=== PATIENT | male | born 1955 | race Caucasian/White ===

== ENCOUNTER 2017-04-18 15:49 | Inpatient (IN) ==
[2017-04-18 16:21] LABS: Basophils % 0.2 %; Hematocrit 38.9 % (37.5-50.1); Hemoglobin 13.6 g/dL (12.9-16.9); Lymphocytes # 1.2 K/mcL (0.6-4.6); Lymphocytes % 5.4 %; Mean Corpuscular Hemoglobin 31.7 pg (28.0-33.3); Mean Corpuscular Volume 90.7 fL (83.0-100.0); Mean Platelet Volume 7.8 fL (9.4-12.4); Monocytes # 2.2 K/mcL (0.0-1.3); Monocytes % 9.9 %; Neutrophils # 18.7 K/mcL (1.6-8.9); Platelet Count 451 K/mcL (140-400); Red Blood Count 4.29 M/mcL (4.19-5.50); Red Cell Distribution Width 12.4 % (11.5-14.5); Segmented Neutrophils % 83.5 %
[2017-04-18 16:26] LABS: INR 1.1
[2017-04-18 16:28] LABS: Activated Partial Thrombo Time 27.7 Seconds (26.0-36.0)
[2017-04-18 16:36] LABS: Alanine Aminotransferase 15 Units/L (0-55); Albumin 2.2 g/dL (3.5-5.0); Albumin/Globulin Ratio 0.4 (1.1-2.2); Alkaline Phosphatase 83 Units/L (38-126); Aspartate Amino Transferase 23 Units/L (5-34); BUN/Creatinine Ratio 9 (6-26); Bilirubin,Direct 0.2 mg/dL (0.0-0.5); Bilirubin,Indirect 0.4 mg/dL (0.0-1.2); Bilirubin,Total 0.6 mg/dL (0.2-1.2); Calcium 9.1 mg/dL (8.6-10.8); Carbon Dioxide 25 mEq/L (19-29); Chloride 83 mEq/L (98-109); Globulin 5.2 g/dL (2.4-3.5); Glucose 107 mg/dL (70-99); Osmolality,Calculated 254 (280-300); Potassium 2.8 mEq/L (3.5-4.5); Sodium 123 mEq/L (136-145); Total Protein 7.4 g/dL (6.0-8.3); eGFR For African Americans > 60 (> 60); eGFR For Non-African Americans > 60 (> 60)
[2017-04-18 16:37] LABS: Blood Urea Nitrogen 5 mg/dL (8-26)
[2017-04-18] MEDS ORDERED: Potassium Chloride 40 MEQ, Lidocaine 1% 2 ML in D5% in Water 500 ML IVPB ONE (17:07)
--- NOTE | 2017-04-18 18:43 | Emergency Department Note ---
Disposition Clinical Impression: Mass of right lung Disposition: Still a Patient Condition: Good Referrals: Andre Dodge MD [Primary Care Provider] - Forms: ED Satisfaction Letter SOB HPI - General Chief Complaint: ED Shortness of Breath/Dyspnea Stated Complaint: weakness, sent from Time Seen by Provider: 04/18/17 15:55 Source: patient, family Mode of arrival: ambulatory Limitations: no limitations Nursing Notes Reviewed: Yes Vital Signs Reviewed: Yes - History of Present Illness Patient presents to the ED with the chief complaint of weakness and shortness of breath. Patient has a long-standing history of smoking and hypertension. Reports that over the last several months he has been getting progressively more weak. He is also been getting more short of breath gradually over the last several weeks. In the last several days he has noticed increasing shortness of breath and has felt extremely weak. He is also had a mildly productive cough. Denies any chest discomfort, abdominal pain, vomiting, pain or swelling in his legs. - Related Data Home Medications Medication Instructions Recorded Confirmed Amlodipine Besylate 04/18/17 Dovonex 04/18/17 04/18/17 Halcinonide 04/18/17 Levaquin 04/18/17 Lidex 04/18/17 Nicotine Patch 04/18/17 Toprol Xl 04/18/17 Allergies Allergy/AdvReac Type Severity Reaction Status Date / Time losartan [From Cozaar] Allergy See Verified 04/18/17 13:41 Comments All systems ED: reviewed and negative except as stated. Constitutional: Reports: chills, weakness. Denies: fever Respiratory: Reports: cough, dyspnea, sputum production Gastrointestinal: Denies: vomiting Past Medical History - Past Medical History Attestation: Yes The following information was validated with the patient. Source: patient Medical history: Reports: hypertension - Social History Smoking Status: Current every day smoker Smokeless Tobacco Status: No Alcohol use: Reports: occasionally Drug use: Reports: none Physical Exam - General Limitations: no limitations General appearance: alert, in no apparent distress, cachectic - Head Head exam: atraumatic, normocephalic, normal inspection - ENT ENT exam: normal exam, normal oropharynx, mucous membranes moist - Neck Neck exam: Present: normal inspection, full ROM, trachea midline - Chest Chest inspection: Present: normal inspection, symmetric chest wall rise - Respiratory Respiratory exam: Absent: normal lung sounds bilaterally (Decreased lung sounds bilaterally, rhonchorous right upper lobe) - Cardiovascular Cardiovascular exam: Present: regular rate, normal rhythm, normal heart sounds - Abdominal Exam Abdominal exam: Present: soft, Non-Tender. Absent: tenderness, distention, guarding, rebound, rigidity - Extremities Exam Extremities exam: Present: normal inspection, full ROM. Absent: tenderness, pedal edema - Neurological Exam Neurological exam: Present: alert, oriented X3 - Psychiatric Psychiatric exam: Present: normal affect, normal mood - Skin Skin exam: Present: warm, dry, intact, normal color Course Course Narrative: 62-year-old male sent over for concerning chest x-ray urgent care. Large right upper lobe pneumonia versus malignancy. Smoking history and cachectic appearance, malignancy is suspected. We will check labs and CT his chest. - Reevaluation(s) Reevaluation #1: Patient will be signed out to the nighttime team, Dr. Gaming and Stephanie pending CT chest Vital Signs Temperature 97.6 F 04/18/17 15:50 Pulse Rate 83 04/18/17 15:50 Respiratory Rate 18 04/18/17 15:50 Blood Pressure 115/67 04/18/17 15:50 O2 Sat by Pulse Oximetry 97 04/18/17 15:50 Temperature 97.6 F 04/18/17 15:50 Pulse Rate 81 04/18/17 18:50 Respiratory Rate 18 04/18/17 18:50 Blood Pressure 125/72 04/18/17 18:50 O2 Sat by Pulse Oximetry 95 04/18/17 18:50 Oxygen Delivery Oxygen Delivery Room Air Shortness of Breath/Dyspnea - Lab Data Result diagrams: 04/18/17 16:10 04/18/17 16:10 Lab Results 04/18/17 04/18/17 04/18/17 Range/Units 16:10 16:10 16:10 WBC 22.4 H (4.3-11.1) K/mcL RBC 4.29 (4.19-5.50) M/mcL Hgb 13.6 (12.9-16.9) g/dL Hct 38.9 (37.5-50.1) % MCV 90.7 (83.0-100.0) fL MCH 31.7 (28.0-33.3) pg MCHC 35.0 (31.6-35.5) g/dL RDW 12.4 (11.5-14.5) % Plt Count 451 H (140-400) K/mcL MPV 7.8 L (9.4-12.4) fL Immature Gran % 1.0 (0-4) % Seg Neutrophils % 83.5 % Lymphocytes % 5.4 % Monocytes % 9.9 % Eosinophils % 0.0 % Basophils % 0.2 % Neutrophils # 18.7 H (1.6-8.9) K/mcL Lymphocytes # 1.2 (0.6-4.6) K/mcL Monocytes # 2.2 H (0.0-1.3) K/mcL Eosinophils # 0.0 (0.0-0.6) K/mcL Basophils # 0.0 (0.0-0.2) K/mcL PT (9.4-12.1) Seconds INR APTT (26.0-36.0) Seconds Sodium 123 L (136-145) mEq/L Potassium 2.8 L (3.5-4.5) mEq/L Chloride 83 L (98-109) mEq/L Carbon Dioxide 25 (19-29) mEq/L BUN 5 L (8-26) mg/dL Creatinine 0.55 L (0.72-1.25) mg/dL Est GFR ( Amer) > 60 (> 60) Est GFR (Non-Af Amer) > 60 (> 60) BUN/Creatinine Ratio 9 (6-26) Glucose 107 H (70-99) mg/dL Calculated Osmolality 254 L (280-300) Lactic Acid 1.9 (0.5-2.2) mmol/L Calcium 9.1 (8.6-10.8) mg/dL Total Bilirubin 0.6 (0.2-1.2) mg/dL Direct Bilirubin 0.2 (0.0-0.5) mg/dL Indirect Bilirubin 0.4 (0.0-1.2) mg/dL AST 23 (5-34) Units/L ALT 15 (0-55) Units/L Alkaline Phosphatase 83 (38-126) Units/L Troponin I (0-0.03) ng/mL B-Natriuretic Peptide (0-100) pg/mL Serum Total Protein 7.4 (6.0-8.3) g/dL Albumin 2.2 L (3.5-5.0) g/dL Globulin 5.2 H (2.4-3.5) g/dL Albumin/Globulin Ratio 0.4 L (1.1-2.2) 04/18/17 04/18/17 04/18/17 Range/Units 16:10 16:10 16:10 WBC (4.3-11.1) K/mcL RBC (4.19-5.50) M/mcL Hgb (12.9-16.9) g/dL Hct (37.5-50.1) % MCV (83.0-100.0) fL MCH (28.0-33.3) pg MCHC (31.6-35.5) g/dL RDW (11.5-14.5) % Plt Count (140-400) K/mcL MPV (9.4-12.4) fL Immature Gran % (0-4) % Seg Neutrophils % % Lymphocytes % % Monocytes % % Eosinophils % % Basophils % % Neutrophils # (1.6-8.9) K/mcL Lymphocytes # (0.6-4.6) K/mcL Monocytes # (0.0-1.3) K/mcL Eosinophils # (0.0-0.6) K/mcL Basophils # (0.0-0.2) K/mcL PT 12.0 (9.4-12.1) Seconds INR 1.1 APTT 27.7 (26.0-36.0) Seconds Sodium (136-145) mEq/L Potassium (3.5-4.5) mEq/L Chloride (98-109) mEq/L Carbon Dioxide (19-29) mEq/L BUN (8-26) mg/dL Creatinine (0.72-1.25) mg/dL Est GFR ( Amer) (> 60) Est GFR (Non-Af Amer) (> 60) BUN/Creatinine Ratio (6-26) Glucose (70-99) mg/dL Calculated Osmolality (280-300) Lactic Acid (0.5-2.2) mmol/L Calcium (8.6-10.8) mg/dL Total Bilirubin (0.2-1.2) mg/dL Direct Bilirubin (0.0-0.5) mg/dL Indirect Bilirubin (0.0-1.2) mg/dL AST (5-34) Units/L ALT (0-55) Units/L Alkaline Phosphatase (38-126) Units/L Troponin I 0.00 (0-0.03) ng/mL B-Natriuretic Peptide 119 H (0-100) pg/mL Serum Total Protein (6.0-8.3) g/dL Albumin (3.5-5.0) g/dL Globulin (2.4-3.5) g/dL Albumin/Globulin Ratio (1.1-2.2) Attestation Statement - Attestation Attestation: I, Damion Adams, examined this patient and my medical decision-making was reviewed with the TECHNICAL COORDINATOR/PA/Advanced Practice Nurse/Resident Physician. I agree with the documented findings, disposition and treatment plan as described except to the extent set forth below. His 2-year-old male presents emergency Department with concerns of increasing shortness of breath. Chest x-ray performed at urgent care setting shows large mass in the right upper lobe. No history of cancer in the past. Patient denies fever. He does have a mildly productive cough of white/green sputum. Laboratory evaluation shows significant leukocytosis. Patient is pending CT evaluation of his chest at the end of my shift. He was signed out to the night physician, Dr. Gaming pending imaging, reevaluation and likely admission for further evaluation of likely cancer.
[2017-04-18] MEDS ORDERED: Levofloxacin 750 MG/150 ML 750 MG/150 ML BAG IVPB ONE (20:36)
--- NOTE | 2017-04-18 20:53 | Emergency Department Note ---
Disposition Clinical Impression: Mass of right lung, Hypokalemia, Hyponatremia Community acquired pneumonia Qualifiers: Laterality: right Lung location: unspecified part of lung Qualified Code(s): J18.9 - Pneumonia, unspecified organism Disposition: Admitted As Inpatient Condition: Fair Referrals: Andre Dodge MD [Primary Care Provider] - Forms: ED Satisfaction Letter Time of Disposition: 21:03 SOB HPI - General Chief Complaint: ED Shortness of Breath/Dyspnea Stated Complaint: weakness, sent from Time Seen by Provider: 04/18/17 15:55 Source: patient, family Mode of arrival: ambulatory Limitations: no limitations Nursing Notes Reviewed: Yes Vital Signs Reviewed: Yes - Related Data Home Medications Medication Instructions Recorded Confirmed Amlodipine Besylate 04/18/17 Dovonex 04/18/17 04/18/17 Halcinonide 04/18/17 Levaquin 04/18/17 Lidex 04/18/17 Nicotine Patch 04/18/17 Toprol Xl 04/18/17 Allergies Allergy/AdvReac Type Severity Reaction Status Date / Time losartan [From Cozaar] Allergy See Verified 04/18/17 13:41 Comments Constitutional: Reports: chills, weakness. Denies: fever Respiratory: Reports: cough, dyspnea, sputum production Gastrointestinal: Denies: vomiting Past Medical History - Past Medical History Medical history: Reports: hypertension - Social History Smoking Status: Current every day smoker Smokeless Tobacco Status: No Alcohol use: Reports: occasionally Drug use: Reports: none Physical Exam - General Limitations: no limitations General appearance: alert, in no apparent distress, cachectic Course Course Narrative: This patient was signed out to me at shift change from Dr. Beach and Dr. Adams. Please refer to their notes for complete details of history and physical examination. Patient is a 62-year-old male smoker who presented with a complaint of generalized weakness which started last evening about 7 PM. He fell during the night trying to go to the bathroom. No injury from the fall. Today he has been very weak and unable to get around. He does complain of some mild shortness of breath which is chronic. He admits to a frequent cough which also is chronic but seems to be gradually getting worse. He has not noticed any fever. He was seen at an urgent care and a chest x-ray showed a large right upper lobe dense consolidation. At shift change patient is awaiting a CTA of the lungs. On examination patient is a well-developed thin elderly male in no acute distress. He is alert and oriented 3. There is no cyanosis or diaphoresis. Chest is nontender to palpation. Patient has coarse rhonchi and congestion in the right upper lobe on auscultation. A few scattered wheezes. Heart regular rate and rhythm. Abdomen soft and nontender with normal bowel sounds. - Reevaluation(s) Reevaluation #1: Test results and plan discussed with patient and and they are agreeable to hospital admission. Patient is receiving IV potassium for his hypokalemia. He has already had blood cultures obtained and will be started on Levaquin. I will consult the hospitalist for admission. Time: 20:50 - Consultations Consultation #1: The hospitalist, Dr. Vick, was consulted and accepted admission of the patient. Time: 21:00 Vital Signs Temperature 97.6 F 04/18/17 15:50 Pulse Rate 83 04/18/17 15:50 Respiratory Rate 18 04/18/17 15:50 Blood Pressure 115/67 04/18/17 15:50 O2 Sat by Pulse Oximetry 97 04/18/17 15:50 Temperature 97.6 F 04/18/17 15:50 Pulse Rate 103 04/18/17 20:15 Respiratory Rate 18 04/18/17 18:50 Blood Pressure 122/83 04/18/17 20:15 O2 Sat by Pulse Oximetry 93 04/18/17 20:15 Oxygen Delivery Oxygen Delivery Room Air Shortness of Breath/Dyspnea - Lab Data Result diagrams: 04/18/17 16:10 04/18/17 16:10 Lab Results 04/18/17 04/18/17 04/18/17 Range/Units 16:10 16:10 16:10 WBC 22.4 H (4.3-11.1) K/mcL RBC 4.29 (4.19-5.50) M/mcL Hgb 13.6 (12.9-16.9) g/dL Hct 38.9 (37.5-50.1) % MCV 90.7 (83.0-100.0) fL MCH 31.7 (28.0-33.3) pg MCHC 35.0 (31.6-35.5) g/dL RDW 12.4 (11.5-14.5) % Plt Count 451 H (140-400) K/mcL MPV 7.8 L (9.4-12.4) fL Immature Gran % 1.0 (0-4) % Seg Neutrophils % 83.5 % Lymphocytes % 5.4 % Monocytes % 9.9 % Eosinophils % 0.0 % Basophils % 0.2 % Neutrophils # 18.7 H (1.6-8.9) K/mcL Lymphocytes # 1.2 (0.6-4.6) K/mcL Monocytes # 2.2 H (0.0-1.3) K/mcL Eosinophils # 0.0 (0.0-0.6) K/mcL Basophils # 0.0 (0.0-0.2) K/mcL PT (9.4-12.1) Seconds INR APTT (26.0-36.0) Seconds Sodium 123 L (136-145) mEq/L Potassium 2.8 L (3.5-4.5) mEq/L Chloride 83 L (98-109) mEq/L Carbon Dioxide 25 (19-29) mEq/L BUN 5 L (8-26) mg/dL Creatinine 0.55 L (0.72-1.25) mg/dL Est GFR ( Amer) > 60 (> 60) Est GFR (Non-Af Amer) > 60 (> 60) BUN/Creatinine Ratio 9 (6-26) Glucose 107 H (70-99) mg/dL Calculated Osmolality 254 L (280-300) Lactic Acid 1.9 (0.5-2.2) mmol/L Calcium 9.1 (8.6-10.8) mg/dL Total Bilirubin 0.6 (0.2-1.2) mg/dL Direct Bilirubin 0.2 (0.0-0.5) mg/dL Indirect Bilirubin 0.4 (0.0-1.2) mg/dL AST 23 (5-34) Units/L ALT 15 (0-55) Units/L Alkaline Phosphatase 83 (38-126) Units/L Troponin I (0-0.03) ng/mL B-Natriuretic Peptide (0-100) pg/mL Serum Total Protein 7.4 (6.0-8.3) g/dL Albumin 2.2 L (3.5-5.0) g/dL Globulin 5.2 H (2.4-3.5) g/dL Albumin/Globulin Ratio 0.4 L (1.1-2.2) 04/18/17 04/18/17 04/18/17 Range/Units 16:10 16:10 16:10 WBC (4.3-11.1) K/mcL RBC (4.19-5.50) M/mcL Hgb (12.9-16.9) g/dL Hct (37.5-50.1) % MCV (83.0-100.0) fL MCH (28.0-33.3) pg MCHC (31.6-35.5) g/dL RDW (11.5-14.5) % Plt Count (140-400) K/mcL MPV (9.4-12.4) fL Immature Gran % (0-4) % Seg Neutrophils % % Lymphocytes % % Monocytes % % Eosinophils % % Basophils % % Neutrophils # (1.6-8.9) K/mcL Lymphocytes # (0.6-4.6) K/mcL Monocytes # (0.0-1.3) K/mcL Eosinophils # (0.0-0.6) K/mcL Basophils # (0.0-0.2) K/mcL PT 12.0 (9.4-12.1) Seconds INR 1.1 APTT 27.7 (26.0-36.0) Seconds Sodium (136-145) mEq/L Potassium (3.5-4.5) mEq/L Chloride (98-109) mEq/L Carbon Dioxide (19-29) mEq/L BUN (8-26) mg/dL Creatinine (0.72-1.25) mg/dL Est GFR ( Amer) (> 60) Est GFR (Non-Af Amer) (> 60) BUN/Creatinine Ratio (6-26) Glucose (70-99) mg/dL Calculated Osmolality (280-300) Lactic Acid (0.5-2.2) mmol/L Calcium (8.6-10.8) mg/dL Total Bilirubin (0.2-1.2) mg/dL Direct Bilirubin (0.0-0.5) mg/dL Indirect Bilirubin (0.0-1.2) mg/dL AST (5-34) Units/L ALT (0-55) Units/L Alkaline Phosphatase (38-126) Units/L Troponin I 0.00 (0-0.03) ng/mL B-Natriuretic Peptide 119 H (0-100) pg/mL Serum Total Protein (6.0-8.3) g/dL Albumin (3.5-5.0) g/dL Globulin (2.4-3.5) g/dL Albumin/Globulin Ratio (1.1-2.2)
[2017-04-18] MEDS ORDERED: Ondansetron 4 MG/2 ML VIAL IVP PRN (22:41)
[2017-04-18] MEDS ORDERED: Acetaminophen 325 MG TABLET PO PRN (22:41)
[2017-04-18] MEDS ORDERED: *HR* Morphine 2 MG/ML SYRINGE IVP PRN (22:41)
[2017-04-18] MEDS ORDERED: Naloxone 0.4 MG/ML INJ IVP PRN (22:41)
[2017-04-18] MEDS ORDERED: 0.9 % Sodium Chloride w KCl 20 MEQ/1,000 ML MLS IVC SCH (22:45)
[2017-04-18] MEDS ORDERED: *HR* LORazepam 2 MG/ML VIAL IVP PRN (22:47)
[2017-04-18] MEDS ORDERED: Vancomycin 750 MG in D5% in Water 250 ML IVPB SCH (23:00)
--- NOTE | 2017-04-18 23:02 | Internal Med History&Physical ---
Date of Encounter: 04/18/17 Time of Encounter: 22:00 Assessment and Plan (1) Pneumonia Current visit: Yes Status: Acute 1. Will try to obtain sputum culture and gram stain; blood cultures drawn in ER. 2. Strong suspicion for post-obstructive process and aspiration as well. 3. Will treat with IV Vancomycin, Zosyn, and Flagyl. 4. Oxygen and aerosols as needed for support. Qualifiers: Pneumonia type: due to unspecified organism Laterality: right Lung location: upper lobe of lung Qualified Code(s): J18.1 - Lobar pneumonia, unspecified organism (2) Mass of right lung Current visit: Yes Status: Suspected 1. Suspect lung cancer. 2. Consult Pulmonology; patient will need bronchoscopy or CT guided biopsy. (3) Alcoholism Current visit: Yes Status: Chronic 1. Patient at high risk of withdrawal. 2. Will start CIWA protocol. 3. Will order BEER TID with meals -- one can. 4. MVI, Thiamine, Folate daily in IVF. 5. Monitor closely for withdrawal. (4) Hypokalemia Current visit: Yes Status: Acute 1. Patient received 40 meQ IV in ER. 2. Will recheck around midnight and with AM labs. 3. Monitor closely and treat as needed. (5) Hyponatremia Current visit: Yes Status: Acute 1. Likely due to SIADH from pneumonia and/or lung mass compounded by chronic alcohol abuse. 2. Will gingerly hydrate with IVF as he appears a little dry. 3. Monitor sodium closely. I suspect this is chronic given his history. (6) DVT prophylaxis Current visit: Yes Status: Acute 1. Heparin SQ. Internal Medicine - H&P: HPI Chief complaint: falling; weaknees; cough Admitted From: Emergency Dept Plans for Post Hospital Care: Home History of present illness: Mr. Barfield is a 62 year old male who presents with a history of falling, profound weakness, and inability to stand up since yesterday. He has had significant weakness over the last few weeks, but it truly bothered him yesterday and into today. He also had some productive cough over the last few days with some subjective low-grade fevers. He has had no nausea or vomiting but he has had some loose stool since yesterday. He has had about a 5 pound weight loss over the last few weeks. He first went to urgent care and was referred to the ER after having a chest x-ray confirming right upper lobe pneumonia and possible mass. He had CT scan in the ER which confirmed the same findings, and a mass cannot be ruled out. He was found to be profoundly hypokalemic and hyponatremic as well. He was subsequently admitted to the hospitalist service. I met patient and his in the ER and they confirmed above history. Patient appears cachectic and very weak. He is a heavy drinker of alcohol, drinking a sixpack of beer every day for the last 30+ years. He also is smokes at least a 6 pack of beer per day for the last 40 years. He has gone through alcohol withdrawal in the past, and he and his are both asking me to order him some beer while in the hospital so as to avoid alcohol withdrawal. I discussed with them the finding that he probably has lung cancer complicated by pneumonia. However, the diagnosis is not yet confirmed until he undergoes biopsy, either via bronchoscopy and/or CT-guided IR procedure. They both voiced understanding and agreed to proceed with hospitalization and further diagnostic workup. Past Med Surg Social Fam HX - Past Medical History Attestation: Yes The following information was validated with the patient. Source: patient, old records reviewed, obtained from family Medical history: hypertension, other (alcoholism) Psychiatric history: no psych history - Past Surgical History Surgical History: no surgical history - Social History Smoking Status: Current every day smoker Smokeless Tobacco Status: No Alcohol use: heavy Drug use: none Current living situation: Home, With Family Activity Level: Independent ambulation - Family History Mother Living Status: Still Living Hx Family Respiratory Disorders: Yes Father Living Status: Hx Family Respiratory Disorders: No Hx Family Endocrine Disorder: Yes (diabetes) Internal Medicine - H&P: Meds Amlodipine Besylate 04/18/17 [History] Dovonex 04/18/17 [History] Halcinonide 04/18/17 [History] Levaquin 04/18/17 [History] Lidex 04/18/17 [History] Nicotine Patch 04/18/17 [History] Toprol Xl 04/18/17 [History] 3 Allergy/AdvReac Type Severity Reaction Status Date / Time losartan [From Cozaar] Allergy See Verified 04/18/17 13:41 Comments - Constitutional Constitutional: anorexia, fever(s), weight loss, no chills, no night sweats - EENT Eyes: 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), no blurry vision Ears: no ear pain, no tinnitus Nose, mouth and throat: no sinus pressure, no sore throat - Cardiovascular Cardiovascular ROS IM: dyspnea, dyspnea on exertion, lightheadedness, no chest pain, no syncope - Respiratory Respiratory: cough, dyspnea, dyspnea on exertion, wheezing, chest congestion, excessive phlegm production, no hemoptysis - Gastrointestinal Gastrointestinal: diarrhea, no abdominal pain, no hematemesis, no hematochezia, no melena, no nausea, no vomiting - Genitourinary Genitourinary ROS male: no dysuria, no flank pain, no hematuria - Musculoskeletal Musculoskeletal ROS IM: no arthralgias, no back pain - Integumentary Integumentary IM: no rash, no jaundice - Neurological Neurological ROS: weakness, no focal weakness, no frequent falls, no headache(s) , no vertigo - Psychiatric Psychiatric: no anxiety, no depression - Endocrine Endocrine IM: no cold intolerance, no heat intolerance, no polydipsia, no polyuria - Hematologic/Lymphatic Hematologic/Lymphatic: easy bruising, no lymphadenopathy - Allergic/Immunologic Allergic/Immunologic: wheezing, no GI upset with certain foods - Constitutional Vitals: Temp Pulse Resp BP Pulse Ox 97.6 F 78 20 116/74 91 04/18/17 15:50 04/18/17 21:16 04/18/17 22:15 04/18/17 22:15 04/18/17 21:16 General appearance: Present: cachectic, A&O X 3, underweight, answers questions appropriately - Head Head exam: Present: atraumatic, normal inspection - Expanded Head Exam Head exam expanded: Absent: abrasion, contusion, general tenderness - Eye Eye exam: Absent: scleral icterus Pupils: Present: irregular (right -- blind) - ENT ENT exam: Present: mucous membranes dry, normal exam - Neck Neck exam general surgery: Present: full ROM, supple, trachea midline. Absent: lymphadenopathy, tenderness - Respiratory Respiratory exam: Present: decreased breath sounds (especially in right upper lobe), prolonged expiratory phase, rhonchi, wheezes. Absent: chest wall tenderness, rales, respiratory distress Additional comments: barrel chested - Cardiovascular Cardiovascular exam: Present: RRR, +S1, +S2. Absent: diastolic murmur, JVD, systolic murmur - GI/Abdominal GI/Abdominal exam: Present: normal bowel sounds, soft. Absent: guarding, hepatomegaly, mass, rebound, splenomegaly, tenderness - Extremities Exam Extremities exam: Present: full ROM, warm. Absent: calf tenderness, joint swelling, pedal edema Additional comments: muscle atrophy of all 4 extremities - Back Exam Back exam: Present: normal inspection. Absent: CVA tenderness (L), CVA tenderness (R) - Neurological Exam Neurological exam: Present: alert, CN II-XII intact, oriented X3, no focal deficits Additional comments: generalized weakness but no focal deficits - Psychiatric Psychiatric exam: Present: flat affect - Skin Skin exam: Present: dry, warm. Absent: rash Internal Med - H&P Results - Labs CBC & Chem 7: 04/18/17 16:10 04/18/17 16:10 - EKG Data -: EKG Interpreted by Myself EKG shows normal: sinus rhythm - EKG Data Prior EKG available for review: no EKG comments: 04/18/17 23:10 NSR; no acute changes - Diagnostic Studies Chest x-ray Status: image reviewed by me (RUL infiltrate/mass) CT scan - chest Additional comments: CT report reviewed
[2017-04-18] MEDS: Nicotine 21 MG PATCH.TD24 TD SCH (23:19)
[2017-04-18] MEDS: Beer can PO SCH (23:21)
[2017-04-18] MEDS: Piperacillin/Tazobactam 3.375 GM in D5% in Water (Mini-Bag+) 100 ML IVPB SCH (23:32)
[2017-04-18] MEDS: MetroNIDAZOLE 500 MG/100 ML 500 MG/100 ML BAG IVPB SCH (23:34)
[2017-04-19 00:14] LABS: Basophils % 0.1 %; Hematocrit 32.8 % (37.5-50.1); Lymphocytes # 0.9 K/mcL (0.6-4.6); Lymphocytes % 4.3 %; Mean Corpuscular HGB Conc 35.7 g/dL (31.6-35.5); Mean Corpuscular Hemoglobin 32.9 pg (28.0-33.3); Mean Corpuscular Volume 92.1 fL (83.0-100.0); Mean Platelet Volume 7.8 fL (9.4-12.4); Monocytes # 2.4 K/mcL (0.0-1.3); Monocytes % 11.9 %; Neutrophils # 16.6 K/mcL (1.6-8.9); Platelet Count 393 K/mcL (140-400); Red Blood Count 3.56 M/mcL (4.19-5.50); Red Cell Distribution Width 12.3 % (11.5-14.5); Segmented Neutrophils % 82.7 %
[2017-04-19 00:15] LABS: Hemoglobin 11.7 g/dL (12.9-16.9)
[2017-04-19 00:30] LABS: BUN/Creatinine Ratio 8 (6-26); Calcium 8.4 mg/dL (8.6-10.8); Carbon Dioxide 26 mEq/L (19-29); Chloride 87 mEq/L (98-109); Glucose 102 mg/dL (70-99); Magnesium 1.3 mg/dL (1.6-2.6); Osmolality,Calculated 251 (280-300); Potassium 3.1 mEq/L (3.5-4.5); Sodium 122 mEq/L (136-145); eGFR For African Americans > 60 (> 60); eGFR For Non-African Americans > 60 (> 60)
[2017-04-19 00:32] LABS: Blood Urea Nitrogen 4 mg/dL (8-26)
[2017-04-19] MEDS ORDERED: Vancomycin 1,250 MG in D5% in Water 250 ML IVPB ONE (01:00)
[2017-04-19] MEDS ORDERED: Magnesium Sulfate 2 GM in D5% in Water 100 ML IVPB ONE (01:04)
[2017-04-19] MEDS: *HR* Heparin 5,000 UNIT/ML VIAL SQ SCH ×2 (06:21→18:46)
[2017-04-19 06:57] LABS: BUN/Creatinine Ratio 6 (6-26); Carbon Dioxide 26 mEq/L (19-29); Chloride 89 mEq/L (98-109); Glucose 121 mg/dL (70-99); Potassium 3.3 mEq/L (3.5-4.5); Sodium 123 mEq/L (136-145); eGFR For African Americans > 60 (> 60); eGFR For Non-African Americans > 60 (> 60)
[2017-04-19 06:58] LABS: Alanine Aminotransferase 11 Units/L (0-55); Albumin/Globulin Ratio 0.5 (1.1-2.2); Alkaline Phosphatase 64 Units/L (38-126); Aspartate Amino Transferase 16 Units/L (5-34); Bilirubin,Total 0.5 mg/dL (0.2-1.2); Globulin 3.9 g/dL (2.4-3.5); Magnesium 1.9 mg/dL (1.6-2.6); Osmolality,Calculated 254 (280-300)
[2017-04-19 07:08] LABS: Albumin 1.8 g/dL (3.5-5.0); Blood Urea Nitrogen 3 mg/dL (8-26); Total Protein 5.7 g/dL (6.0-8.3)
[2017-04-19] MEDS ORDERED: *HR* LORazepam 2 MG/ML VIAL IVP PRN ×2 (08:11)
[2017-04-19] MEDS: MetroNIDAZOLE 500 MG/100 ML 500 MG/100 ML BAG IVPB SCH ×2 (08:47→11:10)
[2017-04-19] MEDS: Nicotine 21 MG PATCH.TD24 TD SCH (08:49)
[2017-04-19] MEDS: Folic Acid 1 MG TABLET PO SCH (08:49)
[2017-04-19] MEDS: Thiamine (B-1) 100 MG TABLET PO SCH (09:08)
[2017-04-19] MEDS: Beer can PO SCH (09:10)
[2017-04-19] MEDS: Piperacillin/Tazobactam 3.375 GM in D5% in Water (Mini-Bag+) 100 ML IVPB SCH (09:10)
--- NOTE | 2017-04-19 09:36 | Pulmonology Consult Note ---
Date of Encounter: 04/19/17 Time of Encounter: 09:00 Assessment and Plan (1) Mass of right lung Current Visit: Yes Status: Suspected I have reviewed CT chest and discussed with primary team that I suspect there is a possibility of endobronchial lesion and there is dense area of consolidation which I suspect postobstructive collapse of the lung versus tumor and obviously postobstructive pneumonia is a possibility. Patient has significant history of smoking tobacco and had a suspicion this is malignant in nature. Patient will need to airway inspection and biopsy. I have explained this to the patient and his family in the presence of the nurse and explained all the risks, alternative, benefits of the procedure and he understand and he agreed. Patient will be nothing by mouth post midnight for the procedure tomorrow. (2) Emphysema of lung Current Visit: Yes Status: Chronic Patient has significant emphysema from smoking tobacco and bronchodilators is recommended. This was discussed with primary team. Qualifiers: Emphysema type: centrilobular Qualified Code(s): J43.2 - Centrilobular emphysema (3) Hyponatremia Current Visit: Yes Status: Acute This could be multifactorial and there is significant history of alcohol abuse which could be a reason and also SIADH is a possibility. Checking urine osmolality and sodium sodium will be helpful. Clinically patient is dry and replacement is recommended with normal saline and monitor sodium level if it drops again he might need 3% saline. (4) Alcoholism Current Visit: Yes Status: Chronic (5) Tobacco abuse Current Visit: Yes Status: Chronic Patient was advised to quit smoking (6) Tobacco abuse counseling Current Visit: Yes Status: Acute (7) Pneumonia Current Visit: Yes Status: Acute This could be postobstructive and broad-spectrum antibiotics are reasonable. Recommend to stop Flagyl. Qualifiers: Pneumonia type: due to unspecified organism Laterality: right Lung location: upper lobe of lung Qualified Code(s): J18.1 - Lobar pneumonia, unspecified organism History of Present Illness Consult date: 04/19/17 Requesting physician: Samantha Huffman Reason for consult: abnormal CXR/CT, other (Lung mass) Chief complaint: Cough and generalized weakness History of present illness: This is a very pleasant 62-year-old male with significant history of smoking tobacco more than [id number] and continue to smoke. Patient is hard of hearing and history is taken from family at the bedside and also from the patient. Patient has history of falling and generalized weakness and could not stand up for the last few days. He has been having productive white sputum but denies any hemoptysis or chest pain. He has about 4-5 pounds of weight loss and poor appetite. He denies any nausea or vomiting. He had a chest x-ray which showed right upper lobe pneumonia and CT chest was done with evidence of dense consolidation of the right upper lobe/mass to my reading. He was found also to be hyponatremic and pulmonary consulted for an evaluation. He has significant history of heavy drinking of alcohol about 6 pack of beer every day for more than 30 years. He denies any history of TB in the past and no night sweats and also denies any recent travel or sick contact. According to patient he has never seen a managed care manager and never had pulmonary function test and he has not been using any inhalers. He denies any significant dyspnea. Past Med Surg Social Fam HX - Past Medical History Medical history: hypertension Psychiatric history: no psych history - Past Surgical History Surgical History: no surgical history - Social History Smoking Status: Current every day smoker Packs per day: 1 Smokeless Tobacco Status: No Alcohol use: occasionally Drug use: none - Family History Father Hx Family Cardiac Disorders: Yes Mother Living Status: Still Living Hx Family Respiratory Disorders: Yes Medications and Allergies Amlodipine Besylate 04/18/17 [History] Dovonex 04/18/17 [History] Halcinonide 04/18/17 [History] Levaquin 04/18/17 [History] Lidex 04/18/17 [History] Nicotine Patch 04/18/17 [History] Toprol Xl 04/18/17 [History] 3 Allergy/AdvReac Type Severity Reaction Status Date / Time losartan [From Cozaar] Allergy See Verified 04/18/17 13:41 Comments All Systems: A 10-system review of systems was performed and is negative for pertinent findings except as documented above in the HPI. Physical Examination Vital Signs: Vital Signs, Last 4 Hours Temp Pulse Resp BP Pulse Ox 04/19/17 07:01 97.8 F 72 16 115/61 94 General appearance: no acute distress Eyes: nonicteric ENT: oropharynx dry Mallampati (class): 1 Neck: supple, no lymphadenopathy Effort: normal Inspection: hyperextended Auscultation: left: clear, right: diminished breath sounds (Right upper lobe zone) Percussion: bilateral: not dull Cardiovascular: regular rate and rhythm Gastrointestinal: normoactive bowel sounds, non-distended Extremities: no cyanosis, no edema normal mental status, non-focal exam depressed Results - Laboratory Findings CBC and BMP: 04/19/17 00:04 04/19/17 06:06 PT/INR, D-dimer PT 12.0 Seconds (9.4-12.1) 04/18/17 16:10 Abnormal lab findings: Abnormal lab results WBC 20.1 K/mcL (4.3-11.1) H 04/19/17 00:04 RBC 3.56 M/mcL (4.19-5.50) L 04/19/17 00:04 Hgb 11.7 g/dL (12.9-16.9) L D 04/19/17 00:04 Hct 32.8 % (37.5-50.1) L 04/19/17 00:04 MCHC 35.7 g/dL (31.6-35.5) H 04/19/17 00:04 MPV 7.8 fL (9.4-12.4) L 04/19/17 00:04 Neutrophils # 16.6 K/mcL (1.6-8.9) H 04/19/17 00:04 Monocytes # 2.4 K/mcL (0.0-1.3) H 04/19/17 00:04 Sodium 123 mEq/L (136-145) L 04/19/17 06:06 Potassium 3.3 mEq/L (3.5-4.5) L 04/19/17 06:06 Chloride 89 mEq/L (98-109) L 04/19/17 06:06 BUN 3 mg/dL (8-26) L 04/19/17 06:06 Creatinine 0.53 mg/dL (0.72-1.25) L 04/19/17 06:06 Glucose 121 mg/dL (70-99) H 04/19/17 06:06 Calculated Osmolality 254 (280-300) L 04/19/17 06:06 Calcium 8.0 mg/dL (8.6-10.8) L 04/19/17 06:06 B-Natriuretic Peptide 119 pg/mL (0-100) H 04/18/17 16:10 Serum Total Protein 5.7 g/dL (6.0-8.3) L D 04/19/17 06:06 Albumin 1.8 g/dL (3.5-5.0) L 04/19/17 06:06 Globulin 3.9 g/dL (2.4-3.5) H 04/19/17 06:06 Albumin/Globulin Ratio 0.5 (1.1-2.2) L 04/19/17 06:06 - Diagnostic Findings CT scan - chest: report reviewed, image reviewed - Clinical Findings Intake & Output: Intake & Output 04/18/17 04/19/17 04/19/17 23:59 07:59 15:59 Intake Total 522 / 522 731 / 731 Output Total 0 / 0 525 / 525 Balance 522 / 522 206 / 206 Weight 56.8 kg Consult Discharge Plan - Plan Referrals: Andre Dodge MD [Primary Care Provider] -
[2017-04-19] MEDS ORDERED: Ipratropium/Albuterol Neb 3 ML IH PRN (10:29)
--- NOTE | 2017-04-19 10:33 | Internal Med Progress Note ---
Date of Encounter: 04/19/17 Time of Encounter: 10:32 - Assessment and plan (1) Pneumonia Current Visit: Yes Status: Acute Assessment and plan: will continue IV abx with Vancomycin and Zosyn follow up blood cultures O2 supplementation closely monitor respiratory status Qualifiers: Pneumonia type: due to unspecified organism Laterality: right Lung location: upper lobe of lung Qualified Code(s): J18.1 - Lobar pneumonia, unspecified organism (2) Mass of right lung Current Visit: Yes Status: Suspected Assessment and plan: Pulmonary evaluation appreciated NPO after midnight for bronchoscopy continue IV abx as listed above bronchodilator support (3) Hypokalemia Current Visit: Yes Status: Acute Assessment and plan: K supplemented continue to monitor electrolytes and replace as needed (4) Hyponatremia Current Visit: Yes Status: Chronic Assessment and plan: likely secondary to alcohol abuse and SIADH given lung mass will continue with fluid restriction at this time mental status AAO x 3 therefore will hold off on 3% NS will closely monitor sodium levels q6h, correction goal: 6-8Meq in 24 hours will obtain urine Na and osm. will consider nephrology evaluation if hyponatremia worsens despite fluid restriction Will consider 3% NS if hyponatremia worsens with an acute mental status change (5) Alcoholism Current Visit: Yes Status: Chronic Assessment and plan: closely monitoring for alcohol withdrawal symptoms continue CIWA protocol Ativan prn as per CIWA protocol Thiamine, Folate supplementation (6) DVT prophylaxis Current Visit: Yes Status: Acute Assessment and plan: Heparin SQ (7) Tobacco abuse Current Visit: Yes Status: Chronic Assessment and plan: nicotine supplementation provided (8) Emphysema of lung Current Visit: Yes Status: Chronic Qualifiers: Emphysema type: centrilobular Qualified Code(s): J43.2 - Centrilobular emphysema - Subjective Interval history: Patient seen and examined with family present at bedside. Patient denies any sob at this time. He is noted to have right lung mass for which he will undergo bronchoscopy for diagnostic purposes. - Constitutional Vitals: Temp Pulse Resp BP Pulse Ox 97.8 F 72 16 115/61 94 04/19/17 07:01 04/19/17 07:01 04/19/17 07:01 04/19/17 07:01 04/19/17 07:01 General appearance: Present: cachectic, A&O X 3, no acute distress, underweight , answers questions appropriately - Head Head exam: Present: atraumatic, normocephalic - Eye Eye exam: Present: conjuntiva pink, sclera anicteric - Respiratory Respiratory exam: Absent: accessory muscle use, wheezes (coarse breath sounds diffusely ), tachypnea - Cardiovascular Cardiovascular exam: Present: RRR, +S1, +S2. Absent: diastolic murmur, gallop, rubs, systolic murmur - GI/Abdominal GI/Abdominal exam: Present: normal bowel sounds, soft, no peritoneal signs. Absent: distended, tenderness - Extremities Exam Extremities exam: Present: warm, radial pulses palpable and symmetrical. Absent : calf tenderness, cyanotic, pedal edema - Neurological Exam Neurological exam: Present: alert, oriented X3 Internal Medicine: Result - Labs CBC & Chem 7: 04/19/17 00:04 04/19/17 08:37 Labs: Short CBC 04/19/17 Range/Units 00:04 WBC 20.1 H (4.3-11.1) K/mcL Hgb 11.7 L D (12.9-16.9) g/dL Hct 32.8 L (37.5-50.1) % Plt Count 393 (140-400) K/mcL Neutrophils # 16.6 H (1.6-8.9) K/mcL BMP 04/19/17 04/19/17 04/19/17 00:04 06:06 08:37 Sodium 122 L 123 L 123 L Potassium 3.1 L 3.3 L Chloride 87 L 89 L Carbon Dioxide 26 26 BUN 4 L 3 L Creatinine 0.50 L 0.53 L Glucose 102 H 121 H Calcium 8.4 L 8.0 L Liver Function 04/19/17 Range/Units 06:06 Total Bilirubin 0.5 (0.2-1.2) mg/dL AST 16 (5-34) Units/L ALT 11 (0-55) Units/L Alkaline Phosphatase 64 (38-126) Units/L Albumin 1.8 L (3.5-5.0) g/dL - ABG Interpretation ABG results: PT/INR, D-dimer PT 12.0 Seconds (9.4-12.1) 04/18/17 16:10 Consult Discharge Plan - Plan Referrals: Andre Dodge MD [Primary Care Provider] -
[2017-04-19] MEDS: Piperacillin/Tazobactam 3.375 GM in 0.9 % Sodium Chloride Mini Bag 100 ML IVPB SCH ×2 (11:02→18:45)
[2017-04-19] MEDS: Ipratropium/Albuterol Neb 3 ML IH SCH ×4 (11:11→23:13)
[2017-04-19] MEDS ORDERED: Vancomycin 1,000 MG in D5% in Water 250 ML IVPB SCH (13:00)
[2017-04-19] MEDS: 0.9 % Sodium Chloride 1,000 ML IVC SCH (15:07)
--- NOTE | 2017-04-19 15:39 | Nephrology Consult Note ---
Date of Encounter: 04/19/17 Time of Encounter: 15:37 Assessment and Plan (1) Hyponatremia Current Visit: Yes Status: Chronic Patient with euvolemic or possibly hypovolemic hyponatremia. This could be the result of SIADH if the lung mass is lung cancer. There is a possibility of volume depletion also being the culprit for the patient's hyponatremia. I agree with a trial of normal saline. Watch his sodium carefully as he did not want to correct any faster than 8 mEq per liter of sodium daily. For this patient he would not want his sodium level to rise above 130 until this time tomorrow. We will request records from his primary care provider. (2) Community acquired pneumonia Current Visit: Yes Status: Acute Continue antibiotics. Possibly postobstructive pneumonia. Pulmonary is following. Qualifiers: Laterality: right Lung location: unspecified part of lung Qualified Code( s): J18.9 - Pneumonia, unspecified organism (3) Hypokalemia Current Visit: Yes Status: Acute Replace and follow. Magnesium is low. We will replace magnesium. (4) Alcoholism Current Visit: Yes Status: Chronic CIWA protocol (5) Mass of right lung Current Visit: Yes Status: Suspected Pulmonary following. Anticipate biopsy. History of Present Illness - Reason for Consult Consult date: 04/19/17 hyponatremia - Chief Complaint Hyponatremia - History of Present Illness Mr. Barfield is a [age] year old man with a history of alcohol abuse who presents with weakness and a cough and was found to have a lung mass and pneumonia. He receives his primary care from Dr. Andre Dodge in [place], [place]. History is obtained from talking with the primary care team, speaking with the patient, speaking with the patient's family and review of the medical records. The patient has not been feeling well for several weeks with progressive weakness along with the development of a cough. His symptoms progressed to needing to come to the hospital for evaluation. He received a CT scan of his chest which revealed a infiltrate and a lung mass. Patient has a history of poor consumption and consumes at least a sixpack of beer daily and has done so for several years. He has experience alcohol withdrawal in the past. He denies a history of hyponatremia or other electrolyte imbalance. His reports that he has had diarrhea for several days prior to admission. He denies nausea or vomiting. Past Med Surg Social Fam HX - Past Medical History Medical history: hypertension Psychiatric history: no psych history - Past Surgical History Surgical History: no surgical history - Social History Smoking Status: Current every day smoker Packs per day: 1 Smokeless Tobacco Status: No Alcohol use: occasionally Drug use: none - Family History Father Hx Family Cardiac Disorders: Yes Mother Living Status: Still Living Hx Family Respiratory Disorders: Yes Medications and Allergies Amlodipine Besylate [Amlodipine Besylate] 10 mg PO DAILY 04/19/17 [History] Metoprolol Succinate 100 mg PO DAILY 04/19/17 [History] 3 Allergy/AdvReac Type Severity Reaction Status Date / Time losartan [From Cozaar] Allergy See Verified 04/19/17 13:17 Comments Review of Systems All Systems: reviewed and no additional remarkable complaints except as stated ( As documented in the history of present illness.) Exam - Vital Signs Vital signs: Initial Vital Signs Temp Pulse Resp BP Pulse Ox 97.6 F 83 18 115/67 97 04/18/17 15:50 04/18/17 15:50 04/18/17 15:50 04/18/17 15:50 04/18/17 15:50 Vital Signs - Last 8 Hours Temp Pulse Resp BP Pulse Ox 04/19/17 15:32 98.9 F 107 18 155/83 94 04/19/17 11:11 16 96 04/19/17 10:29 98.2 F 70 18 121/61 95 04/19/17 08:45 21 Intake and Output 04/18/17 04/19/17 04/19/17 23:59 07:59 15:59 Intake Total 522 / 522 731 / 731 700 / 700 Output Total 0 / 0 525 / 525 650 / 650 Balance 522 / 522 206 / 206 50 / 50 Intake: IV Fluids 522 / 522 731 / 731 100 / 100 KCl 20 mEq in 0.9% Sodium 531 / 531 Chloride 20 meq In 1,000 ml @ 75 mls/hr IVC . [id number] [facility] Rx#: [id number] Flagyl Premix 500 MG/100 100 / 100 ML 500 mg In 100 ml @ 100 mls/hr IVPB Q8HR [facility] Rx# :[id number] Zosyn 3.375 GM In 0.9 % 100 / 100 Sodium Chloride (Mini-Bag +) 100 ML @ 25 mls/hr IVPB Q8HR [facility] Rx#: [id number] Zosyn 3.375 GM In 100 / 100 Dextrose 5% (Minibag+) 100 ML 100 ML @ 25 mls/hr IVPB Q8HR [facility] Rx#: [id number] KCl 40 MEQ Xylocaine 2 ML 522 / 522 In Dextrose 5% 500 ML @ 130.5 mls/hr IVPB ONCE ONE Rx#:[id number] Oral 0 / 0 0 / 0 600 / 600 Output: Urine 0 / 0 525 / 525 650 / 650 Other: Meal Lunch Percent of Meal Consumed 50% # Bowel Movements 0 0 Weight 56.8 kg Patient Weight 04/19/17 23:59 Weight 56.8 kg - General Appearance General appearance: well-developed, well-nourished EENT: ATNC Neck: supple Respiratory: course breath sounds, rhonchi Cardiology: no edema, regular rate, regular rhythm Gastrointestinal: no tenderness Integumentary: warm and dry Neurologic: alert and oriented x3 Musculoskeletal: no cyanosis Psychiatric: mood/affect appropriate Results - Lab Results 04/19/17 00:04 04/19/17 13:55 Most recent lab results Calcium 8.0 mg/dL (8.6-10.8) L 04/19/17 06:06 Magnesium 1.9 mg/dL (1.6-2.6) 04/19/17 06:06 Urine Sodium 31.0 mEq/L 04/19/17 13:20 Consult Discharge Plan - Plan Referrals: Andre Dodge MD [Primary Care Provider] -
[2017-04-19] MEDS ORDERED: Thiamine (B-1) 100 MG, Folic Acid 1 MG, MVI, adult with vitamin K 10 ML in 0.9 % Sodi... IVPB SCH (18:00)
[2017-04-19] MEDS ORDERED: Beer can PO ONE (20:23)
[2017-04-20 01:10] LABS: Basophils % 0.2 %; Eosinophils # 0.1 K/mcL (0.0-0.6); Eosinophils % 0.2 %; Hematocrit 32.3 % (37.5-50.1); Hemoglobin 11.2 g/dL (12.9-16.9); Lymphocytes # 1.8 K/mcL (0.6-4.6); Lymphocytes % 8.9 %; Mean Corpuscular HGB Conc 34.7 g/dL (31.6-35.5); Mean Corpuscular Volume 92.3 fL (83.0-100.0); Mean Platelet Volume 7.9 fL (9.4-12.4); Monocytes # 2.4 K/mcL (0.0-1.3); Monocytes % 11.8 %; Platelet Count 398 K/mcL (140-400); Red Cell Distribution Width 12.7 % (11.5-14.5); Segmented Neutrophils % 77.9 %
[2017-04-20 01:22] LABS: BUN/Creatinine Ratio 6 (6-26); Carbon Dioxide 23 mEq/L (19-29); Chloride 92 mEq/L (98-109); Glucose 118 mg/dL (70-99); Magnesium 1.2 mg/dL (1.6-2.6); Osmolality,Calculated 254 (280-300); Phosphorous 2.6 mg/dL (2.3-4.7); Sodium 123 mEq/L (136-145); eGFR For African Americans > 60 (> 60); eGFR For Non-African Americans > 60 (> 60)
[2017-04-20 01:23] LABS: Blood Urea Nitrogen 3 mg/dL (8-26)
[2017-04-20 01:42] LABS: Thyroid Stimulating Hormone 2.626 mcIU/mL (0.350-4.840)
[2017-04-20] MEDS: Piperacillin/Tazobactam 3.375 GM in 0.9 % Sodium Chloride Mini Bag 100 ML IVPB SCH ×4 (01:54→17:50)
[2017-04-20] MEDS: Ipratropium/Albuterol Neb 3 ML IH SCH ×6 (04:15→23:48)
[2017-04-20] MEDS: *HR* Heparin 5,000 UNIT/ML VIAL SQ SCH ×2 (05:15→17:46)
[2017-04-20] MEDS: 0.9 % Sodium Chloride 1,000 ML IVC SCH ×3 (06:33→13:30)
[2017-04-20] MEDS ORDERED: Potassium Chloride 40 MEQ, Lidocaine 1% 2 ML in D5% in Water 500 ML IVPB ONE (07:40)
[2017-04-20 08:14] LABS: Basophils % 0.1 %; Hematocrit 33.1 % (37.5-50.1); Hemoglobin 11.4 g/dL (12.9-16.9); Lymphocytes # 1.5 K/mcL (0.6-4.6); Lymphocytes % 8.3 %; Mean Corpuscular HGB Conc 34.4 g/dL (31.6-35.5); Mean Corpuscular Hemoglobin 31.8 pg (28.0-33.3); Mean Corpuscular Volume 92.2 fL (83.0-100.0); Monocytes # 2.2 K/mcL (0.0-1.3); Monocytes % 12.4 %; Neutrophils # 13.9 K/mcL (1.6-8.9); Platelet Count 433 K/mcL (140-400); Red Blood Count 3.59 M/mcL (4.19-5.50); Red Cell Distribution Width 12.6 % (11.5-14.5); Segmented Neutrophils % 78.2 %
[2017-04-20 08:22] LABS: BUN/Creatinine Ratio 6 (6-26); Calcium 7.9 mg/dL (8.6-10.8); Carbon Dioxide 23 mEq/L (19-29); Chloride 93 mEq/L (98-109); Glucose 114 mg/dL (70-99); Magnesium 1.4 mg/dL (1.6-2.6); Osmolality,Calculated 257 (280-300); Phosphorous 2.7 mg/dL (2.3-4.7); Potassium 3.1 mEq/L (3.5-4.5); Sodium 125 mEq/L (136-145); eGFR For African Americans > 60 (> 60); eGFR For Non-African Americans > 60 (> 60)
[2017-04-20 08:23] LABS: Blood Urea Nitrogen 3 mg/dL (8-26)
[2017-04-20] MEDS: Magnesium Sulfate 2 GM in D5% in Water 100 ML IVPB SCH ×2 (08:39→09:54)
[2017-04-20] MEDS: Folic Acid 1 MG TABLET PO SCH (08:40)
[2017-04-20] MEDS: Thiamine (B-1) 100 MG TABLET PO SCH (08:40)
[2017-04-20] MEDS: Nicotine 21 MG PATCH.TD24 TD SCH (08:41)
--- NOTE | 2017-04-20 09:36 | Event Note ---
Date of Encounter: 04/20/17 Time of Encounter: 09:35 I met with the patient and his at bedside. Introduce myself and explained that a bronchoscopy is recommended. The procedure , risks, benefits, complications, and expected outcomes have been reviewed. Benefits of diagnosis, as well as risks to include bleeding, infection, pneumothorax which may require surgical intervention, and in a small population. The patient is aware that sometimes test is nondiagnostic. Discussed with patient and agrees to proceed. Patient has been nothing by mouth since midnight
[2017-04-20] MEDS ORDERED: Tetracaine/Benzocaine/Butamben 200MG/SPRAY (100SPY/BOT) MM ONE ×2 (09:37→12:09)
[2017-04-20] MEDS ORDERED: *HR* EPINEPHrine 1 MG/10 ML SYRINGE INTRATRACH PRN (09:37)
--- NOTE | 2017-04-20 09:37 | Pre-Sedation Evaluation ---
Pre-sedation evaluation - Pre-sedation checklist Date of procedure: 04/20/17 Procedure: Bronchoscopy Recent Vitals: Last Vital Signs Temp 99.3 F 04/20/17 07:20 Pulse 97 04/20/17 07:20 Resp 19 04/20/17 07:20 BP 139/70 04/20/17 07:20 Pulse Ox 95 04/20/17 07:20 H&P (including ROS) documented in medical record: Yes Previous reaction to sedatives/anesthetics: No Dietary Status: NPO after Midnight Airway Assessment: Patient can open mouth completely, TMJ function normal Dentition: poor dentition Possible difficult airway: No ASA Classification *see protocol: CLASS III-Severe systemic disease Plan of Care: Pt appropriate candidate for procedure/moderate/conscious sedation , Risks/benefits of procedure/sedation discussed w/ patient/family
[2017-04-20] MEDS: Albuterol 2.5 MG/3 ML NEBULIZER IH ONE ×2 (10:20→12:07)
[2017-04-20] MEDS ORDERED: *HR* FentaNYL (PF) 100 MCG/2 ML VIAL ONE (11:24)
[2017-04-20] MEDS ORDERED: *HR* Midazolam HCl 5 MG/5 ML VIAL IVP ONE (11:24)
[2017-04-20] MEDS: *HR* Midazolam HCl 5 MG/5 ML VIAL IVP PRN ×2 (11:53→11:56)
[2017-04-20] MEDS: *HR* FentaNYL (PF) 100 MCG/2 ML VIAL IVP PRN ×2 (11:53→11:56)
[2017-04-20] MEDS ORDERED: Albuterol 2.5 MG/3 ML NEBULIZER IH ONE (12:06)
[2017-04-20] MEDS ORDERED: Albuterol 2.5 MG/3 ML NEBULIZER IH PRN (12:26)
--- NOTE | 2017-04-20 14:29 | Internal Med Progress Note ---
Date of Encounter: 04/20/17 Time of Encounter: 14:28 - Assessment and plan (1) Pneumonia Current Visit: Yes Status: Acute Assessment and plan: will continue IV abx with Vancomycin and Zosyn follow up blood cultures O2 supplementation closely monitor respiratory status Qualifiers: Pneumonia type: due to unspecified organism Laterality: right Lung location: upper lobe of lung Qualified Code(s): J18.1 - Lobar pneumonia, unspecified organism (2) Mass of right lung Current Visit: Yes Status: Suspected Assessment and plan: Pulmonary evaluation appreciated s/p bronchoscopy which noted an exophytic and fungating mass in the right upper lobe likely malignant Will follow up pathology report will consult oncology given high clinical suspicion of malignancy continue IV abx as listed above bronchodilator support (3) Hypokalemia Current Visit: Yes Status: Acute Assessment and plan: K supplemented continue to monitor electrolytes and replace as needed (4) Hyponatremia Current Visit: Yes Status: Chronic Assessment and plan: likely secondary to alcohol abuse and SIADH given lung mass, and volume depletion Pt responding well to fluid challenge will continue to closely monitor Na levels nephrology on board and consultation appreciated do no correct Na more than 6-8Meq in 24 hours. (5) Alcoholism Current Visit: Yes Status: Chronic Assessment and plan: closely monitoring for alcohol withdrawal symptoms continue CIWA protocol Ativan prn as per CIWA protocol Thiamine, Folate supplementation Despite patient's CIWA scoring, patient is refusing ativan and wanting only beer. Patient and his family are very adamant about continuing with Beer while he is hospitalized patient adamantly refusing help and states he is going to continue to drink after being discharged so he does not want to go through detox while he is hospitalized. (6) DVT prophylaxis Current Visit: Yes Status: Acute Assessment and plan: Heparin SQ (7) Tobacco abuse Current Visit: Yes Status: Chronic Assessment and plan: nicotine supplementation provided (8) Emphysema of lung Current Visit: Yes Status: Chronic Qualifiers: Emphysema type: centrilobular Qualified Code(s): J43.2 - Centrilobular emphysema (9) Hypomagnesemia Current Visit: Yes Status: Acute Assessment and plan: Mg supplemented continue to monitor electrolytes and replace as needed. - Subjective Interval history: Patient seen and examined with family present at bedside. Patient denies any sob at this time. Patient is s/p bronchoscopy for lung mass today. Tolerated procedure well and denies any discomfort at this time. - Constitutional Vitals: Temp Pulse Resp BP Pulse Ox 99.3 F 82 18 113/60 98 04/20/17 07:20 04/20/17 12:10 04/20/17 12:10 04/20/17 12:10 04/20/17 12:10 General appearance: Present: cachectic, A&O X 3, no acute distress, underweight , answers questions appropriately - Head Head exam: Present: atraumatic, normocephalic - Eye Eye exam: Present: conjuntiva pink, sclera anicteric - Respiratory Respiratory exam: Present: decreased breath sounds. Absent: respiratory distress, wheezes - Cardiovascular Cardiovascular exam: Present: RRR, +S1, +S2. Absent: diastolic murmur, gallop, rubs, systolic murmur - GI/Abdominal GI/Abdominal exam: Present: normal bowel sounds, soft, no peritoneal signs. Absent: distended, tenderness - Extremities Exam Extremities exam: Present: warm, radial pulses palpable and symmetrical. Absent : calf tenderness - Neurological Exam Neurological exam: Present: alert, oriented X3 - Psychiatric Psychiatric exam: Present: normal affect, normal mood Internal Medicine: Result - Labs CBC & Chem 7: 04/20/17 07:04 04/20/17 12:55 Labs: Short CBC 04/20/17 04/20/17 Range/Units 00:49 07:04 WBC 20.5 H 17.8 H (4.3-11.1) K/mcL Hgb 11.2 L 11.4 L (12.9-16.9) g/dL Hct 32.3 L 33.1 L (37.5-50.1) % Plt Count 398 433 H (140-400) K/mcL Neutrophils # 16.0 H 13.9 H (1.6-8.9) K/mcL BMP 04/19/17 04/19/17 04/19/17 13:55 16:16 20:06 Sodium 122 L 123 L 121 L Potassium Chloride Carbon Dioxide BUN Creatinine Glucose Calcium 04/20/17 04/20/17 04/20/17 00:49 00:49 00:49 Sodium 126 L 123 L 125 L Potassium 3.0 L 3.1 L Chloride 92 L 93 L Carbon Dioxide 23 23 BUN 3 L 3 L Creatinine 0.53 L 0.52 L Glucose 118 H 114 H Calcium 8.0 L 7.9 L 04/20/17 04/20/17 07:04 12:55 Sodium 127 L 128 L Potassium Chloride Carbon Dioxide BUN Creatinine Glucose Calcium - ABG Interpretation ABG results: PT/INR, D-dimer PT 12.0 Seconds (9.4-12.1) 04/18/17 16:10 Consult Discharge Plan - Plan Referrals: Andre Dodge MD [Primary Care Provider] -
[2017-04-20] MEDS ORDERED: Beer can PO PRN (14:36)
[2017-04-20] MEDS: Vancomycin 1,500 MG in D5% in Water 250 ML IVPB SCH (15:24)
--- NOTE | 2017-04-20 17:10 | Oncology Inp Consult Note ---
Date of Encounter: 04/20/17 Time of Encounter: 17:00 Assessment and Plan (1) Mass of right lung Status: Suspected Assessment and plan: Mr. Barfield is a chronically ill but pleasant 62-year-old gentleman with fine medical problems 1. 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 Biopsy and pathology are currently pending. My personal review of his imaging, I do not see any evidence of distant metastatic disease. 2. Severe emphysema with blebs on CT imaging 3. History of alcoholism Plan: I met with Mr. Barfield, his son and his were in his room today. I reviewed his imaging the bronchoscopy report. I agree, this is a malignant process. We discussed the need for staging studies. I will go ahead and proceed with MRI with and without IV contrast given his dizziness. We will plan for outpatient PET CT imaging. If he has been found to have localized disease, we will give credence to surgical as opposed to definitive concurrent chemoradiotherapy. Surprisingly, he has lack of pulmonary symptoms at baseline but his CT shows severe emphysema. I do not know if he will be a surgical candidate,and pulmonary function testing will have to be obtained once we optimize his pulmonary status. Please proceed with interventional bronchoscopy tomorrow in an attempt to open this right upper lobe. If EBUS and staging can be performed at the same time, it would be welcome as well. We will do to follow along. Please do not hesitate to call the concerns or questions. [phone] - Data of Consult Requesting Physician: Samantha Huffman MD Primary Care Provider: Andre Dodge MD - Consult Narrative Reason for consult: New lung cancer History of present illness: Mr. Barfield is a 62 year old male who has been his normal state of health up until about 1-2 weeks ago. He started to get dizzy having issues with balance and in general became more weak. His states these had some diarrhea that she initially contributed to the symptoms. Surprisingly, the states easily lost 5 pounds in weight over the past 3 months or so. The patient states he is not more short when the weight in the past. He does cough but not much more than what he has no past. Sputum is productive of white sputum. No purulence or hemoptysis. He has been placed on empiric Zosyn and vancomycin. Secondary to the symptoms, he presented emergency department where a CT scan of chest revealed extensive consolidation of the right upper lobe of the lung. Bronchoscopy today revealed a nearly obstructing fungating mass in the right upper lobe bronchus. Biopsy was obtained and concerning for malignancy. Pathology is currently pending. Per the family, bronchoscopy with potential intervention to open this airway is planned for tomorrow. Currently, the patient is chilling in the bed. He denies any pain currently. He denies any fever currently. He is very fatigued and tired. Most of the history is provided by his . Past Med Surg Social Fam HX - Past Medical History Medical history: hypertension Psychiatric history: no psych history - Past Surgical History Surgical History: no surgical history - Social History Smoking Status: Current every day smoker Packs per day: 1 Smokeless Tobacco Status: No Alcohol use: occasionally Drug use: none - Family History Father Hx Family Cardiac Disorders: Yes Mother Living Status: Still Living Hx Family Respiratory Disorders: Yes Medications and Allergies Amlodipine Besylate [Amlodipine Besylate] 10 mg PO DAILY 04/19/17 [History] Metoprolol Succinate 100 mg PO DAILY 04/19/17 [History] 3 Allergy/AdvReac Type Severity Reaction Status Date / Time losartan [From Cozaar] Allergy See Verified 04/19/17 13:17 Comments All systems: reviewed and no additional remarkable complaints except as stated Constitutional: Present: fatigue, weakness, weight loss Eyes: Present: as per HPI Cardiovascular: Present: as per HPI Respiratory: Present: dyspnea on exertion Gastrointestinal: Present: as per HPI Genitourinary: as per HPI Musculoskeletal: Present: as per HPI Neurological: Present: dizziness Oncology - Exam - Constitutional Vitals: Temp Pulse Resp BP Pulse Ox 99.3 F 82 18 113/60 98 04/20/17 07:20 04/20/17 12:10 04/20/17 12:10 04/20/17 12:10 04/20/17 12:10 - Head Head exam: Present: atraumatic, normal inspection, normocephalic - Eye Eye exam: Present: normal appearance, conjuntiva pink, sclera anicteric - ENT ENT exam: Present: mucous membranes dry, normal exam, normal external ear exam, normal oropharynx - Neck Neck exam: Present: full ROM, normal inspection - Respiratory Respiratory exam: Present: decreased breath sounds - Cardiovascular Cardiovascular exam: Present: tachycardia - GI/Abdominal GI/Abdominal exam: Present: normal bowel sounds, soft - Extremities Exam Extremities exam: Present: normal inspection - Neurological Exam Neurological exam: Present: alert, CN II-XII intact, oriented X3 Oncology - Results Labs: Short CBC 04/20/17 04/20/17 Range/Units 00:49 07:04 WBC 20.5 H 17.8 H (4.3-11.1) K/mcL Hgb 11.2 L 11.4 L (12.9-16.9) g/dL Hct 32.3 L 33.1 L (37.5-50.1) % Plt Count 398 433 H (140-400) K/mcL Neutrophils # 16.0 H 13.9 H (1.6-8.9) K/mcL BMP 04/19/17 04/19/17 04/20/17 16:16 20:06 00:49 Sodium 123 L 121 L 126 L Potassium Chloride Carbon Dioxide BUN Creatinine Glucose Calcium 04/20/17 04/20/17 04/20/17 00:49 00:49 07:04 Sodium 123 L 125 L 127 L Potassium 3.0 L 3.1 L Chloride 92 L 93 L Carbon Dioxide 23 23 BUN 3 L 3 L Creatinine 0.53 L 0.52 L Glucose 118 H 114 H Calcium 8.0 L 7.9 L 04/20/17 12:55 Sodium 128 L Potassium Chloride Carbon Dioxide BUN Creatinine Glucose Calcium CTA OF THE CHEST 04/18/2017 4:14 pm FINDINGS: Pulmonary Arteries: Pulmonary arteries are adequately opacified for evaluation. No evidence of intraluminal filling defect to suggest pulmonary embolism. Main pulmonary artery is normal in caliber. Mediastinum: No evidence of mediastinal lymphadenopathy. The heart and pericardium demonstrate no acute abnormality. There is no acute abnormality of the thoracic aorta. Lungs/pleura: There is masslike consolidation seen within the right upper lobe, with areas of bronchiectasis and/or necrosis. Mild patchy consolidation is noted within the right lower lobe and to a lesser extent within the right middle lobe. Focal nodular consolidation within the left lobe is also seen on image number 28. The airways in the right upper lobe are obliterated. The bronchus intermedius, right middle lobe, right lower lobe airways are patent. There is a background of severe emphysema. Upper Abdomen: There is adreniform enlargement of both adrenal glands, although focal adrenal lesions are not detected. Small amount of the ascites is noted within the upper abdomen. Soft Tissues/Bones: No osteolytic or osteoblastic bone lesions are identified. All CT/CT angio chest IMPRESSION: 1. Extremely dense consolidation within the right upper lobe, with obliteration of the airways. Although pneumonia with necrosis is considered, this is concerning for a central mass with postobstructive consolidation in the remainder of the right upper lung. At this point, it is not possible to differentiate necrotic lung parenchyma from a mass. 2. There is no evidence of pulmonary embolism. 3. There is patchy consolidation noted within the remaining lung. 4. Severe emphysema. Consult Discharge Plan - Plan Referrals: Andre Dodge MD [Primary Care Provider] -
--- NOTE | 2017-04-20 21:48 | Electrocardiograph Report ---
[address] [address] Test Date: 2017-04-18 Pat Name: Abelardo Barfield Department: 105 Room: 3A33 Gender: M Data Capture Clerk: GRETCHEN : 1955 Requested By: [place] Order Number: [id number] Reading MD: Florian Junior MD Measurements Intervals [place] Rate: 77 P: 74 [place]: 188 QRS: 54 QRSD: 90 T: 66 QT: 406 QTc: 438 Interpretive Statements SINUS RHYTHM Electronically Signed On 04-20-2017 21:46:12 EDT by Florian Junior MD
[2017-04-20] MEDS: Aspirin 325 MG TABLET PO SCH (23:03)
--- NOTE | 2017-04-20 23:08 | Event Note ---
Date of Encounter: 04/20/17 Time of Encounter: 22:40 Called by RN regarding MRI of the brain. Patient has been admitted for pneumonia and mass of the right lung. Patient has undergone bronchoscopy and a endobronchial biopsy was performed. Oncology has evaluated the patient. MRI of the brain was ordered for dizziness and lightheadedness. Symptoms seem to have started about 1-2 weeks ago. 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 Predominantly the right cerebellar hemisphere is affected. Right and left occipital and left optic radiation also affected. No mass effect and no hemorrhage. Aspirin 325 mg and Lipitor given stat. On examination patient is awake and alert. Not in any distress. He is able to verbalize well and follows verbal commands well. On neurological exam patient does not have any focal neurological deficits. Cranial nerves are intact. He has normal strength in all 4 extremities. 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 No pronator drift. No other acute signs or symptoms at this time. I discussed with Dr. Andres, neurology. He is advised to continue Aspirin and statin. Also advised to get a CTA of head and neck and monitor for atrial fibrillation or other arrhythmias. Since patient is asymptomatic at present and his symptoms of dizziness started about 1 week ago, he likely has a subacute infarct. Continue cardiac telemetry, monitor closely.
[2017-04-21 02:18] LABS: Basophils # 0.1 K/mcL (0.0-0.2); Basophils % 0.3 %; Eosinophils % 0.3 %; Hematocrit 36.5 % (37.5-50.1); Hemoglobin 12.6 g/dL (12.9-16.9); Immature Granulocytes % 0.9 % (0-4); Lymphocytes # 1.8 K/mcL (0.6-4.6); Lymphocytes % 11.4 %; Mean Corpuscular HGB Conc 34.5 g/dL (31.6-35.5); Mean Corpuscular Hemoglobin 31.9 pg (28.0-33.3); Mean Corpuscular Volume 92.4 fL (83.0-100.0); Mean Platelet Volume 8.1 fL (9.4-12.4); Monocytes % 12.6 %; Neutrophils # 11.7 K/mcL (1.6-8.9); Platelet Count 451 K/mcL (140-400); Red Blood Count 3.95 M/mcL (4.19-5.50); Red Cell Distribution Width 12.6 % (11.5-14.5); Segmented Neutrophils % 74.5 %
[2017-04-21 02:33] LABS: BUN/Creatinine Ratio 5 (6-26); Calcium 8.4 mg/dL (8.6-10.8); Carbon Dioxide 28 mEq/L (19-29); Chloride 93 mEq/L (98-109); Glucose 91 mg/dL (70-99); Magnesium 1.7 mg/dL (1.6-2.6); Osmolality,Calculated 264 (280-300); Phosphorous 3.3 mg/dL (2.3-4.7); Potassium 3.2 mEq/L (3.5-4.5); Sodium 129 mEq/L (136-145); eGFR For African Americans > 60 (> 60); eGFR For Non-African Americans > 60 (> 60)
[2017-04-21 02:34] LABS: Blood Urea Nitrogen 3 mg/dL (8-26)
[2017-04-21] MEDS: Vancomycin 1,500 MG in D5% in Water 250 ML IVPB SCH ×2 (02:36→15:29)
[2017-04-21] MEDS: Piperacillin/Tazobactam 3.375 GM in 0.9 % Sodium Chloride Mini Bag 100 ML IVPB SCH ×2 (02:37→11:21)
[2017-04-21] MEDS: Ipratropium/Albuterol Neb 3 ML IH SCH ×4 (03:27→16:20)
[2017-04-21] MEDS: *HR* Heparin 5,000 UNIT/ML VIAL SQ SCH ×2 (05:47→18:15)
[2017-04-21] MEDS: 0.9 % Sodium Chloride 1,000 ML IVC SCH (07:54)
--- NOTE | 2017-04-21 09:05 | Pulmonology Progress Note ---
Date of Encounter: 04/21/17 Time of Encounter: 09:05 Assessment and Plan (1) Mass of right lung Current Visit: Yes Status: Suspected This was bronchoscopy with endobronchial biopsies of an obstructing lesion in the right upper lobe concerning for primary lung carcinoma. Final path results pending. 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 I was very candid with them and I said that if he continues to consume alcohol is unwilling to stop the treatment options ECG surgery or chemotherapy would be limited with his poor overall health nutrition status along with chronic hyponatremia. As such I recommend further addressing this issue before additional interventional pulmonary procedures are planned. I will follow up on the final pathology from the endobronchial biopsies until that time would defer continued management to the primary medicine service who live updated (Dr Bridges) (5) DVT prophylaxis Current Visit: Yes Status: Acute (6) Tobacco abuse counseling Current Visit: Yes Status: Acute I counseled the patient to remain tobacco free nicotine replacement as needed Subjective Principal diagnosis: Pneumonia Interval history: Status post bronchoscopy without any untoward effects. [place] like he was having I will call withdrawal yesterday and was prescribed ethanol in form of can of beer in the room related that time he told the nursing staff that he was unwilling to stop drinking and so it was determined that this course of action was to provide him with alcohol while inpatient. Objective PUL Vital signs: Last Vital Signs Temp 98.3 F 04/21/17 07:09 Pulse 85 04/21/17 07:09 Resp 17 04/21/17 07:09 BP 138/64 04/21/17 07:09 Pulse Ox 95 04/21/17 07:09 General appearance: no acute distress, other (Frail appearing) ENT: oropharynx dry Auscultation: right: diminished breath sounds Cardiovascular: regular rate and rhythm Gastrointestinal: normoactive bowel sounds non-focal exam other (Generally flat affect) Results - Laboratory Findings CBC and BMP: 04/21/17 01:17 04/21/17 06:58 PT/INR, D-dimer PT 12.0 Seconds (9.4-12.1) 04/18/17 16:10 Abnormal lab findings: Abnormal lab results WBC 15.7 K/mcL (4.3-11.1) H 04/21/17 01:17 RBC 3.95 M/mcL (4.19-5.50) L 04/21/17 01:17 Hgb 12.6 g/dL (12.9-16.9) L 04/21/17 01:17 Hct 36.5 % (37.5-50.1) L 04/21/17 01:17 Plt Count 451 K/mcL (140-400) H 04/21/17 01:17 MPV 8.1 fL (9.4-12.4) L 04/21/17 01:17 Neutrophils # 11.7 K/mcL (1.6-8.9) H 04/21/17 01:17 Monocytes # 2.0 K/mcL (0.0-1.3) H 04/21/17 01:17 Sodium 131 mEq/L (136-145) L 04/21/17 06:58 Potassium 3.2 mEq/L (3.5-4.5) L 04/21/17 01:17 Chloride 93 mEq/L (98-109) L 04/21/17 01:17 BUN 3 mg/dL (8-26) L 04/21/17 01:17 Creatinine 0.64 mg/dL (0.72-1.25) L 04/21/17 01:17 BUN/Creatinine Ratio 5 (6-26) L 04/21/17 01:17 POC Glucose 120 (58-89) H 04/21/17 05:40 Serum Osmolality 254 mOsm/kg (280-300) L 04/20/17 00:49 Calculated Osmolality 264 (280-300) L 04/21/17 01:17 Calcium 8.4 mg/dL (8.6-10.8) L 04/21/17 01:17 B-Natriuretic Peptide 119 pg/mL (0-100) H 04/18/17 16:10 Serum Total Protein 5.7 g/dL (6.0-8.3) L D 04/19/17 06:06 Albumin 1.8 g/dL (3.5-5.0) L 04/19/17 06:06 Globulin 3.9 g/dL (2.4-3.5) H 04/19/17 06:06 Albumin/Globulin Ratio 0.5 (1.1-2.2) L 04/19/17 06:06 Urine Osmolality 231 mOsm/kg (300-1090) L 04/20/17 Unknown Vancomycin Trough 9.5 mcg/mL (10-20) L 04/20/17 12:55 - Microbiology Findings Microbiology Findings: Microbiology, Last 48 Hours 04/19/17 07:25 Sputum Culture - Final Sputum - Clinical Findings Intake & Output: Intake & Output 04/20/17 04/21/17 04/21/17 23:59 07:59 15:59 Intake Total 590 / 590 350 / 350 Output Total 0 / 0 1225 / 1225 Balance 590 / 590 -875 / -875 Weight 55.8 kg Consult Discharge Plan - Plan Referrals: Andre Dodge MD [Primary Care Provider] -
[2017-04-21] MEDS: Thiamine (B-1) 100 MG TABLET PO SCH (09:28)
[2017-04-21] MEDS: Nicotine 21 MG PATCH.TD24 TD SCH (09:28)
[2017-04-21] MEDS: Aspirin 325 MG TABLET PO SCH (09:28)
[2017-04-21] MEDS: Folic Acid 1 MG TABLET PO SCH (09:28)
--- NOTE | 2017-04-21 13:36 | Neurology - Consult Note ---
Date of Encounter: 04/21/17 Time of Encounter: 08:30 Assessment and Plan (1) Posterior circulation stroke Current Visit: Yes Status: Acute This patient who is having some dizziness lightheadedness and generalized weakness at the same time recent diagnosis of anemia and possibility of lung cancer as well as a history of tobacco and alcohol use, noted to have a posterior circulation stroke on his MRI scan. CT angiogram of the neck did not show any critical stenosis in any of the vasculature of the brain and neck. Other possibility if could be of embolic source from the heart for that reason he will need an echocardiogram. At the same kind is a possibility that it could be due to increased thrombotic tendency from underlying cancer. Also need to monitor him for any atrial fibrillation or arrhythmias at could be the source for his stroke. At this time suggest that we should keep him on an antiplatelet therapy continue to monitor his blood pressure blood sugar as well as for any arrhythmias. Oncology service has already seen the patient perhaps may need to do thrombotic tendency profile as well. As he did not have any significant neurological deficit on examination do not think that he would require any physical therapy at this time though for his dizziness and difficulty with a gait and balance and generalized weakness he may need some short-term rehabilitation (2) Alcoholism Current Visit: Yes Status: Chronic (3) Mass of right lung Current Visit: Yes Status: Suspected History of Present Illness HPI: Mr. Barfield is a 62 year old male who has been admitted a few days ago because of dizziness difficulties of balance and weakness and during the workup he was found to have a consolidation of the right upper lobe of the lung with the consent of primary lung cancer , his workup is in progress as he was also complaining of some dizziness and difficulty with the gait and balance MRI of the brain was ordered which revealed posterior circulation infarct. Besides the dizziness and lightheadedness patient denies any focal motor weakness denies any headaches denies any other sensory symptoms. He has been started on aspirin and statin and remained stable . as per history he was in his normal state of health up until about 1-2 weeks ago. He started to get dizzy having issues with balance and in general became more weak. His states these had some diarrhea that she initially contributed to the symptoms. Surprisingly, the states easily lost 5 pounds in weight over the past 3 months or so. because of these symptoms, he presented emergency department where a CT scan of chest revealed extensive consolidation of the right upper lobe of the lung. Bronchoscopy revealed a nearly obstructing fungating mass in the right upper lobe bronchus. Currently, the patient denies any headaches or focal weakness, He is very fatigued and tired. Mri of Brain last night showed multiple infarcts in cerebellum and post occipital area. he also had STAT CTA of neck that didt show any focal stenosis thought its a limited study Past Med Surg Social Fam HX - Past Medical History Medical history: hypertension Psychiatric history: no psych history - Past Surgical History Surgical History: no surgical history - Social History Smoking Status: Current every day smoker Packs per day: 1 Smokeless Tobacco Status: No Alcohol use: occasionally Drug use: none - Family History Father Hx Family Cardiac Disorders: Yes Mother Living Status: Still Living Hx Family Respiratory Disorders: Yes Medications and Allergies Amlodipine Besylate [Amlodipine Besylate] 10 mg PO DAILY 04/19/17 [History] Metoprolol Succinate 100 mg PO DAILY 04/19/17 [History] 3 Allergy/AdvReac Type Severity Reaction Status Date / Time losartan [From Cozaar] Allergy See Verified 04/19/17 13:17 Comments All Systems: A 10-system review of systems was performed and is negative for pertinent findings except as documented above in the HPI. Physical Examination - Vital Signs Vital Signs: Initial Vital Signs Temp Pulse Resp BP Pulse Ox 97.6 F 83 18 115/67 97 04/18/17 15:50 04/18/17 15:50 04/18/17 15:50 04/18/17 15:50 04/18/17 15:50 - Constitutional General appearance: comfortable - Neurologic Sensorimotor examination: intact Detailed motor examination: grossly full strength in all extremities Detailed sensory examination: intact Reflexes: Biceps: 1+, Triceps: 1+, Brachioradialis: 1+, Patella: 1+, Achilles: 1 + Mental Status Examination: awake, alert, oriented to person, oriented to place, oriented to time, follows commands appropriately, answers questions appropriately, no agnosia, no aphasia, no aproxia Cranial nerve examination: PERRL, EOMI, visual padgett intact, corneal reflexes brisk symmetrically, sensory to face intact, mastication intact, no facial asymmetry is present, no dysarthria, hearing is intact symmetrically, soft palate elevates bilaterally upon phonation, gag reflex intact, flexes SCM and trapezius muscles symmetrically with full power, tongue protrudes midline Cerebellar examination: no dysmetria Results - Laboratory Findings CBC and BMP: 04/21/17 01:17 04/21/17 06:58 Abnormal lab findings: Abnormal lab results WBC 15.7 K/mcL (4.3-11.1) H 04/21/17 01:17 RBC 3.95 M/mcL (4.19-5.50) L 04/21/17 01:17 Hgb 12.6 g/dL (12.9-16.9) L 04/21/17 01:17 Hct 36.5 % (37.5-50.1) L 04/21/17 01:17 Plt Count 451 K/mcL (140-400) H 04/21/17 01:17 MPV 8.1 fL (9.4-12.4) L 04/21/17 01:17 Neutrophils # 11.7 K/mcL (1.6-8.9) H 04/21/17 01:17 Monocytes # 2.0 K/mcL (0.0-1.3) H 04/21/17 01:17 Sodium 131 mEq/L (136-145) L 04/21/17 06:58 Potassium 3.2 mEq/L (3.5-4.5) L 04/21/17 01:17 Chloride 93 mEq/L (98-109) L 04/21/17 01:17 BUN 3 mg/dL (8-26) L 04/21/17 01:17 Creatinine 0.64 mg/dL (0.72-1.25) L 04/21/17 01:17 BUN/Creatinine Ratio 5 (6-26) L 04/21/17 01:17 POC Glucose 120 (58-89) H 04/21/17 05:40 Serum Osmolality 254 mOsm/kg (280-300) L 04/20/17 00:49 Calculated Osmolality 264 (280-300) L 04/21/17 01:17 Calcium 8.4 mg/dL (8.6-10.8) L 04/21/17 01:17 B-Natriuretic Peptide 119 pg/mL (0-100) H 04/18/17 16:10 Serum Total Protein 5.7 g/dL (6.0-8.3) L D 04/19/17 06:06 Albumin 1.8 g/dL (3.5-5.0) L 04/19/17 06:06 Globulin 3.9 g/dL (2.4-3.5) H 04/19/17 06:06 Albumin/Globulin Ratio 0.5 (1.1-2.2) L 04/19/17 06:06 Urine Osmolality 231 mOsm/kg (300-1090) L 04/20/17 Unknown Vancomycin Trough 9.5 mcg/mL (10-20) L 04/20/17 12:55 Consult Discharge Plan - Plan Referrals: Andre Dodge MD [Primary Care Provider] -
--- NOTE | 2017-04-21 16:06 | Internal Med Progress Note ---
Date of Encounter: 04/21/17 Time of Encounter: 11:50 - Assessment and plan (1) Pneumonia Current Visit: Yes Status: Acute Assessment and plan: Postobstructive pneumonia. Improving leukocytosis. Will transition to oral antibiotics. Monitor vital signs. High risk for complications. Qualifiers: Pneumonia type: due to unspecified organism Laterality: right Lung location: upper lobe of lung Qualified Code(s): J18.1 - Lobar pneumonia, unspecified organism (2) Mass of right lung Current Visit: Yes Status: Suspected Assessment and plan: Status post bronchoscopy and biopsy. Awaiting pathology results. Oncology consult appreciated. MRI of the head did not show any metastatic lesions. (3) Posterior circulation stroke Current Visit: Yes Status: Acute Assessment and plan: Acute/subacute stroke. Patient reported an episode of dizziness and fall on Thursday. most likely had stroke at that time. Neurology consult appreciated. Continue aspirin and statin. Physical therapy consultation. On telemetry. No abnormal rhythms identified. CT angiogram shows no significant stenotic lesions. 2-D echocardiogram ordered and pending. (4) Alcoholism Current Visit: Yes Status: Chronic Assessment and plan: Patient wishes to quit drinking alcohol. At high risk for alcohol withdrawal. Continue monitoring per [place] protocol. We will stop beer. (5) Emphysema of lung Current Visit: Yes Status: Chronic Assessment and plan: Chronic. Bronchodilators as needed Qualifiers: Emphysema type: centrilobular Qualified Code(s): J43.2 - Centrilobular emphysema (6) Hypokalemia Current Visit: Yes Status: Acute Assessment and plan: Potassium level is 3.2. We will continue oral replacement therapy. (7) Hypomagnesemia Current Visit: Yes Status: Acute Assessment and plan: Improved. (8) Hyponatremia Current Visit: Yes Status: Chronic Assessment and plan: Improved. Sodium 132 today. (9) Tobacco abuse Current Visit: Yes Status: Chronic - Subjective Interval history: Patient is awake and alert. No complaints at this time. Not having any anxiety or tremors at this time. Wishes to quit drinking alcohol. Was scheduled to undergo bronchoscopy again today but procedure has been postponed for now. No shortness of breath. No fever reported overnight. - Constitutional Vitals: Temp Pulse Resp BP Pulse Ox 97.4 F L 86 16 146/73 96 04/21/17 15:41 04/21/17 15:41 04/21/17 15:41 04/21/17 15:41 04/21/17 15:41 General appearance: Present: cachectic, A&O X 3, no acute distress, underweight , answers questions appropriately - Neck Neck exam general surgery: Present: supple, trachea midline. Absent: lymphadenopathy - Respiratory Respiratory exam: Present: decreased breath sounds (Right lung). Absent: accessory muscle use, rales, rhonchi, wheezes - Cardiovascular Cardiovascular exam: Present: RRR, +S1, +S2. Absent: diastolic murmur, gallop, rubs, systolic murmur - GI/Abdominal GI/Abdominal exam: Present: normal bowel sounds, soft, no peritoneal signs. Absent: distended, tenderness - Extremities Exam Extremities exam: Present: warm, radial pulses palpable and symmetrical. Absent : calf tenderness, cyanotic, pedal edema - Neurological Exam Neurological exam: Present: alert, oriented X3, no focal deficits. Absent: facial droop, speech deficit - Skin Skin exam: Present: dry, intact Internal Medicine: Result - Labs CBC & Chem 7: 04/21/17 01:17 04/21/17 13:12 Labs: Short CBC 04/21/17 Range/Units 01:17 WBC 15.7 H (4.3-11.1) K/mcL Hgb 12.6 L (12.9-16.9) g/dL Hct 36.5 L (37.5-50.1) % Plt Count 451 H (140-400) K/mcL Neutrophils # 11.7 H (1.6-8.9) K/mcL BMP 04/20/17 04/21/17 04/21/17 18:44 01:17 01:17 Sodium 124 L 129 L 128 L Potassium 3.2 L Chloride 93 L Carbon Dioxide 28 BUN 3 L Creatinine 0.64 L Glucose 91 Calcium 8.4 L 04/21/17 04/21/17 06:58 13:12 Sodium 131 L 132 L Potassium Chloride Carbon Dioxide BUN Creatinine Glucose Calcium - ABG Interpretation ABG results: PT/INR, D-dimer PT 12.0 Seconds (9.4-12.1) 04/18/17 16:10 - Impressions Impressions Foreign Body Localization X-Ray 04/20/17 00:00 IMPRESSION: No evidence of metallic foreign body within the orbits. Rounded calcification in the region of the right orbit which may represent calcification of the lens. D/ / Alexandra Ojeda MD / Alexandra Ojeda MD Interpreting Provider: Alexandra Ojeda MD Head MRI 04/20/17 17:17 IMPRESSION: Posterior circulation acute infarct, multifocal. No hemorrhage. Findings were discussed with MANA Pichardo on 04/20/2017 at 10:11 pm who agreed to notify the attending physician immediately. . D/ / Fabricio Jamison MD / Fabricio Jamison MD Interpreting Provider: Fabricio Jamison MD Head CTA 04/21/17 23:03 IMPRESSION: Mildly limited by motion artifact, otherwise unremarkable CTA of the head and neck. D/ / Fabricio Jamison MD / Fabricio Jamison MD Interpreting Provider: Fabricio Jamison MD Neck CTA 04/21/17 23:03 IMPRESSION: Mildly limited by motion artifact, otherwise unremarkable CTA of the head and neck. D/ / Fabricio Jamison MD / Fabricio Jamison MD Interpreting Provider: Fabricio Jamison MD Consult Discharge Plan - Plan Referrals: Andre Dodge MD [Primary Care Provider] -
[2017-04-21] MEDS ORDERED: Ipratropium/Albuterol Neb 3 ML IH PRN (16:09)
[2017-04-21] MEDS ORDERED: Aminoglycoside Consult 1 EACH MC ONE (17:31)
[2017-04-21] MEDS: metroNIDAZOLE 500 MG TABLET PO SCH (20:42)
[2017-04-22] MEDS: *HR* Heparin 5,000 UNIT/ML VIAL SQ SCH ×2 (06:14→18:02)
[2017-04-22 06:43] LABS: Basophils # 0.1 K/mcL (0.0-0.2); Basophils % 0.5 %; Eosinophils # 0.1 K/mcL (0.0-0.6); Eosinophils % 0.9 %; Hematocrit 36.8 % (37.5-50.1); Hemoglobin 12.6 g/dL (12.9-16.9); Lymphocytes # 1.9 K/mcL (0.6-4.6); Lymphocytes % 12.5 %; Mean Corpuscular HGB Conc 34.2 g/dL (31.6-35.5); Mean Corpuscular Hemoglobin 32.4 pg (28.0-33.3); Mean Corpuscular Volume 94.6 fL (83.0-100.0); Mean Platelet Volume 8.3 fL (9.4-12.4); Monocytes # 1.8 K/mcL (0.0-1.3); Monocytes % 11.6 %; Neutrophils # 11.3 K/mcL (1.6-8.9); Platelet Count 446 K/mcL (140-400); Red Blood Count 3.89 M/mcL (4.19-5.50); Segmented Neutrophils % 73.5 %
[2017-04-22 06:50] LABS: BUN/Creatinine Ratio 7 (6-26); Blood Urea Nitrogen 5 mg/dL (8-26); Calcium 8.6 mg/dL (8.6-10.8); Carbon Dioxide 25 mEq/L (19-29); Chloride 93 mEq/L (98-109); Glucose 114 mg/dL (70-99); Osmolality,Calculated 266 (280-300); Potassium 3.2 mEq/L (3.5-4.5); Sodium 129 mEq/L (136-145); eGFR For African Americans > 60 (> 60); eGFR For Non-African Americans > 60 (> 60)
--- NOTE | 2017-04-22 08:03 | Oncology Inp Progress Note ---
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 Pathology are currently pending. My personal review of his imaging, I do not see any evidence of distant metastatic disease. MRI imaging negative for metastasis as well. There is no acute plan for debulking. Continue treating for CAP. Further treatment pending PET/CT and outpatient follow-up. Alcoholism may prove to be problematic with regard to treatment. We will do to follow along. Please do not hesitate to call the concerns or questions. [phone] (2) Alcoholism Current Visit: Yes Status: Chronic Assessment and plan: Per primary team. This is discussion about detox/cessation. (3) Posterior circulation stroke Current Visit: Yes Status: Acute Assessment and plan: Appreciate neurology recommendations. Thrombophilia w/u not indicated as it will not impact treatment recommendations. Continue antiplatelet therapy. Oncology: Subj Interval history: He is feeling well today. No fever chills or symptoms of infection. He is breathing comfortably. Neurology did evaluate the patient. Did inquire about thrombophilia testing given his recent CVA. I reviewed his case with pulmonary. They are not inclined to pursue endobronchial intervention given his alcoholism and overall clinical state. In addition, he is not recent hematocrit from this obstruction. They like to reevaluate him at a later date. - Constitutional Vitals: Vital Signs Temp Pulse Resp BP Pulse Ox 04/22/17 07:51 98.8 F 94 16 136/79 97 04/21/17 23:36 97.9 F 87 16 155/83 97 04/21/17 20:32 97.4 F L 93 16 141/83 94 04/21/17 15:41 97.4 F L 86 16 146/73 96 04/21/17 10:34 98.4 F 81 18 132/71 97 Intake and Output 04/21/17 04/22/17 04/22/17 16:59 00:59 08:59 Intake Total 560 / 560 0 / 0 Output Total 280 / 280 625 / 625 Balance 280 / 280 0 / 0 -625 / -625 Intake: IV Fluids 200 / 200 Zosyn 3.375 GM In 0.9 % Sodium 200 / 200 Chloride (Mini-Bag +) 100 ML @ 25 mls/hr IVPB Q8H FARNAZ Rx#: [id number] Oral 360 / 360 0 / 0 Output: Urine 280 / 280 625 / 625 Other: Meal Lunch Dinner Percent of Meal Consumed 75% 90% # Voids 1 - Head Head exam: Present: atraumatic, normal inspection, normocephalic - Eye Eye exam: Present: normal appearance, conjuntiva pink, sclera anicteric - ENT ENT exam: Present: mucous membranes moist, normal exam - Neck Neck exam: Present: full ROM, normal inspection - Respiratory Respiratory exam: Present: decreased breath sounds Additional comments: Left upper chest - Cardiovascular Cardiovascular exam: Present: RRR - GI/Abdominal GI/Abdominal exam: Present: normal bowel sounds, soft - Extremities Exam Extremities exam: Present: normal inspection - Neurological Exam Neurological exam: Present: alert, CN II-XII intact, oriented X3 Oncology: Obj Data - Labs CBC & Chem 7: 04/22/17 03:38 04/22/17 03:38 Labs: Laboratory Results - last 24 hr 04/21/17 04/22/17 04/22/17 13:12 03:38 03:38 WBC 15.4 H RBC 3.89 L Hgb 12.6 L Hct 36.8 L MCV 94.6 MCH 32.4 MCHC 34.2 RDW 13.0 Plt Count 446 H MPV 8.3 L Immature Gran % 1.0 Seg Neutrophils % 73.5 Lymphocytes % 12.5 Monocytes % 11.6 Eosinophils % 0.9 Basophils % 0.5 Neutrophils # 11.3 H Lymphocytes # 1.9 Monocytes # 1.8 H Eosinophils # 0.1 Basophils # 0.1 Sodium 132 L 129 L Potassium 3.2 L Chloride 93 L Carbon Dioxide 25 BUN 5 L Creatinine 0.73 Est GFR ( Amer) > 60 Est GFR (Non-Af Amer) > 60 BUN/Creatinine Ratio 7 Glucose 114 H Calculated Osmolality 266 L Calcium 8.6 - ABG Interpretation ABG results: PT/INR, D-dimer PT 12.0 Seconds (9.4-12.1) 04/18/17 16:10 Consult Discharge Plan - Plan Referrals: Andre Dodge MD [Primary Care Provider] -
[2017-04-22] MEDS: Folic Acid 1 MG TABLET PO SCH (09:40)
[2017-04-22] MEDS: Nicotine 21 MG PATCH.TD24 TD SCH (09:40)
[2017-04-22] MEDS: metroNIDAZOLE 500 MG TABLET PO SCH ×3 (09:40→21:37)
[2017-04-22] MEDS: Aspirin 325 MG TABLET PO SCH (09:40)
[2017-04-22] MEDS: Thiamine (B-1) 100 MG TABLET PO SCH (09:40)
[2017-04-22] MEDS: levoFLOXacin 750 MG TABLET PO SCH (09:40)
--- NOTE | 2017-04-22 12:35 | Neurology Progress Note ---
Date of Encounter: 04/22/17 Time of Encounter: 07:35 Assessment and Plan (1) Posterior circulation stroke Current Visit: Yes Status: Acute Clinically patient remained stable he did not have any significant focal neurological deficit his dizziness could be related from this posterior distribution stroke CT angiogram of the neck is negative considering his other medical conditions particularly with this concern of lung cancer I would suggest that we should keep him on antiplatelet therapy with aspirin and statin. He may benefit from some short-term rehabilitation (2) PFO (patent foramen ovale) Current Visit: Yes Status: Acute PFO could be and risk factor for stroke as far as treatment concern it remained controversial, usually antiplatelet therapy is recommended along with a statin but if the previous PFO is large enough in that case may benefit from surgical closure At this point he has been getting workup for his lung cancer I think we can continue him on antiplatelet therapy with a statin and later on he could be followed up by cardiology and further workup and treatment options for this PFO as it could be discussed as out patient. when he is clinically more stable (3) Alcoholism Current Visit: Yes Status: Chronic (4) Mass of right lung Current Visit: Yes Status: Suspected Subjective Principal diagnosis: Pneumonia Interval history: Patient denies any other new symptoms denies any focal motor weakness some mild dizziness is still present but no double vision no other new symptoms overall he remains stable. Echocardiogram has been negative for any acute embolic infarct but did shows an evidence of a PFO CT angiogram of the neck is negative for any critical stenosis Objective - Constitutional Vitals: Temp Pulse Resp BP Pulse Ox 98.8 F 94 16 136/79 97 04/22/17 07:51 04/22/17 07:51 04/22/17 07:51 04/22/17 07:51 04/22/17 07:51 - Neurological Exam Sensorimotor examination: Present: intact Motor Examination: Present: grossly full strength in all extremities Sensation intact: Present: intact Mental Status Examination: Present: awake, alert, oriented to person, oriented to place, oriented to time, follows commands appropriately, answers questions appropriately, no agnosia, no aphasia, no aproxia Cranial nerve examination: Present: PERRL, EOMI, visual padgett intact, corneal reflexes brisk symmetrically, sensory to face intact, mastication intact, no facial asymmetry is present, no dysarthria, hearing is intact symmetrically, soft palate elevates bilaterally upon phonation, gag reflex intact, flexes SCM and trapezius muscles symmetrically with full power, tongue protrudes midline Cerebellar examination: Present: no dysmetria Results - Laboratory Findings CBC and BMP: 04/22/17 03:38 04/22/17 03:38 Abnormal lab findings: Abnormal lab results WBC 15.4 K/mcL (4.3-11.1) H 04/22/17 03:38 RBC 3.89 M/mcL (4.19-5.50) L 04/22/17 03:38 Hgb 12.6 g/dL (12.9-16.9) L 04/22/17 03:38 Hct 36.8 % (37.5-50.1) L 04/22/17 03:38 Plt Count 446 K/mcL (140-400) H 04/22/17 03:38 MPV 8.3 fL (9.4-12.4) L 04/22/17 03:38 Neutrophils # 11.3 K/mcL (1.6-8.9) H 04/22/17 03:38 Monocytes # 1.8 K/mcL (0.0-1.3) H 04/22/17 03:38 Sodium 129 mEq/L (136-145) L 04/22/17 03:38 Potassium 3.2 mEq/L (3.5-4.5) L 04/22/17 03:38 Chloride 93 mEq/L (98-109) L 04/22/17 03:38 BUN 5 mg/dL (8-26) L 04/22/17 03:38 Glucose 114 mg/dL (70-99) H 04/22/17 03:38 POC Glucose 120 (58-89) H 04/21/17 05:40 Serum Osmolality 254 mOsm/kg (280-300) L 04/20/17 00:49 Calculated Osmolality 266 (280-300) L 04/22/17 03:38 B-Natriuretic Peptide 119 pg/mL (0-100) H 04/18/17 16:10 Serum Total Protein 5.7 g/dL (6.0-8.3) L D 04/19/17 06:06 Albumin 1.8 g/dL (3.5-5.0) L 04/19/17 06:06 Globulin 3.9 g/dL (2.4-3.5) H 04/19/17 06:06 Albumin/Globulin Ratio 0.5 (1.1-2.2) L 04/19/17 06:06 Urine Osmolality 231 mOsm/kg (300-1090) L 04/20/17 Unknown Vancomycin Trough 9.5 mcg/mL (10-20) L 04/20/17 12:55 Consult Discharge Plan - Plan Referrals: Andre Dodge MD [Primary Care Provider] -
--- NOTE | 2017-04-22 15:58 | Internal Med Progress Note ---
Date of Encounter: 04/22/17 Time of Encounter: 10:15 - Assessment and plan (1) Pneumonia Current Visit: Yes Status: Acute Assessment and plan: Postobstructive pneumonia. Blood cultures and sputum cultures have been negative. Continue levofloxacin. Will complete 14 day treatment course. Qualifiers: Pneumonia type: due to unspecified organism Laterality: right Lung location: upper lobe of lung Qualified Code(s): J18.1 - Lobar pneumonia, unspecified organism (2) Mass of right lung Current Visit: Yes Status: Suspected Assessment and plan: Awaiting pathology results. Oncology following patient. MRI of the brain did not show any metastatic lesions. Oncology recommended bronchoscopy debulking of endobronchial lesion. However at this time pulmonology recommends waiting given patient's comorbidities and history of alcohol abuse with risk of alcohol withdrawal. (3) Posterior circulation stroke Current Visit: Yes Status: Acute Assessment and plan: Continue aspirin and statin. 2-D echocardiogram showed a patent foraminal ovale. Neurology recommends continuing aspirin and statin for now and follow up as outpatient with cardiology for further recommendations (4) Alcoholism Current Visit: Yes Status: Chronic Assessment and plan: Remains at risk for alcohol withdrawal. So far has not had significant withdrawal symptoms. We will continue to monitor per [facility] protocol (5) Emphysema of lung Current Visit: Yes Status: Chronic Assessment and plan: Continue bronchodilators as needed Qualifiers: Emphysema type: centrilobular Qualified Code(s): J43.2 - Centrilobular emphysema (6) Hypokalemia Current Visit: Yes Status: Acute Assessment and plan: Stable. Continue replacement orally (7) Hypomagnesemia Current Visit: Yes Status: Resolved (8) Hyponatremia Current Visit: Yes Status: Chronic Assessment and plan: Chronic. Could be related to chronic alcoholism/lung mass. On fluid restriction. (9) Tobacco abuse Current Visit: Yes Status: Chronic Assessment and plan: Nicotine patch - Subjective Interval history: Patient is asleep but easily awakes. Answers questions appropriately. Denies any pain at this time. No shortness of breath. No tremors. No anxiety. No palpitations. - Constitutional Vitals: Temp Pulse Resp BP Pulse Ox 97.4 F L 87 14 99/52 96 04/22/17 11:00 04/22/17 11:00 04/22/17 11:00 04/22/17 11:00 04/22/17 11:00 General appearance: Present: cachectic, A&O X 3, no acute distress, underweight , answers questions appropriately - Neck Neck exam general surgery: Present: supple, trachea midline. Absent: lymphadenopathy - Respiratory Respiratory exam: Present: decreased breath sounds (Over right lung). Absent: accessory muscle use, rales, rhonchi, wheezes - Cardiovascular Cardiovascular exam: Present: RRR, +S1, +S2. Absent: diastolic murmur, gallop, rubs, systolic murmur - GI/Abdominal GI/Abdominal exam: Present: normal bowel sounds, soft, no peritoneal signs. Absent: distended, tenderness - Extremities Exam Extremities exam: Present: warm, radial pulses palpable and symmetrical. Absent : calf tenderness, cyanotic, pedal edema - Neurological Exam Neurological exam: Present: oriented X3, no focal deficits, strengths equal and symetr throughout. Absent: facial droop, speech deficit Internal Medicine: Result - Labs CBC & Chem 7: 04/22/17 03:38 04/22/17 03:38 Labs: Short CBC 04/22/17 Range/Units 03:38 WBC 15.4 H (4.3-11.1) K/mcL Hgb 12.6 L (12.9-16.9) g/dL Hct 36.8 L (37.5-50.1) % Plt Count 446 H (140-400) K/mcL Neutrophils # 11.3 H (1.6-8.9) K/mcL BMP 04/22/17 03:38 Sodium 129 L Potassium 3.2 L Chloride 93 L Carbon Dioxide 25 BUN 5 L Creatinine 0.73 Glucose 114 H Calcium 8.6 - ABG Interpretation ABG results: PT/INR, D-dimer PT 12.0 Seconds (9.4-12.1) 04/18/17 16:10 - Impressions Impressions Echocardiogram 04/21/17 13:42 Impressions: LVEF 50-55%. Normal LV chamber size, wall thickness and function. Mild left ventricular diastolic dysfunction. Normal right ventricular structure and function. Unable to estimate RVSP due to lack of TR jet. No significant valvular dysfunction. Evidence of a PFO with right to left shunt after administration of agitated saline. Left Ventricular Wall Motion: Rest Echo Findings All wall segments showed normal motion. Findings: Study Quality * Technically adequate exam. ECG Findings * Normal sinus rhythm. Left Ventricle * LVEF 50-55%. * Normal LV chamber size, wall thickness and function. * Mild left ventricular diastolic dysfunction. Right Ventricle * Normal right ventricular structure and function. Left Atrium * Normal left atrial size. Right Atrium * Normal right atrial size. Aortic Valve * Aortic valve not well visualized. * No aortic stenosis. * No aortic regurgitation. Mitral Valve * Normal mitral valve structure and function. * No mitral stenosis. * No mitral regurgitation. Tricuspid Valve * Normal tricuspid valve structure and function. * No tricuspid regurgitation. * Unable to estimate RVSP due to lack of TR jet. Pulmonic Valve * Normal pulmonic valve structure and function. * No pulmonic regurgitation. Aorta * Normally sized aortic root. Pericardium * The pericardium appears normal. IVC * Normal IVC dimensions and inspiratory collapse. Pulmonary Artery * Normal visualized portions of the main pulmonary artery. Interatrial Septum * Evidence of a PFO with right to left shunt after administration of agitated saline. Consult Discharge Plan - Plan Referrals: Andre Dodge MD [Primary Care Provider] -
[2017-04-23 05:30] LABS: Basophils # 0.1 K/mcL (0.0-0.2); Basophils % 0.5 %; Eosinophils # 0.2 K/mcL (0.0-0.6); Eosinophils % 1.3 %; Hematocrit 35.7 % (37.5-50.1); Hemoglobin 12.4 g/dL (12.9-16.9); Lymphocytes # 1.6 K/mcL (0.6-4.6); Lymphocytes % 9.6 %; Mean Corpuscular HGB Conc 34.7 g/dL (31.6-35.5); Mean Corpuscular Hemoglobin 32.3 pg (28.0-33.3); Mean Platelet Volume 8.2 fL (9.4-12.4); Monocytes # 2.2 K/mcL (0.0-1.3); Monocytes % 13.3 %; Platelet Count 464 K/mcL (140-400); Red Blood Count 3.84 M/mcL (4.19-5.50); Red Cell Distribution Width 12.8 % (11.5-14.5); Segmented Neutrophils % 74.3 %
[2017-04-23 05:44] LABS: BUN/Creatinine Ratio 9 (6-26); Blood Urea Nitrogen 7 mg/dL (8-26); Calcium 8.9 mg/dL (8.6-10.8); Carbon Dioxide 23 mEq/L (19-29); Chloride 94 mEq/L (98-109); Glucose 93 mg/dL (70-99); Osmolality,Calculated 266 (280-300); Sodium 129 mEq/L (136-145); eGFR For African Americans > 60 (> 60); eGFR For Non-African Americans > 60 (> 60)
[2017-04-23] MEDS: *HR* Heparin 5,000 UNIT/ML VIAL SQ SCH (06:16)
[2017-04-23] MEDS: levoFLOXacin 750 MG TABLET PO SCH (08:38)
[2017-04-23] MEDS: Folic Acid 1 MG TABLET PO SCH (08:38)
[2017-04-23] MEDS: metroNIDAZOLE 500 MG TABLET PO SCH ×2 (08:38→15:10)
[2017-04-23] MEDS: Thiamine (B-1) 100 MG TABLET PO SCH (08:38)
[2017-04-23] MEDS: Aspirin 325 MG TABLET PO SCH (08:39)
[2017-04-23] MEDS: Nicotine 21 MG PATCH.TD24 TD SCH (08:39)
[2017-04-23] MEDS ORDERED: Lactobacillus 1 EACH CAP.SPRINK PO SCH (11:00)
--- NOTE | 2017-04-23 11:07 | Nephrology Progress Note ---
Date of Encounter: 04/23/17 Time of Encounter: 10:58 - Assessment and Plan (1) Hyponatremia Current Visit: Yes Status: Chronic Patient with appropriate correction of his sodium level to 131. He has drifted down to 129 and seems to be stable and asymptomatic. Chronicity of his hyponatremia is unknown, but with his chronic alcohol use it has likely been present for a while. His urine osmolality is lower than his serum osmolality suggesting that he was having at least some aquaresis. Will repeat urine and serum osmolality in am if the patient is still here. was asking about discharge. From a renal standpoint his hyponatremia seems stable and asymptomatic such that is should be able to be safely managed on an outpatient basis. I recommend a fluid restriction of 1.5 to 2L/daily and monitoring his sodium weekly x 2 weeks. He can follow-up with [facility] in 4-6 weeks with BMP, urine and serum osmolality 1-2 weeks prior to the clinic visit. (2) Community acquired pneumonia Current Visit: Yes Status: Acute Per primary team. Qualifiers: Laterality: right Lung location: unspecified part of lung Qualified Code( s): J18.9 - Pneumonia, unspecified organism (3) Hypokalemia Current Visit: Yes Status: Acute Replaced. (4) Alcoholism Current Visit: Yes Status: Chronic Per primary team. (5) Mass of right lung Current Visit: Yes Status: Suspected Per oncology. Patient with non small cell lung cancer with no obvious metastasis. Subjective Principal diagnosis: Pneumonia Interval history: Patient seen and evaluated. No new complaint. He denies nausea or vomiting. He thinks his appetite is improving. Objective - Vital Signs Vital signs: Vital Signs Temp Pulse Resp BP Pulse Ox 04/23/17 07:21 98.2 F 96 15 133/74 95 04/23/17 03:59 98.6 F 87 15 142/72 97 04/23/17 00:23 98.7 F 87 16 149/74 96 04/22/17 20:22 98.5 F 90 16 152/75 96 04/22/17 11:00 97.4 F L 87 14 99/52 96 Intake and Output 04/22/17 04/23/17 04/23/17 23:59 07:59 15:59 Intake Total 120 / 120 200 / 200 360 / 360 Output Total 1775 / 1775 0 / 0 Balance 120 / 120 -1575 / -1575 360 / 360 Intake: Oral 120 / 120 200 / 200 360 / 360 Output: Urine 1775 / 1775 0 / 0 Other: Meal Dinner Breakfast Percent of Meal Consumed 50% 80% # Bowel Movements 0 0 Weight 55 kg Patient Weight 04/23/17 23:59 Weight 55 kg - General Appearance General appearance: Present: well-developed, chronically ill, frail EENT: Present: ATNC Neck: Present: supple Respiratory: Present: clear Cardiology: Present: no edema, regular rate Integumentary: Present: warm and dry Musculoskeletal: Present: no cyanosis Psychiatric: Present: mood/affect appropriate - Lab 04/23/17 04:02 04/23/17 04:02 Most recent lab results Calcium 8.9 mg/dL (8.6-10.8) 04/23/17 04:02 Phosphorus 3.3 mg/dL (2.3-4.7) 04/21/17 01:17 Magnesium 1.7 mg/dL (1.6-2.6) 04/21/17 01:17 Urine Sodium 31.0 mEq/L 04/19/17 13:20 Consult Discharge Plan - Plan Referrals: Andre Dodge MD [Primary Care Provider] -
--- NOTE | 2017-04-23 11:46 | Event Note ---
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 possibly limited involvement to the right upper lung although PET scan will need to be obtained as an outpatient with oncology with close oncology follow-up Cj west spoke directly with the patient and his in the room and also spoke with her daughter Maribell who is a nurse here and updated them on our plan from pulmonary standpoint no plan for interventional pulmonary procedure present for some the reasons outlined in previous note in addition to the diagnosis of stroke which would also put him increased risk for further neurological complications at least in the acute period given that this procedure would have to be done under general anesthesia. So from from our standpoint patient can be discharged when medically appropriate to follow-up with medical oncology for PET scan and further staging and they can consult pulmonary on an outpatient basis if deemed necessary for staging and or debulking procedure down the line. Pulmonary will officially sign off thank you for allowing us to participate in the care of this patient please do not hesitate to call us with any questions
[2017-04-23 14:41] VITALS: BP 148/83
--- NOTE | 2017-04-23 16:00 | Discharge Summary ---
Date of Encounter: 04/23/17 Time of Encounter: 15:55 - Discharge Diagnosis (1) Pneumonia Priority: Primary Status: Acute Qualifiers: Pneumonia type: due to unspecified organism Laterality: right Lung location: upper lobe of lung Qualified Code(s): J18.1 - Lobar pneumonia, unspecified organism (2) Squamous cell carcinoma of right lung Priority: Secondary Status: Acute (3) Mass of right lung Priority: Secondary Status: Suspected (4) Posterior circulation stroke Priority: Secondary Status: Acute (5) Alcoholism Priority: Secondary Status: Chronic (6) Emphysema of lung Priority: Secondary Status: Chronic Qualifiers: Emphysema type: centrilobular Qualified Code(s): J43.2 - Centrilobular emphysema (7) Hypokalemia Priority: Secondary Status: Acute (8) Hypomagnesemia Priority: Secondary Status: Resolved (9) Hyponatremia Priority: Secondary Status: Chronic (10) Tobacco abuse Priority: Secondary Status: Chronic - Discharge Medications Prescriptions: Aspirin Enteric Coated [Aspirin EC] 81 mg PO DAILY #30 tablet. Folic Acid 1 mg PO DAILY #30 tablet Lactobacillus [Culturelle] 1 each PO BID #30 cap.sprink levoFLOXacin [Levaquin] 750 mg PO DAILY #10 tablet metroNIDAZOLE [Flagyl] 500 mg PO TID #30 tablet Potassium Chloride [Klor-Con 10] 10 meq PO DAILY #30 tablet.er Simvastatin [Zocor] 40 mg PO HS #30 tablet Thiamine (B-1) [Vitamin B-1] 100 mg PO DAILY #30 tablet Home Medications: Amlodipine Besylate 10 mg PO DAILY 04/19/17 [History] Metoprolol Succinate 100 mg PO DAILY 04/19/17 [History] Aspirin Enteric Coated [Aspirin EC] 81 mg PO DAILY #30 tablet. 04/23/17 [Rx] Folic Acid 1 mg PO DAILY #30 tablet 04/23/17 [Rx] Lactobacillus [Culturelle] 1 each PO BID #30 cap.sprink 04/23/17 [Rx] Potassium Chloride [Klor-Con 10] 10 meq PO DAILY #30 tablet.er 04/23/17 [Rx] Simvastatin [Zocor] 40 mg PO HS #30 tablet 04/23/17 [Rx] Thiamine (B-1) [Vitamin B-1] 100 mg PO DAILY #30 tablet 04/23/17 [Rx] levoFLOXacin [Levaquin] 750 mg PO DAILY #10 tablet 04/23/17 [Rx] metroNIDAZOLE [Flagyl] 500 mg PO TID #30 tablet 04/23/17 [Rx] Lisinopril [Zestril] 10 mg PO DAILY 04/25/17 [History] Loratadine [Allergy Relief] 10 mg PO DAILY 04/25/17 [History] Allergies/Adverse Reactions: 3 Allergy/AdvReac Type Severity Reaction Status Date / Time losartan [From Cozaar] Allergy See Verified 04/19/17 13:17 Comments Procedures/tests Complete & Pending: Procedures Performed prior 72 hours Category Date Time Status CT angio head [CT] Routine Cat Scan 04/21/17 23:[address] angio neck [CT] Routine Cat Scan 04/21/17 23:03 Completed MR head wo/w con [MR] Stat MRI 04/20/17 17:17 Completed EV echo with saline Routine Y 04/21/17 13:42 Completed Date of admission: 04/18/17 22:41 Primary care physician: Andre Dodge MD Consults: 04/19/17 08:11 Consult to Shampooer [CONS] Routine Reason for SW Consult: alcohol abuse 04/19/17 08:16 Consult to Pulmonology [CONS] Routine Consulting Provider: [facility] Reason for Consult: lung ca Call Completed: Yes 04/19/17 15:02 Consult to Nephrology [CONS] Stat Consulting Provider: [facility]UD[facility]/YAMILETH Reason for Consult: Hyponatremia Call Completed: Yes 04/20/17 14:34 Consult to Oncology [CONS] Routine Consulting Provider: [facility] Reason for Consult: suspicious for lung cancer Call Completed: Yes 04/20/17 22:25 Consult to Occupational Therapy [CONS] Routine Comment: Evaluate, develop and implement POC Reason for Consult: Acute CVA Consult to Physical Therapy [CONS] Routine Comment: Evaluate, develop and implement POC Reason for Consult: Acute CVA 04/20/17 22:32 Consult to Neurology [CONS] Routine Consulting Provider: [facility] Reason for Consult: acute CVA Call Completed: No Discharging clinician: Mike Bridges Anticipated date of discharge: 04/23/17 - Patient Status Disposition: Home, Self-Care Condition: Good Functional capacity at discharge: independent ambulation Overall status at discharge: patient is progressing back to baseline - Discharge Instructions Instructions: Pneumonia (DC) Follow Up With: Choco Smith MD [Partnered Physician] - (4-6 weeks WEB REQUEST - OFFICE WILL CALL WITH APPOINTMENT TIME) Bg Perales MD [Partnered Physician] - (As early as possible WEB REQUEST - OFFICE WILL CALL WITH APPOINTMENT TIME ) Ozzy Andres MD [Partnered Physician] - (2-3 weeks for acute post circulation stroke WEB REQUEST - OFFICE WILL CALL WITH APPOINTMENT TIME) Andre Dodge MD [Primary Care Provider] - (in 1 week) - Diet and Activity Activity: resume usual activities as tolerated Diet: low fat, low cholesterol, other (Fluid restriction to 1.5-2 L daily) Hospital course: Mr. Barfield is a 62 year old male patient with history of hypertension, chronic cigarette smoker, and chronic alcohol use was admitted to the hospital for pneumonia involving his right lung. Chest CT scan done here initially in the ER also showed a mass in the right lung to be endobronchial with post obstructive pneumonia. Patient also had multiple electrolyte abnormalities including hypokalemia and hyponatremia. Pulmonology was consulted and they proceeded with bronchoscopy and biopsy of the patient's mass. Nephrology was also consulted to help manage patient's hyponatremia. Oncology was consulted for their recommendations on the patient' s lung mass. Initially patient did not wish to stop drinking alcohol but after discussion with the screw machine set up operator tool and mainly made aware that chemotherapy may not be offered in case of continued alcohol use, he wished to quit drinking. Initially he did develop symptoms of alcohol withdrawal which was managed with beer as he did not wish to quit drinking. However since then his symptoms improved and he has not developed any further withdrawal symptoms. During workup, an MRI of the brain was done to look for any metastatic lesions. While this did not show any metastatic lesions, he did find an acute posterior circulation stroke. The patient is on further investigation, the patient reported that he had an episode of sudden fall without any focal deficit 2 days prior to presentation. Neurology was consulted and patient was placed on aspirin and statin per the recommendations. He was evaluated by physical therapy and recommended outpatient therapy. Oncology recommended that patient undergo bronchoscopic debulking of the tumor lesion. Pulmonology evaluated the patient and will follow up with him as outpatient to further evaluate for this. At this time, patient is stable for discharge home and will follow up with oncology and pulmonology as outpatient. His sodium levels have improved since admission and are stable. He was placed on free water restriction and can follow up with nephrology as outpatient. He will complete antibiotic course for postobstructive pneumonia. He has been on room air here and he is not requiring O2 supplementation. - Time Spent with Patient Total time spent providing and/or coordinating discharge services: Greater than 30 minutes (50 min) - Constitutional Vitals: Temp Pulse Resp BP Pulse Ox 98.0 F 82 16 148/83 97 04/23/17 14:36 04/23/17 14:36 04/23/17 14:36 04/23/17 14:36 04/23/17 14:36 General appearance: Present: cachectic, A&O X 3, no acute distress, underweight , answers questions appropriately - Neck Neck exam general surgery: Present: supple, trachea midline. Absent: lymphadenopathy - Respiratory Respiratory exam: Present: decreased breath sounds (right base). Absent: accessory muscle use, rales, rhonchi, wheezes - GI/Abdominal GI/Abdominal exam: Present: normal bowel sounds, soft, no peritoneal signs. Absent: distended, tenderness - Extremities Exam Extremities exam: Present: warm, radial pulses palpable and symmetrical. Absent : calf tenderness, cyanotic, pedal edema - Neurological Exam Neurological exam: Present: alert, CN II-XII intact, oriented X3, no focal deficits. Absent: facial droop, speech deficit - Skin Skin exam: Present: dry, intact
--- NOTE | 2017-04-23 18:04 | Oncology Inp Progress Note ---
Date of Encounter: 04/23/17 Time of Encounter: 13:00 (1) Squamous cell carcinoma of right lung Status: Acute Assessment and plan: Bronchoscopy showed exophytic fungating mass right upper lobe. Pathology confirmed squamous cell carcinoma Cannot showed atelectasis of right upper lobe related to postobstructive pneumonia We will make appointment with Dr. avendaño as an outpatient. We will schedule PET scan. Depending on the staging may consider surgery versus concurrent chemoradiation. Also pulmonary function testing as an outpatient if necessary. I gave printed copies of the CAT scan and pathology report and discussed the findings with the patient Oncology: Subj Interval history: Hard of hearing. Mild deconditioning and shortness of breath - Constitutional Vitals: Vital Signs Temp Pulse Resp BP Pulse Ox 04/23/17 14:36 98.0 F 82 16 148/83 97 04/23/17 12:21 97.3 F L 79 18 131/75 96 04/23/17 07:21 98.2 F 96 15 133/74 95 04/23/17 03:59 98.6 F 87 15 142/72 97 04/23/17 00:23 98.7 F 87 16 149/74 96 04/22/17 20:22 98.5 F 90 16 152/75 96 Intake and Output 04/23/17 04/23/17 04/23/17 07:59 15:59 23:59 Intake Total 200 / 200 840 / 840 Output Total 1775 / 1775 0 / 0 Balance -1575 / -1575 840 / 840 Intake: Oral 200 / 200 840 / 840 Output: Urine 1775 / 1775 0 / 0 Other: Meal Lunch Percent of Meal Consumed 100% # Bowel Movements 0 0 Weight 55 kg Patient Weight 04/23/17 23:59 Weight 55 kg Exam: GENERAL: Alert and oriented, deconditioned, hard of hearing Mental Status: Affect appropriate for circumstances HEENT: Sclerae anicteric. No mucositis or thrush. No other oral or pharyngeal lesions or erythema. Skin: No rashes or petechiae. No evidence of skin malignancy Lymph nodes: No cervical, supraclavicular, axillary, or inguinal adenopathy. Lungs: Mild wheezing bilateral Cardiovascular: Regular rate and rhythm. No skipped beats Abdomen: Soft, nontender; no organomegaly or masses palpable. Extremities: No edema. No calf swelling or tenderness. No joint deformity. Neurologic: Alert, cranial nerves II-XII intact; normal gait; no focal weakness or sensory abnormalities Oncology: Obj Data - Labs CBC & Chem 7: 04/23/17 04:02 04/23/17 04:02 Labs: Laboratory Results - last 24 hr 04/23/17 04/23/17 04:02 04:02 WBC 16.2 H RBC 3.84 L Hgb 12.4 L Hct 35.7 L MCV 93.0 MCH 32.3 MCHC 34.7 RDW 12.8 Plt Count 464 H MPV 8.2 L Immature Gran % 1.0 Seg Neutrophils % 74.3 Lymphocytes % 9.6 Monocytes % 13.3 Eosinophils % 1.3 Basophils % 0.5 Neutrophils # 12.0 H Lymphocytes # 1.6 Monocytes # 2.2 H Eosinophils # 0.2 Basophils # 0.1 Sodium 129 L Potassium 4.0 Chloride 94 L Carbon Dioxide 23 BUN 7 L Creatinine 0.81 Est GFR ( Amer) > 60 Est GFR (Non-Af Amer) > 60 BUN/Creatinine Ratio 9 Glucose 93 Calculated Osmolality 266 L Calcium 8.9 - ABG Interpretation ABG results: PT/INR, D-dimer PT 12.0 Seconds (9.4-12.1) 04/18/17 16:10 Consult Discharge Plan - Plan Instructions: Pneumonia (DC) Referrals: Choco Smith MD [Partnered Physician] - (4-6 weeks WEB REQUEST - OFFICE WILL CALL WITH APPOINTMENT TIME) Bg Perales MD [Partnered Physician] - (As early as possible WEB REQUEST - OFFICE WILL CALL WITH APPOINTMENT TIME ) Ozzy Andres MD [Partnered Physician] - (2-3 weeks for acute post circulation stroke WEB REQUEST - OFFICE WILL CALL WITH APPOINTMENT TIME) Andre Dodge MD [Primary Care Provider] - (in 1 week) Prescriptions: Aspirin Enteric Coated [Aspirin EC] 81 mg PO DAILY #30 tablet. Folic Acid 1 mg PO DAILY #30 tablet Lactobacillus [Culturelle] 1 each PO BID #30 cap.sprink levoFLOXacin [Levaquin] 750 mg PO DAILY #10 tablet metroNIDAZOLE [Flagyl] 500 mg PO TID #30 tablet Potassium Chloride [Klor-Con 10] 10 meq PO DAILY #30 tablet.er Simvastatin [Zocor] 40 mg PO HS #30 tablet Thiamine (B-1) [Vitamin B-1] 100 mg PO DAILY #30 tablet
== END 2017-04-23 17:32 | disposition home or self-care (01) | DRG 166 ==
LOC: 3ANU 15:49 → EMEROO 15:49 → 3ANU 22:15 → SUATTDRO 22:41
PROVIDERS: ADMIT Internal Medicine; ATTEND Internal Medicine
PROC: ENDOLBX (2017-04-20 15:30)

== ENCOUNTER 2017-06-05 10:02 | Inpatient (IN) ==
--- NOTE | 2017-06-05 10:24 | Emergency Department Note ---
Disposition Clinical Impression: Hyponatremia Lung cancer Qualifiers: Laterality: unspecified laterality Lung location: unspecified part of lung Qualified Code(s): C34.90 - Malignant neoplasm of unspecified part of unspecified bronchus or lung Anemia Qualifiers: Anemia type: unspecified type Qualified Code(s): D64.9 - Anemia, unspecified Disposition: Admitted As Inpatient Condition: Fair Instructions: Dehydration (ED), Anemia (ED) Reasons to Return/Additional Instructions: Return if you change your mind about admission. Follow-up with the [facility]. Referrals: Andre Dodge MD [Primary Care Provider] - Forms: ED Satisfaction Letter Time of Disposition: 12:07 Weakness HPI - General Chief complaint: ED Weakness Stated complaint: Weakness/Abnormal labs Time Seen by Provider: 06/05/17 10:17 Source: patient, family Limitations: no limitations Nursing Notes Reviewed: Yes Vital Signs Reviewed: Yes - History of Present Illness HPI Narrative: 62-year-old gentleman with a history of non-small cell carcinoma of the lung who received his first chemotherapy about 3 weeks ago and is in the process of getting set up for radiation therapy who was seen at [facility] and had labs done and was found to have a low sodium. Family doesn't know what the level was as they were not told but patient is here for evaluation of generalized weakness. Pt Subjective Complaint: generalized weakness/fatigue Onset (ago): day(s) Duration: constant Location: generalized Pain Scale: 0 Improves with: none Worsens with: none Context: recent illness (Non-small cell carcinoma of the lung) - Related Data Home Medications Medication Instructions Recorded Confirmed Amlodipine Besylate 10 mg PO DAILY 04/19/17 04/25/17 Metoprolol Succinate 100 mg PO DAILY 04/19/17 04/25/17 Lisinopril [Zestril] 10 mg PO DAILY 04/25/17 04/25/17 Loratadine [Allergy Relief] 10 mg PO DAILY 04/25/17 04/25/17 Previous Rx's Medication Instructions Recorded Aspirin Enteric Coated [Aspirin EC] 81 mg PO DAILY #30 tablet. 04/23/17 Folic Acid 1 mg PO DAILY #30 tablet 04/23/17 Lactobacillus [Culturelle] 1 each PO BID #30 cap.sprink 04/23/17 Potassium Chloride [Klor-Con 10] 10 meq PO DAILY #30 tablet.er 04/23/17 Simvastatin [Zocor] 40 mg PO HS #30 tablet 04/23/17 Thiamine (B-1) [Vitamin B-1] 100 mg PO DAILY #30 tablet 04/23/17 levoFLOXacin [Levaquin] 750 mg PO DAILY #10 tablet 04/23/17 metroNIDAZOLE [Flagyl] 500 mg PO TID #30 tablet 04/23/17 Nicotine Patch [Nicoderm] 21 mg TD DAILY #14 patch.[id number] 04/27/17 Allergies Allergy/AdvReac Type Severity Reaction Status Date / Time losartan [From Cozaar] Allergy See Verified 04/19/17 13:17 Comments All systems ED: reviewed and negative except as stated. Constitutional: Denies: fever, chills, weakness, weight change Eyes: Denies: eye pain, eye discharge, vision change ENT ED: Denies: ear pain, throat pain, dental pain, hearing loss, epistaxis, congestion, dysphagia Cardiovascular: Denies: chest pain, palpitations, dyspnea on exertion, edema, syncope Respiratory: Denies: cough, dyspnea, wheezes, hemoptysis, stridor Gastrointestinal: Denies: abdominal pain, nausea, vomiting, diarrhea, constipation, hematemesis, melena, hematochezia Genitourinary: Denies: urgency, dysuria, frequency, hematuria Musculoskeletal: Denies: back pain, neck pain, arthralgia, myalgia Integumentary: Denies: rash, abrasion, lesions Neurological: Reports: weakness (Generalized). Denies: headache, numbness, paresthesias, confusion, abnormal gait, vertigo Psychiatric: Denies: anxiety, depression, suicidal thoughts, homicidal thoughts , auditory hallucinations, visual hallucinations Endocrine: Denies: fatigue Hematological/Lymphatic: Denies: easy bleeding, easy bruising Allergic/Immunologic: Denies: facial swelling, urticaria Past Medical History - Past Medical History Medical history: Reports: cancer, COPD, hypertension Surgical history: Reports: no surgical history Psychiatric history: Reports: no psych history - Social History Smoking Status: Former smoker Smokeless Tobacco Status: No Alcohol use: Reports: none Drug use: Reports: none Physical Exam - General Limitations: no limitations General appearance: alert - Head Head exam: atraumatic, normocephalic, normal inspection - Eye Eye exam: Present: normal appearance, PERRL, EOMI - ENT ENT exam: normal exam, normal oropharynx, mucous membranes moist - Neck Neck exam: Present: normal inspection, full ROM, trachea midline - Chest Chest inspection: Present: normal inspection, symmetric chest wall rise - Respiratory Respiratory exam: Present: normal lung sounds bilaterally - Cardiovascular Cardiovascular exam: Present: regular rate, normal rhythm, normal heart sounds - Abdominal Exam Abdominal exam: Present: soft, Non-Tender. Absent: tenderness, distention, guarding, rebound, rigidity - Extremities Exam Extremities exam: Present: normal inspection, full ROM. Absent: tenderness, pedal edema - Expanded Lower Extremity Exam Neurovascular/Tendon exam: Absent: motor deficit, sensory deficit, tendon deficit Gait: observed and normal - Back Exam Back exam: Present: normal inspection, full ROM. Absent: tenderness - Neurological Exam Neurological exam: Present: alert, oriented X3 - Psychiatric Psychiatric exam: Present: normal affect, normal mood - Skin Skin exam: Present: warm, dry, intact, normal color Course - Reevaluation(s) Reevaluation #1: 62-year-old with a sodium of 124. I did review his previous sodiums and he is always in the mid 120s. I did give him some IV 0.9 and discussed admission with him and he declines admission he says he wants to go home. His is here and is in agreement. Time: 14:04 Reevaluation #2: He initially wanted to [place] [facility] with low sodium 124. We gave him some normal saline and repeated his lab work and his hemoglobin actually down to 7.5 his potassium is 2.7 we gave him an oral replacement. This point time is that he is weak to go ahead and admit him. Time: 16:55 - Consultations Consultation #1: Discussed with , normal saline. Time: 12:06 Consultation #2: Discussed with Dr. Jai mark. Time: 17:42 Vital Signs Temperature 97.9 F 06/05/17 10:04 Pulse Rate 106 06/05/17 10:04 Respiratory Rate 20 06/05/17 10:04 Blood Pressure 102/65 06/05/17 10:04 O2 Sat by Pulse Oximetry 99 06/05/17 10:04 Temperature 97.9 F 06/05/17 10:04 Pulse Rate 97 06/05/17 16:54 Respiratory Rate 20 06/05/17 16:54 Blood Pressure 124/66 06/05/17 16:54 O2 Sat by Pulse Oximetry 97 06/05/17 16:54 Oxygen Delivery Oxygen Delivery Room Air Weakness - Lab Data Lab results reviewed: Yes I reviewed the patient's lab results. Result diagrams: 06/05/17 15:59 06/05/17 15:59 Lab Results 06/05/17 06/05/17 06/05/17 Range/Units 10:25 10:25 10:25 WBC 12.3 H (4.3-11.1) K/mcL RBC 2.84 L (4.19-5.50) M/mcL Hgb 8.9 L (12.9-16.9) g/dL Hct 25.5 L (37.5-50.1) % MCV 89.8 (83.0-100.0) fL MCH 31.3 (28.0-33.3) pg MCHC 34.9 (31.6-35.5) g/dL RDW 13.2 (11.5-14.5) % Plt Count 425 H (140-400) K/mcL MPV 7.7 L (9.4-12.4) fL Immature Gran % (0-4) % Seg Neutrophils % 70.0 % Lymphocytes % 16.0 % Monocytes % 14.0 % Eosinophils % % Basophils % % Neutrophils # 8.6 (1.6-8.9) K/mcL Lymphocytes # 2.0 (0.6-4.6) K/mcL Monocytes # 1.7 H (0.0-1.3) K/mcL Eosinophils # (0.0-0.6) K/mcL Basophils # (0.0-0.2) K/mcL Platelet Estimate Slight increase H (Normal) Clumped Platelets Few A (Not Present) Hypochromasia Present A (Not Present) Sodium 124 L (136-145) mEq/L Potassium 3.2 L (3.5-4.5) mEq/L Chloride 87 L (98-109) mEq/L Carbon Dioxide 27 (19-29) mEq/L BUN 6 L (8-26) mg/dL Creatinine 0.67 L (0.72-1.25) mg/dL Est GFR ( Amer) > 60 (> 60) Est GFR (Non-Af Amer) > 60 (> 60) BUN/Creatinine Ratio 9 (6-26) Glucose 157 H (70-99) mg/dL Calculated Osmolality 259 L (280-300) Lactic Acid 2.1 (0.5-2.2) mmol/L Calcium 8.3 L (8.6-10.8) mg/dL Total Bilirubin 0.2 (0.2-1.2) mg/dL AST 14 (5-34) Units/L ALT 13 (0-55) Units/L Alkaline Phosphatase 71 (38-126) Units/L Troponin I (0-0.03) ng/mL Serum Total Protein 6.1 (6.0-8.3) g/dL Albumin 2.0 L (3.5-5.0) g/dL Globulin 4.1 H (2.4-3.5) g/dL Albumin/Globulin Ratio 0.5 L (1.1-2.2) Urine Color (Yellow) Urine Clarity (Clear) Urine pH (5.0-8.0) pH Units Ur Specific Thornton (1.010-1.025) Urine Protein (Neg-Trace) mg/dL Urine Glucose (UA) (Normal) mg/dL Urine Ketones (Negative) mg/dL Urine Blood (Negative) Urine Nitrite (Negative) Urine Bilirubin (Negative) Urine Urobilinogen (Normal) mg/dL Ur Leukocyte Esterase (Negative) Ur Culture Indicated? (NO) 06/05/17 06/05/17 06/05/17 Range/Units 10:25 11:35 15:59 WBC 10.3 (4.3-11.1) K/mcL RBC 2.47 L (4.19-5.50) M/mcL Hgb 7.5 L (12.9-16.9) g/dL Hct 22.2 L (37.5-50.1) % MCV 89.9 (83.0-100.0) fL MCH 30.4 (28.0-33.3) pg MCHC 33.8 (31.6-35.5) g/dL RDW 13.2 (11.5-14.5) % Plt Count 362 (140-400) K/mcL MPV 7.8 L (9.4-12.4) fL Immature Gran % 1.0 (0-4) % Seg Neutrophils % 59.5 % Lymphocytes % 16.8 % Monocytes % 21.7 % Eosinophils % 0.7 % Basophils % 0.3 % Neutrophils # 6.1 (1.6-8.9) K/mcL Lymphocytes # 1.7 (0.6-4.6) K/mcL Monocytes # 2.2 H (0.0-1.3) K/mcL Eosinophils # 0.1 (0.0-0.6) K/mcL Basophils # 0.0 (0.0-0.2) K/mcL Platelet Estimate Normal (Normal) Clumped Platelets (Not Present) Hypochromasia (Not Present) Sodium (136-145) mEq/L Potassium (3.5-4.5) mEq/L Chloride (98-109) mEq/L Carbon Dioxide (19-29) mEq/L BUN (8-26) mg/dL Creatinine (0.72-1.25) mg/dL Est GFR ( Amer) (> 60) Est GFR (Non-Af Amer) (> 60) BUN/Creatinine Ratio (6-26) Glucose (70-99) mg/dL Calculated Osmolality (280-300) Lactic Acid (0.5-2.2) mmol/L Calcium (8.6-10.8) mg/dL Total Bilirubin (0.2-1.2) mg/dL AST (5-34) Units/L ALT (0-55) Units/L Alkaline Phosphatase (38-126) Units/L Troponin I 0.00 (0-0.03) ng/mL Serum Total Protein (6.0-8.3) g/dL Albumin (3.5-5.0) g/dL Globulin (2.4-3.5) g/dL Albumin/Globulin Ratio (1.1-2.2) Urine Color Yellow (Yellow) Urine Clarity Clear (Clear) Urine pH 7.5 (5.0-8.0) pH Units Ur Specific Thornton 1.007 L (1.010-1.025) Urine Protein Negative (Neg-Trace) mg/dL Urine Glucose (UA) Normal (Normal) mg/dL Urine Ketones Negative (Negative) mg/dL Urine Blood Negative (Negative) Urine Nitrite Negative (Negative) Urine Bilirubin Negative (Negative) Urine Urobilinogen Normal (Normal) mg/dL Ur Leukocyte Esterase Negative (Negative) Ur Culture Indicated? NO (NO) 11/03/17 Range/Units 15:59 WBC (4.3-11.1) K/mcL RBC (4.19-5.50) M/mcL Hgb (12.9-16.9) g/dL Hct (37.5-50.1) % MCV (83.0-100.0) fL MCH (28.0-33.3) pg MCHC (31.6-35.5) g/dL RDW (11.5-14.5) % Plt Count (140-400) K/mcL MPV (9.4-12.4) fL Immature Gran % (0-4) % Seg Neutrophils % % Lymphocytes % % Monocytes % % Eosinophils % % Basophils % % Neutrophils # (1.6-8.9) K/mcL Lymphocytes # (0.6-4.6) K/mcL Monocytes # (0.0-1.3) K/mcL Eosinophils # (0.0-0.6) K/mcL Basophils # (0.0-0.2) K/mcL Platelet Estimate (Normal) Clumped Platelets (Not Present) Hypochromasia (Not Present) Sodium 125 L (136-145) mEq/L Potassium 2.7 L (3.5-4.5) mEq/L Chloride 91 L (98-109) mEq/L Carbon Dioxide 24 (19-29) mEq/L BUN 7 L (8-26) mg/dL Creatinine 0.61 L (0.72-1.25) mg/dL Est GFR ( Amer) > 60 (> 60) Est GFR (Non-Af Amer) > 60 (> 60) BUN/Creatinine Ratio 11 (6-26) Glucose 153 H (70-99) mg/dL Calculated Osmolality 261 L (280-300) Lactic Acid (0.5-2.2) mmol/L Calcium 7.6 L (8.6-10.8) mg/dL Total Bilirubin (0.2-1.2) mg/dL AST (5-34) Units/L ALT (0-55) Units/L Alkaline Phosphatase (38-126) Units/L Troponin I (0-0.03) ng/mL Serum Total Protein (6.0-8.3) g/dL Albumin (3.5-5.0) g/dL Globulin (2.4-3.5) g/dL Albumin/Globulin Ratio (1.1-2.2) Urine Color (Yellow) Urine Clarity (Clear) Urine pH (5.0-8.0) pH Units Ur Specific Thornton (1.010-1.025) Urine Protein (Neg-Trace) mg/dL Urine Glucose (UA) (Normal) mg/dL Urine Ketones (Negative) mg/dL Urine Blood (Negative) Urine Nitrite (Negative) Urine Bilirubin (Negative) Urine Urobilinogen (Normal) mg/dL Ur Leukocyte Esterase (Negative) Ur Culture Indicated? (NO) - EKG Data EKG attestation: Yes I reviewed and interpreted this EKG. EKG shows normal: sinus rhythm Rate: normal Rhythm: NSR Interpretation: no acute changes
[2017-06-05 10:39] LABS: Hematocrit 25.5 % (37.5-50.1); Hemoglobin 8.9 g/dL (12.9-16.9); Mean Corpuscular HGB Conc 34.9 g/dL (31.6-35.5); Mean Corpuscular Hemoglobin 31.3 pg (28.0-33.3); Mean Corpuscular Volume 89.8 fL (83.0-100.0); Mean Platelet Volume 7.7 fL (9.4-12.4); Platelet Count 425 K/mcL (140-400); Red Blood Count 2.84 M/mcL (4.19-5.50); Red Cell Distribution Width 13.2 % (11.5-14.5)
[2017-06-05 10:52] LABS: Alanine Aminotransferase 13 Units/L (0-55); Albumin/Globulin Ratio 0.5 (1.1-2.2); Alkaline Phosphatase 71 Units/L (38-126); Aspartate Amino Transferase 14 Units/L (5-34); BUN/Creatinine Ratio 9 (6-26); Bilirubin,Total 0.2 mg/dL (0.2-1.2); Blood Urea Nitrogen 6 mg/dL (8-26); Calcium 8.3 mg/dL (8.6-10.8); Carbon Dioxide 27 mEq/L (19-29); Chloride 87 mEq/L (98-109); Globulin 4.1 g/dL (2.4-3.5); Glucose 157 mg/dL (70-99); Osmolality,Calculated 259 (280-300); Potassium 3.2 mEq/L (3.5-4.5); Sodium 124 mEq/L (136-145); Total Protein 6.1 g/dL (6.0-8.3); eGFR For African Americans > 60 (> 60); eGFR For Non-African Americans > 60 (> 60)
[2017-06-05 11:10] LABS: Monocytes # 1.7 K/mcL (0.0-1.3); Neutrophils # 8.6 K/mcL (1.6-8.9); Platelet Clumps Few (Not Present)
[2017-06-05 11:14] LABS: Hypochromasia Present (Not Present)
[2017-06-05 11:48] LABS: Bilirubin,Urine Negative (Negative); Blood,Urine Negative (Negative); Clarity,Urine Clear (Clear); Color,Urine Yellow (Yellow); Glucose,Urine (UA) Normal (Normal); Ketones,Urine Negative (Negative); Leukocyte Esterase,Urine Negative (Negative); Nitrite,Urine Negative (Negative); PH,Urine 7.5 pH Units (5.0-8.0); Protein,Urine Negative (Neg-Trace); Specific Gravity,Urine 1.007 (1.010-1.025); Urobilinogen,Urine Normal (Normal)
[2017-06-05] MEDS ORDERED: Aminoglycoside Consult 1 EACH MC ONE (12:44)
[2017-06-05] MEDS: 0.9 % Sodium Chloride 1,000 ML IVC SCH (12:50)
[2017-06-05 16:33] LABS: Basophils % 0.3 %; Eosinophils # 0.1 K/mcL (0.0-0.6); Eosinophils % 0.7 %; Hematocrit 22.2 % (37.5-50.1); Lymphocytes # 1.7 K/mcL (0.6-4.6); Lymphocytes % 16.8 %; Mean Corpuscular HGB Conc 33.8 g/dL (31.6-35.5); Mean Corpuscular Hemoglobin 30.4 pg (28.0-33.3); Mean Corpuscular Volume 89.9 fL (83.0-100.0); Mean Platelet Volume 7.8 fL (9.4-12.4); Monocytes # 2.2 K/mcL (0.0-1.3); Monocytes % 21.7 %; Neutrophils # 6.1 K/mcL (1.6-8.9); Platelet Count 362 K/mcL (140-400); Red Blood Count 2.47 M/mcL (4.19-5.50); Red Cell Distribution Width 13.2 % (11.5-14.5); Segmented Neutrophils % 59.5 %
[2017-06-05 16:46] LABS: BUN/Creatinine Ratio 11 (6-26); Blood Urea Nitrogen 7 mg/dL (8-26); Calcium 7.6 mg/dL (8.6-10.8); Carbon Dioxide 24 mEq/L (19-29); Chloride 91 mEq/L (98-109); Glucose 153 mg/dL (70-99); Osmolality,Calculated 261 (280-300); Potassium 2.7 mEq/L (3.5-4.5); Sodium 125 mEq/L (136-145); eGFR For African Americans > 60 (> 60); eGFR For Non-African Americans > 60 (> 60)
[2017-06-05 16:47] LABS: Hemoglobin 7.5 g/dL (12.9-16.9)
[2017-06-05 16:52] LABS: Platelet Estimate Normal (Normal)
--- NOTE | 2017-06-05 17:37 | Electrocardiograph Report ---
[place] [facility] Test Date: 2017-06-05 Pat Name: Abelardo Barfield Department: 102 Room: Gender: M Seamer Panty Hose: : 1955 Requested By: Erwin Mora Order Number: [id number] Reading MD: Dimas Marquez MD Measurements Intervals [place] Rate: 89 P: 69 LA: 144 QRS: 59 QRSD: 86 T: 72 QT: 348 QTc: 394 Interpretive Statements SINUS RHYTHM wnl Electronically Signed On 06-05-2017 17:36:04 EDT by Dimas Marquez MD
[2017-06-05] MEDS ORDERED: Ondansetron 4 MG/2 ML VIAL IVP PRN (19:59)
[2017-06-05] MEDS ORDERED: Acetaminophen 325 MG TABLET PO PRN (19:59)
[2017-06-05] MEDS ORDERED: *HR* HYDROcodone/Acet 5/325 mg TABLET PO PRN (19:59)
[2017-06-05] MEDS ORDERED: Naloxone 0.4 MG/ML INJ IVP PRN (19:59)
[2017-06-05] MEDS ORDERED: Cyanocobalamin (B-12) 1,000 MCG/ML VIAL IM ONE (20:06)
[2017-06-05] MEDS ORDERED: Benzonatate 100 MG CAPSULE PO PRN (20:16)
--- NOTE | 2017-06-05 20:28 | Internal Med History&Physical ---
<Gaurav Llamas - Last Filed: 06/05/17 21:43> Date of Encounter: 06/05/17 Time of Encounter: 19:30 Assessment and Plan (1) Sepsis Current visit: Yes Status: Acute Pt. presents with original WBC of 12.3, HR of 101 bpm, and RR of 24 on admission. Pt. reports generalized weakness but denies recent illness or hospitalization. Initial U/A not indicative for culture. Blood cultures x2 ordered. Initial lactic acid 2.1. Will repeat. IV 0.9 NS started in ED and continued @ 75 mL/HR. IVPB vancomycin with pharmacy dosing and Zosyn 3.375 gm Q8 ordered for infection coverage. Supplemental O2 with titration and SPO2 monitoring. Continuous cardiac telemetry. Pt. to be monitored closely for signs of increasing infection, cardiac, and/or respiratory distress. Patient is at high risk for further morbidity and infection based on current sx, current suspected GI bleed and need for blood transfusions, dx of lung cancer, hx of chemotherapy, and risk factors including previous tobacco abuse. Inpatient. Qualifiers: Sepsis type: sepsis due to unspecified organism Qualified Code(s): A41.9 - Sepsis, unspecified organism (2) Anemia Current visit: Yes Status: Acute Acute anemia with dropping Hgb and Hct today. Hgb in 12's in April. Hgb 8.9 and Hct 25.5 at 10:30 today, followed by Hgb of 7.5 and Hct of 22.2 at 16:00 today. Iron panel and B12 ordered in a.m. labs. B12 IM 1,000 mcg once. Will continue patient's PO B supplements. Fecal hemoccult. H/H Q6HR. Protonix drip. Type and screen ordered and will administer 2 units PRBCs. Continuous cardiac telemetry. GI consult ordered and discussed w/Dr. Stewart. Qualifiers: Anemia type: unspecified type Qualified Code(s): D64.9 - Anemia, unspecified (3) Electrolyte imbalance Current visit: Yes Status: Acute Acute electrolyte imbalance on admission w/ sodium of 125, potassium of 2.7, chloride of 91, and calcium of 7.6. ED administered 0.9 NS @ 75 mL/HR for sodium /chloride. Potassium 40 mEq PO in ED to be followed by 40 mEq PO x2. Calcium carbonate 1,000 mg PO TID. Monitor f/u labs and adjust electrolyte therapy as necessary. Continuous cardiac telemetry. (4) Hyperglycemia Current visit: Yes Status: Acute Acute hyperglycemia with BG of 157. Pt. denies hx of diabetes. BG checks Q6HR. Will consider adding low-dose correction insulin sliding scale w/hypoglycemic protocol if pt. continues to be hyperglycemic. A1c in a.m. labs. (5) Non-small cell carcinoma of right lung Current visit: Yes Status: Chronic Pt. reports dx of non-small cell carcinoma of the right lung in April 2017. States he started chemotherapy three weeks ago at [facility] and is d/t begin radiation therapy soon. Pt. denies receiving tx or being followed by oncology at [place]. F/U w/oncology at [facility]. (6) COPD (chronic obstructive pulmonary disease) Current visit: Yes Status: Chronic Hx of chronic COPD. Stable. Pt. denies SOB but reports cough d/t previous tobacco abuse. Supplemental O2 w/titration and SpO2 monitoring. DuoNebs Q6 scheduled. Tessalon 100 mg TID for cough. Qualifiers: COPD type: emphysema Emphysema type: panlobular Qualified Code(s): J43.1 - Panlobular emphysema (7) DVT prophylaxis Current visit: Yes Status: Acute Bilateral SCDs on LEs for DVT prophylaxis. Pharmacologic DVT prophylaxis indicated due to patient's report of melanotic stool 2 days ago and dropping Hgb and Hct. Internal Medicine - H&P: HPI Chief complaint: Generalized weakness Admitted From: Emergency Dept Plans for Post Hospital Care: Home History of present illness: Mr. Barfield is a 62 year old male with medical hx of non-small cell carcinoma of the right lung, COPD, and HTN presents from the ED with chief complaint of generalized weakness and fatigue for the past two days. Pt. states that he was dx w/lung cancer April 18 and that he started chemotherapy three weeks ago and is d/t begin radiation at [facility]. Pt. reports he smoked 1.5 PPD up until when he was diagnosed and quit. Pt. also reports black stools 2 days ago but no bright blood. He states he is chronically anemic. Patient reports weakness and cough but denies recent illness, nausea, vomiting, fever, chills, abdominal pain, chest pain, palpitations, changes in vision, headache, dizziness, lightheadedness, shortness of breath, diarrhea, constipation, urinary problems, numbness, tingling, pre-syncope, or syncope. Past Med Surg Social Fam HX - Past Medical History Source: patient, old records reviewed Medical history: cancer (Non-small cell carcinoma of the right lung), COPD, hypertension Psychiatric history: no psych history - Past Surgical History Surgical History: no surgical history - Social History Smoking Status: Former smoker Packs per day: 1.5 PPD - Reports quitting 04/18/17 Smokeless Tobacco Status: No Alcohol use: none Drug use: none Current living situation: Home Activity Level: Independent ambulation Recent Out of Country Travel Within the Last 8 Weeks: No Exposure or Possible Exposure to Illness During Travel: No - Family History Father Race: Family Member Ethnicity: Non- Living Status: Age at : 91 Cause of : Old age Hx Family Endocrine Disorder: Yes (DM) Mother Race: Family Member Ethnicity: Non- Living Status: Still Living Hx Family Endocrine Disorder: Yes (DM) Brother Race: Family Member Ethnicity: Non- Living Status: Still Living Hx Family Cardiac Disorders: Yes (HTN) Sister Race: Family Member Ethnicity: Non- Living Status: Still Living Hx Family Endocrine Disorder: Yes (DM) Internal Medicine - H&P: Meds Amlodipine Besylate 10 mg PO DAILY 04/19/17 [History] Metoprolol Succinate 100 mg PO DAILY 04/19/17 [History] Aspirin Enteric Coated [Aspirin EC] 81 mg PO DAILY #30 tablet.dr 04/23/17 [Rx] Folic Acid 1 mg PO DAILY #30 tablet 04/23/17 [Rx] Potassium Chloride [Klor-Con 10] 10 meq PO DAILY #30 tablet.er 04/23/17 [Rx] Simvastatin [Zocor] 40 mg PO HS #30 tablet 04/23/17 [Rx] Thiamine (B-1) [Vitamin B-1] 100 mg PO DAILY #30 tablet 04/23/17 [Rx] Lisinopril [Zestril] 10 mg PO DAILY 04/25/17 [History] Loratadine [Allergy Relief] 10 mg PO DAILY 04/25/17 [History] Nicotine Patch [Nicoderm] 21 mg TD DAILY #14 patch.td24 04/27/17 [Rx] 3 Allergy/AdvReac Type Severity Reaction Status Date / Time losartan [From Cozaar] Allergy See Verified 04/19/17 13:17 Comments All Systems PM: A 10-system review of systems was performed and is negative for pertinent findings except as documented above in the HPI. - Constitutional Constitutional: as per HPI, weakness, no chills, no fever(s), no night sweats - EENT Eyes: no change in vision, no discharge, no pain, no photophobia Ears: no ear discharge, no ear pain, no tinnitus Nose, mouth and throat: no dysphagia, no nasal discharge, no neck pain, no sore throat - Breasts Breasts: as per HPI - Cardiovascular Cardiovascular ROS IM: no chest pain, no diaphoresis, no dyspnea, no lightheadedness, no palpitations, no syncope - Respiratory Respiratory: as per HPI, cough - Gastrointestinal Gastrointestinal: as per HPI, melena, no abdominal pain, no diarrhea, no hematemesis, no hematochezia, no nausea, no vomiting - Genitourinary Genitourinary ROS male: as per HPI - Musculoskeletal Musculoskeletal ROS IM: no numbness, no tingling - Integumentary Integumentary IM: no rash, no unusual bruising - Neurological Neurological ROS: no confusion, no convulsions, no focal weakness, no numbness, no tingling, no tremor(s) - Psychiatric Psychiatric: as per HPI - Endocrine Endocrine IM: as per HPI - Hematologic/Lymphatic Hematologic/Lymphatic: no easy bruising - Allergic/Immunologic Allergic/Immunologic: as per HPI - Constitutional Vitals: Temp Pulse Resp BP Pulse Ox 99.8 F H 101 16 104/57 97 06/05/17 19:03 06/05/17 19:03 06/05/17 19:03 06/05/17 19:03 06/05/17 19:03 General appearance: Present: cooperative, A&O X 3, pleasant, no acute distress, underweight, answers questions appropriately - Head Head exam: Present: atraumatic, normal inspection, normocephalic - Eye Eye exam: Present: PERRL, conjuntiva pink, sclera anicteric Pupils: Present: PERRL - ENT ENT exam: Present: normal exam - Neck Neck exam general surgery: Present: normal inspection, supple, trachea midline. Absent: lymphadenopathy - Respiratory Respiratory exam: Present: decreased breath sounds. Absent: accessory muscle use, rales, rhonchi, wheezes - Cardiovascular Cardiovascular exam: Present: RRR, +S1, +S2. Absent: diastolic murmur, gallop, rubs, systolic murmur - GI/Abdominal GI/Abdominal exam: Present: normal bowel sounds, soft, no peritoneal signs. Absent: distended, tenderness - Rectal Rectal exam: Present: deferred - Additional comments: exam deferred. - Extremities Exam Extremities exam: Present: warm, radial pulses palpable and symmetrical. Absent : calf tenderness, cyanotic, pedal edema - Back Exam Back exam: Present: normal inspection - Neurological Exam Neurological exam: Present: CN II-XII intact, oriented X3, no focal deficits. Absent: pronater drift, facial droop, speech deficit - Psychiatric Psychiatric exam: Present: normal affect, normal mood - Skin Skin exam: Present: dry, intact Internal Med - H&P Results - Labs CBC & Chem 7: 06/05/17 15:59 06/05/17 15:59 - EKG Data EKG shows normal: sinus rhythm Rate: normal - EKG Data Prior EKG available for review: no EKG comments: 06/05/17 20:42 EKG dated 06/05/17 shows sinus rhythm and normal ECG. - Diagnostic Studies Chest x-ray Additional comments: Impressions Chest X-Ray 06/05/17 10:18 IMPRESSION: 1. No acute cardiopulmonary disease. 2. Right upper lobe opacification and volume loss, consistent with postobstructive atelectasis/consolidation secondary to known masses within the right lung. D/ / Tony Davis MD / Tony Davis MD Interpreting Provider: Tony Davis MD CT scan - head Additional comments: Impressions Head CT 06/05/17 10:19 IMPRESSION: 1. No acute intracranial abnormality. 2. Remote right frontal lobe infarct. 3. Bilateral maxillary sinusitis. D/ / Tony Davis MD / Tony Davis MD Interpreting Provider: Tony Davis MD <Casey eHrman - Last Filed: 06/06/17 00:04> Date of Encounter: 06/05/17 Time of Encounter: 22:35 - Constitutional Vitals: Temp Pulse Resp BP Pulse Ox 99.4 F 102 20 107/51 93 06/05/17 23:34 06/05/17 23:34 06/05/17 23:34 06/05/17 23:34 06/05/17 23:34 General appearance: Present: cachectic, cooperative, A&O X 3, pleasant, no acute distress - Head Head exam: Present: atraumatic - Eye Eye exam: Present: EOMI, PERRL. Absent: scleral icterus - Neck Neck exam general surgery: Present: supple - Respiratory Respiratory exam: Present: decreased breath sounds, prolonged expiratory phase. Absent: rales, rhonchi, wheezes - Cardiovascular Cardiovascular exam: Present: RRR, +S1, +S2 - GI/Abdominal GI/Abdominal exam: Present: normal bowel sounds, soft. Absent: hepatomegaly, mass, splenomegaly, tenderness - Extremities Exam Extremities exam: Present: full ROM, warm. Absent: calf tenderness, joint swelling - Back Exam Back exam: Absent: CVA tenderness (L), CVA tenderness (R) - Psychiatric Psychiatric exam: Present: flat affect - Skin Skin exam: Present: dry, warm. Absent: rash Internal Med - H&P Results - Labs CBC & Chem 7: 06/05/17 21:16 06/05/17 15:59 - EKG Data -: EKG Interpreted by Myself EKG shows normal: sinus rhythm Rate: normal - Diagnostic Studies Chest x-ray Status: image reviewed by me (RUL process concerning for post-obstructive pneumonia) - Attending Attestation I discussed the patient [place], PMH, ROS, lab data, and exam findings with Mehul Llamas CNP. I then saw and examined patient independently as well. Although patient meets sepsis criteria, I believe his vitals and findings are more indicative of GI blood loss and symptomatic anemia. I agree with PRBC transfusions and serial H/H with subsequent endoscopy when appropriate. We will treat him for sepsis as it appears he has post-obstructive pneumonia. Presently, patient appears clinically stable. Nonetheless, he will be monitored closely given his suspected GI blood loss and pneumonia/sepsis. Other than my comments above and noted exam findings, I agree with Mehul's assessment and plan.
[2017-06-05] MEDS ORDERED: Pantoprazole 40 MG VIAL IVP SCH (21:00)
[2017-06-05 21:44] LABS: Hematocrit 21.3 % (37.5-50.1); Hemoglobin 7.3 g/dL (12.9-16.9)
[2017-06-05] MEDS: Pantoprazole 80 MG in 0.9 % Sodium Chloride 250 ML IVC SCH (21:51)
[2017-06-05] MEDS ORDERED: Vancomycin 750 MG in D5% in Water 250 ML IVPB ONE (22:00)
[2017-06-05] MEDS: Ipratropium/Albuterol Neb 3 ML IH SCH (22:13)
[2017-06-05] MEDS ORDERED: Vancomycin 750 MG in D5% in Water 250 ML IVPB SCH ×2 (23:00)
[2017-06-05] MEDS ORDERED: 0.9 % Sodium Chloride 250 ML ONE (23:08)
[2017-06-06] MEDS ORDERED: Piperacillin/Tazobactam 3.375 GM in D5% in Water 50 ML IVPB SCH
[2017-06-06] MEDS ORDERED: 0.9 % Sodium Chloride 250 ML ONE (02:37)
[2017-06-06] MEDS: Ipratropium/Albuterol Neb 3 ML IH SCH ×2 (04:11→11:11)
[2017-06-06] MEDS: 0.9 % Sodium Chloride 1,000 ML IVC SCH (06:56)
[2017-06-06 07:22] VITALS: BP 104/47
[2017-06-06] MEDS: Pantoprazole 80 MG in 0.9 % Sodium Chloride 250 ML IVC SCH (08:39)
[2017-06-06 08:42] LABS: Basophils # 0.1 K/mcL (0.0-0.2); Basophils % 0.4 %; Eosinophils # 0.1 K/mcL (0.0-0.6); Eosinophils % 0.4 %; Hematocrit 32.1 % (37.5-50.1); Immature Granulocytes % 1.2 % (0-4); Lymphocytes # 1.8 K/mcL (0.6-4.6); Lymphocytes % 13.8 %; Mean Corpuscular HGB Conc 34.9 g/dL (31.6-35.5); Mean Corpuscular Hemoglobin 30.9 pg (28.0-33.3); Mean Corpuscular Volume 88.7 fL (83.0-100.0); Mean Platelet Volume 7.7 fL (9.4-12.4); Monocytes # 2.6 K/mcL (0.0-1.3); Monocytes % 19.8 %; Neutrophils # 8.3 K/mcL (1.6-8.9); Platelet Count 349 K/mcL (140-400); Red Blood Count 3.62 M/mcL (4.19-5.50); Red Cell Distribution Width 13.6 % (11.5-14.5); Segmented Neutrophils % 64.4 %
[2017-06-06 08:47] LABS: INR 1.2; Prothrombin Time 12.6 Seconds (9.4-12.1)
[2017-06-06 08:49] LABS: Activated Partial Thrombo Time 28.8 Seconds (26.0-36.0)
[2017-06-06 08:59] LABS: Alanine Aminotransferase 12 Units/L (0-55); Albumin 1.9 g/dL (3.5-5.0); Albumin/Globulin Ratio 0.5 (1.1-2.2); Alkaline Phosphatase 72 Units/L (38-126); Aspartate Amino Transferase 15 Units/L (5-34); BUN/Creatinine Ratio 6 (6-26); Bilirubin,Total 0.8 mg/dL (0.2-1.2); Blood Urea Nitrogen 4 mg/dL (8-26); Calcium 8.5 mg/dL (8.6-10.8); Carbon Dioxide 24 mEq/L (19-29); Chloride 95 mEq/L (98-109); Chol/HDL Ratio 2.9 (0-4.9); Cholesterol 94 mg/dL (< 200); Globulin 3.8 g/dL (2.4-3.5); Glucose 106 mg/dL (70-99); HDL Cholesterol 32 mg/dL (40-59); LDL Cholesterol,Calculated 48 mg/dL (0-99); Magnesium 1.2 mg/dL (1.6-2.6); Osmolality,Calculated 263 (280-300); Potassium 3.8 mEq/L (3.5-4.5); Sodium 128 mEq/L (136-145); Total Protein 5.7 g/dL (6.0-8.3); Triglycerides 69 mg/dL (< 150); eGFR For African Americans > 60 (> 60); eGFR For Non-African Americans > 60 (> 60)
[2017-06-06] MEDS ORDERED: Loratadine 10 MG TABLET PO SCH (09:00)
[2017-06-06] MEDS ORDERED: Metoprolol XL (24 HR) Succ 50 MG TAB.ER.24H PO SCH (09:00)
[2017-06-06] MEDS ORDERED: Nicotine 21 MG PATCH.TD24 TD SCH (09:00)
[2017-06-06] MEDS ORDERED: Thiamine (B-1) 100 MG TABLET PO SCH (09:00)
[2017-06-06] MEDS ORDERED: amLODIPine 5 MG TABLET PO SCH (09:00)
[2017-06-06] MEDS ORDERED: Folic Acid 1 MG TABLET PO SCH (09:00)
[2017-06-06] MEDS ORDERED: Aspirin Enteric Coated 81 MG Tablet PO SCH (09:00)
--- NOTE | 2017-06-06 09:06 | Nephrology Consult Note ---
Date of Encounter: 06/06/17 Time of Encounter: 08:50 Assessment and Plan (1) Hyponatremia Current Visit: Yes Status: Chronic Hyponatremia, most likely SIADH component related to lung cancer. Continue current normal saline IV 75cc/hr. Will place on restricted oral fluids 1500cc/ day. Continue to monitor. Replete K. History of Present Illness - Reason for Consult hyponatremia - History of Present Illness Mr. Barfield is a 62 year old male with recent diagnosis of non-small cell carcinoma of right lung. He started chemo approximately three weeks ago at [facility]. Other PMH-COPD and hypertension. He had labs done to begin radiation therapy when his sodium level was noted to be low. He was also experiencing weakness and presented to [facility]. Sodium noted at 124, today 128. He received IV fluids of normal [id number]/hr. Potassium 2.7 and was given oral K+ replacement. K today 3.8. Initial WBC 12.3, blood cultures drawn and started on empiric Vanco and Zosyn. Hgb 8.9 and 7.5, admitted recent dark stools. When reviewing past sodium levels from April, it is noted his sodium level was chronically low, ranging 121-132. Mr. Barfield appears euvolemic. He admits large intake of water on daily basis. He states he eats three regular meals daily. He denies any prior psyche history or psyche medications. Past Med Surg Social Fam HX - Past Medical History Medical history: cancer (Non-small cell carcinoma of the right lung), COPD, hypertension Psychiatric history: no psych history - Past Surgical History Surgical History: no surgical history - Social History Smoking Status: Former smoker Packs per day: 1.5 PPD - Reports quitting 04/18/17 Smokeless Tobacco Status: No Alcohol use: none Drug use: none - Family History Father Race: Family Member Ethnicity: Non- Living Status: Age at : 91 Cause of : Old age Hx Family Cardiac Disorders: Yes Hx Family Endocrine Disorder: Yes (DM) Mother Race: Family Member Ethnicity: Non- Living Status: Still Living Hx Family Respiratory Disorders: Yes Hx Family Endocrine Disorder: Yes (DM) Brother Race: Family Member Ethnicity: Non- Living Status: Still Living Hx Family Cardiac Disorders: Yes (HTN) Sister Race: Family Member Ethnicity: Non- Living Status: Still Living Hx Family Endocrine Disorder: Yes (DM) Medications and Allergies Amlodipine Besylate 10 mg PO DAILY 04/19/17 [History] Metoprolol Succinate 100 mg PO DAILY 04/19/17 [History] Aspirin Enteric Coated [Aspirin EC] 81 mg PO DAILY #30 tablet. 04/23/17 [Rx] Folic Acid 1 mg PO DAILY #30 tablet 04/23/17 [Rx] Potassium Chloride [Klor-Con 10] 10 meq PO DAILY #30 tablet.er 04/23/17 [Rx] Simvastatin [Zocor] 40 mg PO HS #30 tablet 04/23/17 [Rx] Thiamine (B-1) [Vitamin B-1] 100 mg PO DAILY #30 tablet 04/23/17 [Rx] Lisinopril [Zestril] 10 mg PO DAILY 04/25/17 [History] Loratadine [Allergy Relief] 10 mg PO DAILY 04/25/17 [History] Nicotine Patch [Nicoderm] 21 mg TD DAILY #14 patch.td24 04/27/17 [Rx] 3 Allergy/AdvReac Type Severity Reaction Status Date / Time losartan [From Cozaar] Allergy See Verified 04/19/17 13:17 Comments Review of Systems All Systems: reviewed and no additional remarkable complaints except as stated Exam - Vital Signs Vital signs: Initial Vital Signs Temp Pulse Resp BP Pulse Ox 97.9 F 106 20 102/65 99 06/05/17 10:04 06/05/17 10:04 06/05/17 10:04 06/05/17 10:04 06/05/17 10:04 Vital Signs - Last 8 Hours Temp Pulse Resp BP Pulse Ox 06/06/17 07:17 98.4 F 93 18 104/47 98 06/06/17 06:41 99 F 99 18 130/65 95 06/06/17 04:35 99.9 F H 97 16 107/55 96 06/06/17 02:56 98.4 F 97 18 102/57 94 06/06/17 02:47 99.2 F 97 18 113/61 06/06/17 02:38 99.2 F 97 18 113/61 96 Intake and Output 06/05/17 06/06/17 06/06/17 23:59 07:59 15:59 Intake Total 0 / 1000 950 / 950 Output Total 2049 Balance 0 / 1000 -1100 / -1100 Intake: IV Fluids 250 / 250 Protonix 80 MG In 0.9 % Sodium 250 / 250 Chloride 250 ML @ 8 MG/HR 25 mls/hr IVC .Q10H [facility] Rx#: [id number] Blood Product 0 / 0 700 / 700 Rbcs Leuko Poor As-1 Unit 350 / 350 [id number] Rbcs Leuko Poor As-1 Unit 0 / 0 350 / 350 [id number] Output: Urine 2049 - General Appearance General appearance: well-developed, well-nourished, appears started age EENT: mucous membranes moist Neck: no JVD, no carotid bruit Respiratory: clear Cardiology: no edema, regular rate, regular rhythm Gastrointestinal: normoactive bowel sounds, no tenderness, no guarding Integumentary: warm and dry Neurologic: alert and oriented x3 Psychiatric: mood/affect appropriate, cooperative Results - Lab Results 06/05/17 21:16 06/05/17 15:59 Most recent lab results Calcium 7.6 mg/dL (8.6-10.8) L 06/05/17 15:59 Consult Discharge Plan - Plan Referrals: Andre Dodge MD [Primary Care Provider] -
[2017-06-06 09:15] LABS: Hemoglobin 11.2 g/dL (12.9-16.9)
[2017-06-06 09:41] LABS: Hemoglobin A1C 5.6 %
--- NOTE | 2017-06-06 09:48 | Internal Med Progress Note ---
Date of Encounter: 06/06/17 Time of Encounter: 09:44 - Assessment and plan (1) SIRS (systemic inflammatory response syndrome) Current Visit: Yes Status: Acute Assessment and plan: Patient with tachycardia and Leukocytosis which may be related to anemia, suspected GIB His CXR shows a stable lung mass, no infiltrates Patient has no cough or worsening phlegm His chief complain was fatigue and weakness which is possibly due to his anemia We will discontinue Vancomycin and Zosyn for now Follow cultures Symptoms improving with blood transfusion (2) Hypomagnesemia Current Visit: Yes Status: Acute Assessment and plan: Replace with 4g Mag Check Chem am (3) Hypokalemia Current Visit: Yes Status: Acute Assessment and plan: Replaced and improving (4) Hyponatremia Current Visit: Yes Status: Chronic Assessment and plan: Chronic, NA at baseline ranges from 122-128 since 04/18 when his Lung Ca was diagnoses He is asymptomatic and his admitting sodium is at his baseline D/C IVF Nephro input appreciated (5) Anemia Current Visit: Yes Status: Acute Assessment and plan: Acute drop in Hb , suspected due to GIB, s/p 2 units RBCs, continue to monitor Awaiting GI/surgery eval may also be due to new start of chemo Continue to monitor Qualifiers: Anemia type: unspecified type Qualified Code(s): D64.9 - Anemia, unspecified (6) Non-small cell carcinoma of right lung Current Visit: Yes Status: Chronic Assessment and plan: Follow up with Oncologist (7) Sepsis Current Visit: Yes Status: Ruled-out Assessment and plan: Ruled out, see SIRS Qualifiers: Sepsis type: sepsis due to unspecified organism Qualified Code(s): A41.9 - Sepsis, unspecified organism (8) Hyperglycemia Current Visit: Yes Status: Acute Assessment and plan: Nonspecific A1C is 5.6 (9) DVT prophylaxis Current Visit: Yes Status: Acute Assessment and plan: SCDS till GIB is ruled out - Subjective Interval history: Seen and evaluated at bedside Admitted and being managed for Suspected sespsis, Anemia , Hyponatremia, Hypokalemia, He has s PMH of COPD, recent lung CA with recent Chemo, chronic hyponatremia Denies new complains Awaiting Surgery eval - Constitutional Vitals: Temp Pulse Resp BP Pulse Ox 98.4 F 93 18 104/47 98 06/06/17 07:17 06/06/17 07:17 06/06/17 07:17 06/06/17 07:17 06/06/17 07:17 General appearance: Present: cachectic, cooperative, A&O X 3, pleasant, no acute distress - Head Head exam: Present: atraumatic, normocephalic - Eye Eye exam: Present: PERRL, conjuntiva pink, sclera anicteric Pupils: Present: PERRL - Neck Neck exam general surgery: Present: supple, trachea midline. Absent: lymphadenopathy - Respiratory Respiratory exam: Present: CTAB. Absent: accessory muscle use, rales, rhonchi, wheezes - Cardiovascular Cardiovascular exam: Present: RRR, +S1, +S2. Absent: diastolic murmur, gallop, rubs, systolic murmur - GI/Abdominal GI/Abdominal exam: Present: normal bowel sounds, soft, no peritoneal signs. Absent: distended, tenderness - Extremities Exam Extremities exam: Present: warm, radial pulses palpable and symmetrical. Absent : calf tenderness, cyanotic, pedal edema - Neurological Exam Neurological exam: Present: alert, CN II-XII intact, oriented X3, no focal deficits. Absent: pronater drift, facial droop, speech deficit - Skin Skin exam: Present: dry, intact Internal Medicine: Result - Labs CBC & Chem 7: 06/06/17 08:08 06/06/17 08:08 Labs: Short CBC 06/06/17 Range/Units 08:08 WBC 12.9 H (4.3-11.1) K/mcL Hgb 11.2 L D (12.9-16.9) g/dL Hct 32.1 L (37.5-50.1) % Plt Count 349 (140-400) K/mcL BMP 06/06/17 08:08 Sodium 128 L Potassium 3.8 D Chloride 95 L Carbon Dioxide 24 BUN 4 L Creatinine 0.64 L Glucose 106 H Calcium 8.5 L Liver Function 06/06/17 Range/Units 08:08 Total Bilirubin 0.8 D (0.2-1.2) mg/dL AST 15 (5-34) Units/L ALT 12 (0-55) Units/L Alkaline Phosphatase 72 (38-126) Units/L Albumin 1.9 L (3.5-5.0) g/dL - ABG Interpretation ABG results: PT/INR, D-dimer PT 12.6 Seconds (9.4-12.1) H 06/06/17 08:08 Consult Discharge Plan - Plan Referrals: Andre Dodge MD [Primary Care Provider] -
[2017-06-06] MEDS ORDERED: levoFLOXacin 750 MG TABLET PO SCH (10:00)
[2017-06-06 10:44] LABS: % Iron Saturation 32 % (20-55); Iron 56 mcg/dL (65-175); Transferrin 124 mg/dL (174-364)
[2017-06-06 11:04] LABS: Platelet Estimate Normal (Normal)
[2017-06-06 11:05] LABS: Reactive Lymphocytes Present (Not Present)
[2017-06-06] MEDS ORDERED: Magnesium Oxide 400 MG TABLET PO ONE (11:20)
[2017-06-06] MEDS ORDERED: Sucralfate 1 GM TABLET PO SCH (11:30)
--- NOTE | 2017-06-06 14:12 | Event Note ---
Date of Encounter: 06/06/17 Time of Encounter: 14:09 Addendum Patient and his seen at bedside, they report that they do not want the EGD Patient's reports they know he is chronically anemic and hyponatremic and they do not want to have any further interventions I have educated the patient and his about possible complications of an untreated GI bleed. They signed AMA Rest of details is as in the progress note of the same day. 06/06/17
--- NOTE | 2017-06-06 15:31 | General Surgery Consult Note ---
<Adrián Hansen - Last Filed: 06/06/17 16:29> Date of Encounter: 06/06/17 Time of Encounter: 12:00 Assessment and Plan (1) Anemia Status: Acute Patient initially reported that he had generalized weakness upon admission to the hospital. -Hemoglobin on presentation was 8.9. Serial H&H was drawn, subsequent hemoglobin was 7.5 and 7.3. -Patient was given 2 units of packed red blood cells. -Patient's red blood cells increased to 11.2. -Patient will likely not need scoped the present time. -Patient left hospital AMA. Qualifiers: Anemia type: unspecified type Qualified Code(s): D64.9 - Anemia, unspecified History of Present Illness Consult date: 06/06/17 History of present illness: Lico Zhou is a 62 year old male who presented to the ED with the chief complaint of generalized weakness. He has a known history of non-small cell lung cancer. He received his first chemotherapy treatment approximately 3 weeks ago. He notes that 2 days ago, he had dark colored stool. He denied the presence of bright red blood. Patient's hemoglobin was low on the date of admission, and began to drop. He presented with a hemoglobin of 8.9. Serial H& H was drawn. His subsequent hemoglobin levels were 7.5 and 7.3. Patient was transfused with 2 units of packed red blood cells. His hemoglobin increased to 11.2. Patient was seen and examined at bedside this afternoon. He denied having any abdominal pain, fatigue, or weakness. He states that he feels much better than when he did on admission. He reports having a bowel movement approximately 90 minutes prior to examination. He reports that he did not see any blood in his stool, and that it was normal in appearance. He has no complaints at his time. Past Med Surg Social Fam HX - Past Medical History Medical history: cancer (Non-small cell carcinoma of the right lung), COPD, hypertension Psychiatric history: no psych history - Past Surgical History Surgical History: no surgical history - Social History Smoking Status: Former smoker Packs per day: 1.5 PPD - Reports quitting 04/18/17 Smokeless Tobacco Status: No Alcohol use: none Drug use: none - Family History Father Race: Family Member Ethnicity: Non- Living Status: Age at : 91 Cause of : Old age Hx Family Cardiac Disorders: Yes Hx Family Endocrine Disorder: Yes (DM) Mother Race: Family Member Ethnicity: Non- Living Status: Still Living Hx Family Respiratory Disorders: Yes Hx Family Endocrine Disorder: Yes (DM) Brother Race: Family Member Ethnicity: Non- Living Status: Still Living Hx Family Cardiac Disorders: Yes (HTN) Sister Race: Family Member Ethnicity: Non- Living Status: Still Living Hx Family Endocrine Disorder: Yes (DM) Medications and Allergies Amlodipine Besylate 10 mg PO DAILY 04/19/17 [History] Metoprolol Succinate 100 mg PO DAILY 04/19/17 [History] Aspirin Enteric Coated [Aspirin EC] 81 mg PO DAILY #30 tablet.dr 04/23/17 [Rx] Folic Acid 1 mg PO DAILY #30 tablet 04/23/17 [Rx] Potassium Chloride [Klor-Con 10] 10 meq PO DAILY #30 tablet.er 04/23/17 [Rx] Simvastatin [Zocor] 40 mg PO HS #30 tablet 04/23/17 [Rx] Thiamine (B-1) [Vitamin B-1] 100 mg PO DAILY #30 tablet 04/23/17 [Rx] Lisinopril [Zestril] 10 mg PO DAILY 04/25/17 [History] Loratadine [Allergy Relief] 10 mg PO DAILY 04/25/17 [History] Nicotine Patch [Nicoderm] 21 mg TD DAILY #14 patch.[email or web address] 04/27/17 [Rx] 3 Allergy/AdvReac Type Severity Reaction Status Date / Time losartan [From Cozaar] Allergy See Verified 04/19/17 13:17 Comments Review of Systems All systems PM: A 10-system review of systems was performed and is negative for pertinent findings except as documented above in the HPI. - Constitutional no fatigue, no frequent falls, no headache(s), no lethargy, no malaise, no weakness - Cardiovascular no chest pain, no chest pain at rest, no chest pain with activity, no claudication - Respiratory no cough, no dyspnea, no hemoptysis, no dyspnea on exertion, no wheezing - Gastrointestinal no vomiting - Psychiatric no confusion, no mood swings - Endocrine no fatigue General Surgery Exam Initial Vital Signs Temp Pulse Resp BP Pulse Ox 97.9 F 106 20 102/65 99 06/05/17 10:04 06/05/17 10:04 06/05/17 10:04 06/05/17 10:04 06/05/17 10:04 - General physical appearance well developed, well nourished, no distress - Respiratory normal expansion, normal respiratory effort, clear to percussion, clear to auscultation - Cardiovascular Cardiovascular exam: Present: RRR, no murmurs/rubs/gallops - Abdomen Abdomen general surgery: Present: bowel sounds present, soft, non tender - Integumentary Integumentary general surgery: Present: warm and dry, no abnormal pigmentation - Psychiatric Psychiatric general surgery: Present: appropriate, oriented to person, oriented to place, oriented to time, speech is normal, memory intact Exam Initial Vital Signs Temp Pulse Resp BP Pulse Ox 97.9 F 106 20 102/65 99 06/05/17 10:04 06/05/17 10:04 06/05/17 10:04 06/05/17 10:04 06/05/17 10:04 Results - Labs 06/06/17 08:08 06/06/17 08:08 Abnormal lab results WBC 12.9 K/mcL (4.3-11.1) H 06/06/17 08:08 RBC 3.62 M/mcL (4.19-5.50) L 06/06/17 08:08 Hgb 11.2 g/dL (12.9-16.9) L D 06/06/17 08:08 Hct 32.1 % (37.5-50.1) L 06/06/17 08:08 MPV 7.7 fL (9.4-12.4) L 06/06/17 08:08 Monocytes # 2.6 K/mcL (0.0-1.3) H 06/06/17 08:08 Reactive Lymphocytes Present (Not Present) A 06/06/17 08:08 Clumped Platelets Few (Not Present) A 06/05/17 10:25 Hypochromasia Present (Not Present) A 06/05/17 10:25 PT 12.6 Seconds (9.4-12.1) H 06/06/17 08:08 Sodium 128 mEq/L (136-145) L 06/06/17 08:08 Chloride 95 mEq/L (98-109) L 06/06/17 08:08 BUN 4 mg/dL (8-26) L 06/06/17 08:08 Creatinine 0.64 mg/dL (0.72-1.25) L 06/06/17 08:08 Glucose 106 mg/dL (70-99) H 06/06/17 08:08 Calculated Osmolality 263 (280-300) L 06/06/17 08:08 Calcium 8.5 mg/dL (8.6-10.8) L 06/06/17 08:08 Magnesium 1.2 mg/dL (1.6-2.6) L 06/06/17 08:08 Iron 56 mcg/dL (65-175) L 06/06/17 08:08 Transferrin 124 mg/dL (174-364) L 06/06/17 08:08 Serum Total Protein 5.7 g/dL (6.0-8.3) L 06/06/17 08:08 Albumin 1.9 g/dL (3.5-5.0) L 06/06/17 08:08 Globulin 3.8 g/dL (2.4-3.5) H 06/06/17 08:08 Albumin/Globulin Ratio 0.5 (1.1-2.2) L 06/06/17 08:08 HDL Cholesterol 32 mg/dL (40-59) L 06/06/17 08:08 Ur Specific [place] 1.007 (1.010-1.025) L 06/05/17 11:35 Diabetes panel 06/06/17 06/06/17 Range/Units 08:08 08:08 Sodium 128 L (136-145) mEq/L Potassium 3.8 D (3.5-4.5) mEq/L Chloride 95 L (98-109) mEq/L Carbon Dioxide 24 (19-29) mEq/L BUN 4 L (8-26) mg/dL Creatinine 0.64 L (0.72-1.25) mg/dL Glucose 106 H (70-99) mg/dL Hemoglobin A1c 5.6 ( - 5.6) % Calcium 8.5 L (8.6-10.8) mg/dL AST 15 (5-34) Units/L ALT 12 (0-55) Units/L Alkaline Phosphatase 72 (38-126) Units/L Albumin 1.9 L (3.5-5.0) g/dL Triglycerides 69 (< 150) mg/dL HDL Cholesterol 32 L (40-59) mg/dL Calcium panel 06/06/17 Range/Units 08:08 Calcium 8.5 L (8.6-10.8) mg/dL Albumin 1.9 L (3.5-5.0) g/dL Pituitary panel 06/06/17 Range/Units 08:08 Sodium 128 L (136-145) mEq/L Potassium 3.8 D (3.5-4.5) mEq/L Chloride 95 L (98-109) mEq/L Carbon Dioxide 24 (19-29) mEq/L BUN 4 L (8-26) mg/dL Creatinine 0.64 L (0.72-1.25) mg/dL Glucose 106 H (70-99) mg/dL Calcium 8.5 L (8.6-10.8) mg/dL Adrenal panel 06/06/17 Range/Units 08:08 Sodium 128 L (136-145) mEq/L Potassium 3.8 D (3.5-4.5) mEq/L Chloride 95 L (98-109) mEq/L Carbon Dioxide 24 (19-29) mEq/L BUN 4 L (8-26) mg/dL Creatinine 0.64 L (0.72-1.25) mg/dL Glucose 106 H (70-99) mg/dL Calcium 8.5 L (8.6-10.8) mg/dL Total Bilirubin 0.8 D (0.2-1.2) mg/dL AST 15 (5-34) Units/L ALT 12 (0-55) Units/L Alkaline Phosphatase 72 (38-126) Units/L Albumin 1.9 L (3.5-5.0) g/dL All other labs normal. Consult Discharge Plan - Plan Referrals: Andre Dodge MD [Primary Care Provider] - <Erika Stewart - Last Filed: 06/06/17 18:21> Date of Encounter: 06/06/17 Review of Systems All systems PM: A 10-system review of systems was performed and is negative for pertinent findings except as documented above in the HPI. General Surgery Exam Initial Vital Signs Temp Pulse Resp BP Pulse Ox 97.9 F 106 20 102/65 99 06/05/17 10:04 06/05/17 10:04 06/05/17 10:04 06/05/17 10:04 06/05/17 10:04 Exam Initial Vital Signs Temp Pulse Resp BP Pulse Ox 97.9 F 106 20 102/65 99 06/05/17 10:04 06/05/17 10:04 06/05/17 10:04 06/05/17 10:04 06/05/17 10:04 Results - Labs 06/06/17 08:08 06/06/17 08:08 Abnormal lab results WBC 12.9 K/mcL (4.3-11.1) H 06/06/17 08:08 RBC 3.62 M/mcL (4.19-5.50) L 06/06/17 08:08 Hgb 11.2 g/dL (12.9-16.9) L D 06/06/17 08:08 Hct 32.1 % (37.5-50.1) L 06/06/17 08:08 MPV 7.7 fL (9.4-12.4) L 06/06/17 08:08 Monocytes # 2.6 K/mcL (0.0-1.3) H 06/06/17 08:08 Reactive Lymphocytes Present (Not Present) A 06/06/17 08:08 Clumped Platelets Few (Not Present) A 06/05/17 10:25 Hypochromasia Present (Not Present) A 06/05/17 10:25 PT 12.6 Seconds (9.4-12.1) H 06/06/17 08:08 Sodium 128 mEq/L (136-145) L 06/06/17 08:08 Chloride 95 mEq/L (98-109) L 06/06/17 08:08 BUN 4 mg/dL (8-26) L 06/06/17 08:08 Creatinine 0.64 mg/dL (0.72-1.25) L 06/06/17 08:08 Glucose 106 mg/dL (70-99) H 06/06/17 08:08 Calculated Osmolality 263 (280-300) L 06/06/17 08:08 Calcium 8.5 mg/dL (8.6-10.8) L 06/06/17 08:08 Magnesium 1.2 mg/dL (1.6-2.6) L 06/06/17 08:08 Iron 56 mcg/dL (65-175) L 06/06/17 08:08 Transferrin 124 mg/dL (174-364) L 06/06/17 08:08 Serum Total Protein 5.7 g/dL (6.0-8.3) L 06/06/17 08:08 Albumin 1.9 g/dL (3.5-5.0) L 06/06/17 08:08 Globulin 3.8 g/dL (2.4-3.5) H 06/06/17 08:08 Albumin/Globulin Ratio 0.5 (1.1-2.2) L 06/06/17 08:08 HDL Cholesterol 32 mg/dL (40-59) L 06/06/17 08:08 Ur Specific [place] 1.007 (1.010-1.025) L 06/05/17 11:35 Diabetes panel 06/06/17 06/06/17 Range/Units 08:08 08:08 Sodium 128 L (136-145) mEq/L Potassium 3.8 D (3.5-4.5) mEq/L Chloride 95 L (98-109) mEq/L Carbon Dioxide 24 (19-29) mEq/L BUN 4 L (8-26) mg/dL Creatinine 0.64 L (0.72-1.25) mg/dL Glucose 106 H (70-99) mg/dL Hemoglobin A1c 5.6 ( - 5.6) % Calcium 8.5 L (8.6-10.8) mg/dL AST 15 (5-34) Units/L ALT 12 (0-55) Units/L Alkaline Phosphatase 72 (38-126) Units/L Albumin 1.9 L (3.5-5.0) g/dL Triglycerides 69 (< 150) mg/dL HDL Cholesterol 32 L (40-59) mg/dL Calcium panel 06/06/17 Range/Units 08:08 Calcium 8.5 L (8.6-10.8) mg/dL Albumin 1.9 L (3.5-5.0) g/dL Pituitary panel 06/06/17 Range/Units 08:08 Sodium 128 L (136-145) mEq/L Potassium 3.8 D (3.5-4.5) mEq/L Chloride 95 L (98-109) mEq/L Carbon Dioxide 24 (19-29) mEq/L BUN 4 L (8-26) mg/dL Creatinine 0.64 L (0.72-1.25) mg/dL Glucose 106 H (70-99) mg/dL Calcium 8.5 L (8.6-10.8) mg/dL Adrenal panel 06/06/17 Range/Units 08:08 Sodium 128 L (136-145) mEq/L Potassium 3.8 D (3.5-4.5) mEq/L Chloride 95 L (98-109) mEq/L Carbon Dioxide 24 (19-29) mEq/L BUN 4 L (8-26) mg/dL Creatinine 0.64 L (0.72-1.25) mg/dL Glucose 106 H (70-99) mg/dL Calcium 8.5 L (8.6-10.8) mg/dL Total Bilirubin 0.8 D (0.2-1.2) mg/dL AST 15 (5-34) Units/L ALT 12 (0-55) Units/L Alkaline Phosphatase 72 (38-126) Units/L Albumin 1.9 L (3.5-5.0) g/dL All other labs normal. - Attending Attestation patient was seen by resident but left AMA after speaking with hospitalist before I had a chance to see patient
== END 2017-06-06 12:45 | disposition left against medical advice (07) | DRG 194 ==
LOC: 2ANU 10:02 → EMEROO 10:02 → 2ANU 18:13
PROVIDERS: ADMIT Internal Medicine; ATTEND Internal Medicine

== ENCOUNTER 2017-06-23 23:09 | Inpatient (IN) ==
[2017-06-23] MEDS ORDERED: 0.9 % Sodium Chloride 1,000 ML IVC ONE (23:20)
[2017-06-23] MEDS ORDERED: 0.9 % Sodium Chloride 500 ML IVC ONE (23:39)
--- NOTE | 2017-06-23 23:39 | Emergency Department Note ---
Disposition Clinical Impression: Hyponatremia, Hypokalemia, Weakness Lung cancer Qualifiers: Laterality: right Lung location: upper lobe of lung Qualified Code(s): C34.11 - Malignant neoplasm of upper lobe, right bronchus or lung Disposition: Admitted As Inpatient Condition: Good Time of Disposition: 02:39 General Adult HPI - General Chief complaint: ED Shortness of Breath/Dyspnea Stated complaint: "poss pneumonia" Time Seen by Provider: 06/23/17 23:20 Source: patient, EMS Mode of arrival: EMS Limitations: no limitations Nursing Notes Reviewed: Yes Vital Signs Reviewed: Yes - History of Present Illness HPI Narrative: 62-year-old male history of COPD, hypertension, lung cancer currently undergoing chemotherapy presents the ED via EMS for fever and cough. Patient has received 2 rounds of chemotherapy most recent on June 11. His is at bedside 2 called EMS. Since initiating his chemotherapy he has been week and lightheaded and unable to ambulate as well as before. Today he felt warm to the touch and had a temperature of 100.6. He has had intermittent cough the past 2 days and was recently admitted for pneumonia in April 2017. He denies any chest pain, shortness of breath, nausea, vomiting or abdominal pain. Denies any recent travel. Denies any history of blood clots. He denies any recent fall or trauma. He otherwise appears in no acute distress and complains of just his weakness in his legs since the chemotherapy. Currently getting treatment at [facility] at [facility]. Pain Scale: 0 - Related Data Allergies Allergy/AdvReac Type Severity Reaction Status Date / Time losartan [From Daria] Allergy See Verified 06/23/17 23:14 Comments All systems ED: reviewed and negative except as stated. Review of Systems: As Per HPI Constitutional: Reports: fever, weakness. Denies: chills Cardiovascular: Denies: chest pain, dyspnea on exertion Respiratory: Reports: cough. Denies: dyspnea Gastrointestinal: Denies: abdominal pain, nausea, vomiting Genitourinary: Denies: urgency, dysuria Musculoskeletal: Denies: back pain, neck pain Integumentary: Denies: rash, abrasion Neurological: Reports: weakness, abnormal gait. Denies: headache, numbness Psychiatric: Reports: anxiety. Denies: depression Endocrine: Reports: fatigue Past Medical History - Past Medical History Attestation: Yes The following information was validated with the patient. Source: patient, obtained from family Medical history: Reports: cancer, COPD, hypertension Psychiatric history: Reports: no psych history - Social History Smoking Status: Former smoker Alcohol use: Reports: none Drug use: Reports: none Physical Exam - General Limitations: no limitations General appearance: alert, in no apparent distress - Head Head exam: atraumatic, normocephalic, normal inspection - Eye Eye exam: Present: normal appearance, PERRL, EOMI, other (strabismus) - ENT ENT exam: normal exam, normal oropharynx, mucous membranes moist - Neck Neck exam: Present: normal inspection, full ROM, trachea midline - Chest Chest inspection: Present: normal inspection, symmetric chest wall rise - Respiratory Respiratory exam: Present: other (coarse breath sounds bilaterally) - Cardiovascular Cardiovascular exam: Present: regular rate, normal rhythm, normal heart sounds - Abdominal Exam Abdominal exam: Present: soft, Non-Tender, normal bowel sounds. Absent: tenderness, distention, guarding, rebound, rigidity - Extremities Exam Extremities exam: Present: normal inspection, full ROM, normal capillary refill , other (muscle wasting to lower extremities). Absent: tenderness, pedal edema - Expanded Lower Extremity Exam Hip/Pelvis exam: Present: normal inspection, full ROM Upper leg exam: Present: normal inspection, full ROM Knee exam: Present: normal inspection, full ROM Lower leg exam: Present: normal inspection, full ROM Ankle exam: Present: normal inspection, full ROM Foot/toe exam: Present: normal inspection, full ROM Neurovascular/Tendon exam: Present: normal capillary refill. Absent: motor deficit, sensory deficit, tendon deficit - Back Exam Back exam: Present: normal inspection, full ROM. Absent: tenderness, vertebral tenderness - Neurological Exam Neurological exam: Present: alert, oriented X3 - Expanded Neurological Exam Patient oriented to: Present: person, place, time Motor strength - LUE: 5/5 Motor strength - RUE: 5/5 Motor strength - LLE: 5/5 Motor strength - RLE: 5/5 - Skin Skin exam: Present: warm, dry, intact, normal color Course Course Narrative: 62-year-old male with history of lung cancer presents to the ED for weakness, lightheadedness and fever. is at bedside and states is been weak over the past several days unable to get out of bed. He also spiked a temperature of 100.6. Patients afebrile here. However he is tachycardic into. Septic workup initiated due to his immunocompromised state. He is in agreement with this plan. We will start him on a 30 mL per kilo fluid resuscitation. His systolic blood pressure is in the 100s. Disposition pending workup. - Reevaluation(s) Reevaluation #1: Patient continues to be very week. There is some muscle wasting his lower extremities. States since starting chemotherapy he has been unable to get up from bed due to weakness. Is also been reportedly very lightheaded and feelings of passing out when he does get up. Lung sounds or course bilaterally. Chest x-ray shows read demonstration of rights lung mass but no signs of pneumonia. He does not have a leukocytosis. His electrolytes or on the lower side. He has hyponatremia as well as hypokalemia. Unfortunately his account has been incorrectly registered and unable to review his prior labs to compare is baseline. His magnesium is also low 1.1. Will replete magnesium and potassium. He states that he follows with oncologist at [facility] in [place] at [facility]. Due to the document fever at home is tachycardia with concern for possible early sepsis. His lactate is normal 0.9. Will continue to monitor and recommend admission to the hospital for further monitoring. His weakness is likely secondary to his chemo treatment and less likely infection. Also like addresses electrolyte abnormalities as well as his weakness. Patient and family are in agreement with this plan. Impression is weakness, lightheadedness, history of lung cancer, hyponatremia, hypokalemia. - Consultations Consultation #1: Spoke with on-call hospitalist tomi Amaya to admit for weakness, lightheadedness, history of lung cancer, hyponatremia, hypokalemia.. No further orders at this time. No antibiotics indicated at this time. Time: 02:39 Vital Signs Temperature 98.6 F 06/23/17 23:12 Pulse Rate 112 06/23/17 23:12 Respiratory Rate 22 06/23/17 23:12 Blood Pressure 109/85 06/23/17 23:12 O2 Sat by Pulse Oximetry 96 06/23/17 23:12 Temperature 98.7 F 06/24/17 04:30 Pulse Rate 99 06/24/17 04:30 Respiratory Rate 14 06/24/17 04:30 Blood Pressure 126/65 06/24/17 04:30 O2 Sat by Pulse Oximetry 94 06/24/17 04:30 Oxygen Delivery Oxygen Delivery Nasal Cannula Medical Decision Making - Medical Records Medical records reviewed: Yes I reviewed the patient's medical records. - Lab Data Lab results reviewed: Yes I reviewed the patient's lab results. Result diagrams: 06/23/17 23:49 06/23/17 23:49 Lab Results 06/23/17 06/23/17 06/23/17 Range/Units 23:49 23:49 23:49 WBC 9.4 (4.3-11.1) K/mcL RBC 3.19 L (4.19-5.50) M/mcL Hgb 9.7 L (12.9-16.9) g/dL Hct 28.0 L (37.5-50.1) % MCV 87.8 (83.0-100.0) fL MCH 30.4 (28.0-33.3) pg MCHC 34.6 (31.6-35.5) g/dL RDW 13.9 (11.5-14.5) % Plt Count 382 (140-400) K/mcL MPV 7.7 L (9.4-12.4) fL Immature Gran % 0.6 (0-4) % Seg Neutrophils % 58.8 % Lymphocytes % 15.6 % Monocytes % 24.4 % Eosinophils % 0.2 % Basophils % 0.4 % Neutrophils # 5.5 (1.6-8.9) K/mcL Lymphocytes # 1.5 (0.6-4.6) K/mcL Monocytes # 2.3 H (0.0-1.3) K/mcL Eosinophils # 0.0 (0.0-0.6) K/mcL Basophils # 0.0 (0.0-0.2) K/mcL Platelet Estimate Normal (Normal) Poikilocytosis 1+ A (Not Present) PT 14.8 H (9.4-12.1) Seconds INR 1.4 APTT 30.3 (26.0-36.0) Seconds Sodium 123 L (136-145) mEq/L Potassium 3.1 L (3.5-4.5) mEq/L Chloride 86 L (98-109) mEq/L Carbon Dioxide 27 (19-29) mEq/L BUN 7 L (8-26) mg/dL Creatinine 0.60 L (0.72-1.25) mg/dL Est GFR ( Amer) > 60 (> 60) Est GFR (Non-Af Amer) > 60 (> 60) BUN/Creatinine Ratio 12 (6-26) Glucose 108 H (70-99) mg/dL Calculated Osmolality 255 L (280-300) Lactic Acid (0.5-2.2) mmol/L Calcium 8.1 L (8.6-10.8) mg/dL Phosphorus 3.2 (2.3-4.7) mg/dL Magnesium 1.1 L (1.6-2.6) mg/dL Total Bilirubin 0.5 (0.2-1.2) mg/dL Direct Bilirubin 0.3 (0.0-0.5) mg/dL Indirect Bilirubin 0.2 (0.0-1.2) mg/dL AST 30 (5-34) Units/L ALT 33 (0-55) Units/L Alkaline Phosphatase 74 (38-126) Units/L Troponin I (0-0.03) ng/mL Serum Total Protein 5.7 L (6.0-8.3) g/dL Albumin 1.8 L (3.5-5.0) g/dL Globulin 3.9 H (2.4-3.5) g/dL Albumin/Globulin Ratio 0.5 L (1.1-2.2) Urine Color (Yellow) Urine Clarity (Clear) Urine pH (5.0-8.0) pH Units Ur Specific [place] (1.010-1.025) Urine Protein (Neg-Trace) mg/dL Urine Glucose (UA) (Normal) mg/dL Urine Ketones (Negative) mg/dL Urine Blood (Negative) Urine Nitrite (Negative) Urine Bilirubin (Negative) Urine Urobilinogen (Normal) mg/dL Ur Leukocyte Esterase (Negative) Ur Culture Indicated? (NO) 06/23/17 06/23/17 06/24/17 Range/Units 23:49 23:49 02:13 WBC (4.3-11.1) K/mcL RBC (4.19-5.50) M/mcL Hgb (12.9-16.9) g/dL Hct (37.5-50.1) % MCV (83.0-100.0) fL MCH (28.0-33.3) pg MCHC (31.6-35.5) g/dL RDW (11.5-14.5) % Plt Count (140-400) K/mcL MPV (9.4-12.4) fL Immature Gran % (0-4) % Seg Neutrophils % % Lymphocytes % % Monocytes % % Eosinophils % % Basophils % % Neutrophils # (1.6-8.9) K/mcL Lymphocytes # (0.6-4.6) K/mcL Monocytes # (0.0-1.3) K/mcL Eosinophils # (0.0-0.6) K/mcL Basophils # (0.0-0.2) K/mcL Platelet Estimate (Normal) Poikilocytosis (Not Present) PT (9.4-12.1) Seconds INR APTT (26.0-36.0) Seconds Sodium (136-145) mEq/L Potassium (3.5-4.5) mEq/L Chloride (98-109) mEq/L Carbon Dioxide (19-29) mEq/L BUN (8-26) mg/dL Creatinine (0.72-1.25) mg/dL Est GFR ( Amer) (> 60) Est GFR (Non-Af Amer) (> 60) BUN/Creatinine Ratio (6-26) Glucose (70-99) mg/dL Calculated Osmolality (280-300) Lactic Acid 0.9 (0.5-2.2) mmol/L Calcium (8.6-10.8) mg/dL Phosphorus (2.3-4.7) mg/dL Magnesium (1.6-2.6) mg/dL Total Bilirubin (0.2-1.2) mg/dL Direct Bilirubin (0.0-0.5) mg/dL Indirect Bilirubin (0.0-1.2) mg/dL AST (5-34) Units/L ALT (0-55) Units/L Alkaline Phosphatase (38-126) Units/L Troponin I 0.01 (0-0.03) ng/mL Serum Total Protein (6.0-8.3) g/dL Albumin (3.5-5.0) g/dL Globulin (2.4-3.5) g/dL Albumin/Globulin Ratio (1.1-2.2) Urine Color Yellow (Yellow) Urine Clarity Slightly Hazy (Clear) Urine pH 7.5 (5.0-8.0) pH Units Ur Specific [place] 1.015 (1.010-1.025) Urine Protein Trace (Neg-Trace) mg/dL Urine Glucose (UA) Normal (Normal) mg/dL Urine Ketones Negative (Negative) mg/dL Urine Blood Negative (Negative) Urine Nitrite Negative (Negative) Urine Bilirubin Negative (Negative) Urine Urobilinogen Normal (Normal) mg/dL Ur Leukocyte Esterase Negative (Negative) Ur Culture Indicated? NO (NO) - Radiology Data Radiology results reviewed: Yes I reviewed the patient's radiology results. Chest X-Ray 06/23/17 23:20 IMPRESSION: Stable chest with re- demonstration of medial right upper lobe mass with associated post obstructive airspace disease. D/ / Charlie Desai MD / Charlie Desai MD Interpreting Provider: Charlie Desai MD - EKG Data EKG #1 EKG attestation: Yes I reviewed and interpreted this EKG. EKG results narrative: EKG performed 2318 sinus tachycardia 10 7 bpm normal axis, intervals are within normal limits, no ST elevations or depression, no T wave inversion, poor R wave progression. No old EKG for comparison. No acute ischemic changes. Attestation Statement - Attestation Attestation: I, Elvis Gaming MD, personally evaluated this patient and discussed their management with the resident physician. I reviewed the resident's note and agree with the documented findings, medical decision making, and plan of care. 62-year-old male who is currently undergoing chemotherapy for lung cancer presents to the emergency department complaining of severe generalized weakness. reports that his last chemotherapy was a few weeks ago and for the past 9 days he has been unable to even get out of bed and walk around. He has had some increased cough and increased shortness of breath and at home this evening developed a temperature up to 100.6. No chest pain or abdominal pain. No dysuria or frequency. Family also reports that today he is been having spells of passing out. On examination patient is a well-developed thin elderly male in no acute distress. He is alert and oriented 3. There is no cyanosis or diaphoresis. Chest is nontender to palpation. Breath sounds are decreased bilaterally. Heart regular. Abdomen soft with present bowel sounds. No peripheral edema. Lab reviewed. Chest x-ray: Stable chest with re- demonstration of medial right upper lobe mass with associated post obstructive airspace disease. The hospitalist, Dr. Subramanian, was consulted and accepted admission of the patient.
[2017-06-23 23:59] LABS: Basophils % 0.4 %; Eosinophils % 0.2 %; Hemoglobin 9.7 g/dL (12.9-16.9); Immature Granulocytes % 0.6 % (0-4); Lymphocytes # 1.5 K/mcL (0.6-4.6); Lymphocytes % 15.6 %; Mean Corpuscular HGB Conc 34.6 g/dL (31.6-35.5); Mean Corpuscular Hemoglobin 30.4 pg (28.0-33.3); Mean Corpuscular Volume 87.8 fL (83.0-100.0); Mean Platelet Volume 7.7 fL (9.4-12.4); Monocytes # 2.3 K/mcL (0.0-1.3); Monocytes % 24.4 %; Neutrophils # 5.5 K/mcL (1.6-8.9); Platelet Count 382 K/mcL (140-400); Red Blood Count 3.19 M/mcL (4.19-5.50); Red Cell Distribution Width 13.9 % (11.5-14.5); Segmented Neutrophils % 58.8 %
[2017-06-24 00:03] LABS: INR 1.4; Prothrombin Time 14.8 Seconds (9.4-12.1)
[2017-06-24 00:06] LABS: Activated Partial Thrombo Time 30.3 Seconds (26.0-36.0)
[2017-06-24 00:22] LABS: Alanine Aminotransferase 33 Units/L (0-55); Albumin/Globulin Ratio 0.5 (1.1-2.2); Alkaline Phosphatase 74 Units/L (38-126); Aspartate Amino Transferase 30 Units/L (5-34); BUN/Creatinine Ratio 12 (6-26); Bilirubin,Direct 0.3 mg/dL (0.0-0.5); Bilirubin,Indirect 0.2 mg/dL (0.0-1.2); Bilirubin,Total 0.5 mg/dL (0.2-1.2); Blood Urea Nitrogen 7 mg/dL (8-26); Calcium 8.1 mg/dL (8.6-10.8); Carbon Dioxide 27 mEq/L (19-29); Chloride 86 mEq/L (98-109); Globulin 3.9 g/dL (2.4-3.5); Glucose 108 mg/dL (70-99); Magnesium 1.1 mg/dL (1.6-2.6); Osmolality,Calculated 255 (280-300); Phosphorous 3.2 mg/dL (2.3-4.7); Potassium 3.1 mEq/L (3.5-4.5); Sodium 123 mEq/L (136-145); Total Protein 5.7 g/dL (6.0-8.3); eGFR For African Americans > 60 (> 60); eGFR For Non-African Americans > 60 (> 60)
[2017-06-24 00:24] LABS: Platelet Estimate Normal (Normal)
[2017-06-24 00:25] LABS: Poikilocytosis 1+ (Not Present)
[2017-06-24 00:30] LABS: Albumin 1.8 g/dL (3.5-5.0)
[2017-06-24 02:18] LABS: Bilirubin,Urine Negative (Negative); Blood,Urine Negative (Negative); Color,Urine Yellow (Yellow); Glucose,Urine (UA) Normal (Normal); Ketones,Urine Negative (Negative); Leukocyte Esterase,Urine Negative (Negative); Nitrite,Urine Negative (Negative); PH,Urine 7.5 pH Units (5.0-8.0); Protein,Urine Trace mg/dL (Neg-Trace); Specific Gravity,Urine 1.015 (1.010-1.025); Urobilinogen,Urine Normal (Normal)
[2017-06-24 02:21] LABS: Clarity,Urine Slightly Hazy (Clear)
--- NOTE | 2017-06-24 03:55 | Internal Med History&Physical ---
<Batsheva Gandhi - Last Filed: 06/24/17 04:55> Date of Encounter: 06/24/17 Time of Encounter: 03:40 Assessment and Plan (1) Weakness Current visit: Yes Status: Acute Weakness since last chemotherapy treatment June 2017 for lung cancer. He has not been able to get out of bed and complains of dizziness. Most likely related to chemo and anemia. Not likely infectious cause since WBC WNL and afebrile afebrile. vitals stable. Hgb 9.7 no active bleeding low potassium and magnesium CXR- stable medial right upper lobe mass with post obstructive airspace disease U/A negative Could not find more information about the patient's lung cancer in [facility] Plan: consult hem/onc in morning blood cultures pending repeat bmb and cbc consult PT/OT supplement electrolytes as needed (2) Anemia Current visit: Yes Status: Acute Hgb 9.7 uknown baseline Hgb Maybe due to iron deficiency or anemia of chronic disease. 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 Patient and unsure which type and do not know who oncologist is. Received 2 rounds chemo consult Hem/Onc Qualifiers: Laterality: right Lung location: upper lobe of lung Qualified Code(s): C34.11 - Malignant neoplasm of upper lobe, right bronchus or lung (6) DVT prophylaxis Current visit: Yes Status: Acute heparin sq Internal Medicine - H&P: HPI Chief complaint: weakness Admitted From: Home Plans for Post Hospital Care: Home History of present illness: Mr. Barfield is a 62 year old male with a past medical history of lung cancer presented to [facility] ED complaining of weakness since June following his second round of chemotherapy. He stated that since then he has not been able to get out of bed due to weakness and dizziness. He is alongside his who stated that his oncologist instructed him to go to the hospital should he develop a fever. His stated that he had a fever this evening. He admits non productive cough, chills, fever, congestion, dizziness when moving, and blood on toilet paper when wiping . He denies chest pain, confusion, syncope, palpitations, shortness of breathe, abdmoninal pain, nausea, vomiting, melena. He denies recent travel, sick contacts, blood clots, falls. He is a former smoker 1.5 ppd/40yr. His reported that he was admitted a month ago for weakness and it was found that his sodium was low. He is a full code. Past Med Surg Social Fam HX - Past Medical History Medical history: cancer, COPD, hypertension Psychiatric history: no psych history - Social History Smoking Status: Former smoker Alcohol use: none Drug use: none Current living situation: Home - Family History Mother Living Status: Hx Family Cardiac Disorders: No Hx Family Cancer: No Father Living Status: Hx Family Cardiac Disorders: No Hx Family Cancer: No Internal Medicine - H&P: Meds 3 Allergy/AdvReac Type Severity Reaction Status Date / Time losartan [From Cozaar] Allergy See Verified 06/23/17 23:14 Comments All Systems PM: A 10-system review of systems was performed and is negative for pertinent findings except as documented above in the HPI. - Constitutional Constitutional: chills, fever(s), weakness, no falls - EENT Eyes: no change in vision Ears: no ear discharge, no ear pain Nose, mouth and throat: nasal congestion, no dysphagia, no sore throat - Cardiovascular Cardiovascular ROS IM: no chest pain, no palpitations, no syncope - Respiratory Respiratory: cough, no dyspnea, no hemoptysis, no wheezing, no excessive phlegm production - Gastrointestinal Gastrointestinal: constipation, no abdominal pain, no melena, no nausea, no vomiting - Genitourinary Genitourinary ROS male: no dysuria, no hematuria - Neurological Neurological ROS: dizziness, no frequent falls, no headache(s) - Psychiatric Psychiatric: no confusion - Constitutional Vitals: Temp Pulse Resp BP Pulse Ox 98.6 F 96 22 134/74 97 06/23/17 23:12 06/24/17 02:00 06/23/17 23:12 06/24/17 02:00 06/24/17 02:00 General appearance: Present: A&O X 3, pleasant, no acute distress - Head Head exam: Present: atraumatic, normal inspection, normocephalic - Eye Eye exam: Present: conjuntiva pink. Absent: scleral icterus - Respiratory Respiratory exam: Present: CTAB (coarse breathe sounds). Absent: rales, wheezes - Cardiovascular Cardiovascular exam: Present: RRR, +S1, +S2. Absent: clicks, systolic murmur - GI/Abdominal GI/Abdominal exam: Present: normal bowel sounds, soft. Absent: firm, guarding, tenderness - Extremities Exam Extremities exam: Present: normal inspection. Absent: joint swelling, tenderness - Back Exam Back exam: Absent: tenderness - Neurological Exam Neurological exam: Present: alert, oriented X3 - Skin Skin exam: Present: dry, intact Internal Med - H&P Results - Labs CBC & Chem 7: 06/23/17 23:49 06/23/17 23:49 <Olaf Sanches - Last Filed: 06/24/17 06:50> Date of Encounter: 06/24/17 Internal Medicine - H&P: HPI History of present illness: Mr. Barfield is a 62 year old male All Systems PM: A 10-system review of systems was performed and is negative for pertinent findings except as documented above in the HPI. - Constitutional Vitals: Temp Pulse Resp BP Pulse Ox 99.3 F 97 15 130/68 96 06/24/17 06:25 06/24/17 06:25 06/24/17 06:25 06/24/17 06:25 06/24/17 06:25 Internal Med - H&P Results - Labs CBC & Chem 7: 06/23/17 23:49 06/23/17 23:49 - Attending Attestation I examined this patient and my medical decision-making was reviewed with the Resident Physician. I agree with the documented findings, disposition and treatment plan as described except to the extent set forth below. I have seen and examined the patient. Patient is a 62-year-old male with past medical history of lung cancer, COPD and hypertension. He presents to the ED with complaints of generalized weakness. He states symptoms started about 1 week ago and have been gradually worsening. He denies chest pain or shortness of breath. Denies headache or abdominal pain or vomiting. Denies diarrhea. Initial workup is significant for hyponatremia, hypokalemia and hypomagnesemia. Patient is undergoing chemotherapy and his symptoms are likely related to this. No other acute complaints. Patient has been explained about his condition and plan of care. He understood and agreed.
[2017-06-24] MEDS ORDERED: Naloxone 0.4 MG/ML INJ IVP PRN (04:11)
[2017-06-24 06:01] LABS: % Iron Saturation 11 % (20-55); Iron 15 mcg/dL (65-175); Transferrin 101 mg/dL (174-364)
[2017-06-24] MEDS: *HR* Heparin 5,000 UNIT/ML VIAL SQ SCH ×2 (06:39→16:54)
[2017-06-24] MEDS: 0.9 % Sodium Chloride 1,000 ML IVC SCH ×2 (06:39→19:31)
[2017-06-24 06:55] LABS: Ferritin 1862 ng/ml (22-275)
[2017-06-24 10:26] LABS: Hematocrit 26.9 % (37.5-50.1); Hemoglobin 9.1 g/dL (12.9-16.9); Mean Corpuscular HGB Conc 33.8 g/dL (31.6-35.5); Mean Corpuscular Hemoglobin 29.9 pg (28.0-33.3); Mean Corpuscular Volume 88.5 fL (83.0-100.0); Platelet Count 357 K/mcL (140-400); Red Blood Count 3.04 M/mcL (4.19-5.50); Red Cell Distribution Width 14.1 % (11.5-14.5)
[2017-06-24 10:44] LABS: Basophils # 0.2 K/mcL (0.0-0.2); Eosinophils # 0.2 K/mcL (0.0-0.6); Neutrophils # 6.1 K/mcL (1.6-8.9); Platelet Estimate Normal (Normal)
[2017-06-24 10:45] LABS: Polychromasia 1+ (Not Present)
[2017-06-24 10:46] LABS: BUN/Creatinine Ratio 12 (6-26); Blood Urea Nitrogen 7 mg/dL (8-26); Carbon Dioxide 27 mEq/L (19-29); Chloride 90 mEq/L (98-109); Glucose 144 mg/dL (70-99); Magnesium 1.8 mg/dL (1.6-2.6); Osmolality,Calculated 261 (280-300); Potassium 3.3 mEq/L (3.5-4.5); Sodium 125 mEq/L (136-145); eGFR For African Americans > 60 (> 60); eGFR For Non-African Americans > 60 (> 60)
--- NOTE | 2017-06-24 14:18 | Oncology Inp Consult Note ---
<Tamra Knight L - Last Filed: 06/24/17 15:50> Date of Encounter: 06/24/17 Time of Encounter: 12:30 Assessment and Plan (1) Lung cancer Status: Acute Assessment and plan: Mr. Barfield is a patient of the [facility] who is planned to share future care at the [facility] to ease his drive for chemotherapy and upcoming radiation treatments. He has future planned appointments with Dr. Sheppard and Dr. Urena. He has completed 2 cycles of carbo and paclitaxel. This is his second admission since starting treatment for progressive weakness, anemia, hyponatremia, and hypokalemia. He is currently receiving electrolyte replacement, appreciate the help of the hospitalist team. 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 He is mildly anemic with hemoglobin 9.1 and iron deficient with serum iron of 15 and 11% saturation. We will plan for iron replacement ordered per Dr. Perales, please refer to attending attestation below for further details. Qualifiers: Laterality: right Lung location: upper lobe of lung Qualified Code(s): C34.11 - Malignant neoplasm of upper lobe, right bronchus or lung - Data of Consult Requesting Physician: Betito Leone Primary Care Provider: PCP NONE - Consult Narrative Reason for consult: Squamous cell lung cancer History of present illness: Mr. Barfield is a 62 year old male with a past medical history of squamous cell lung cancer, hypokalemia, and hyponatremia. Social history includes 80-pack- year smoking and history of alcohol abuse. He is currently receiving oncology treatment at [facility] under the care of Dr. Sauceda. He was diagnosed with squamous cell lung cancer following a right lung biopsy on 2016. MRI of the brain, followed up with CT of the head negative for malignancy. PET scan on 05/06/2017 showed hypermetabolic mass in the right upper lung without evidence of distant metastatic disease. He has not a good surgical candidate given his extensive emphysema and poor performance status. His plan includes definitive chemoradiation. His first cycle of carbo and paclitaxel was received on 05/22/2017. Following his first cycle he developed progressive weakness and shortness of breath requiring hospitalization along with PRBC transfusion, IV fluids, and electrolyte correction for hynonatremia/ hypokalemia. He received his second cycle on 06/11/2017. He has planned follow- ups at the [facility] with Dr. Tirado and Dr. Urena to begin chemo/ radiation treatments closer to home but will continue to see Dr. aSuceda who will ultimately oversee his care. He is planned to begin radiation in July. A few days following his second cycle of chemotherapy he began to develop progressive weakness and vertigo which eventually led to him not having the strength to get out of bed. He had refused to seek care for his symptoms despite his family's encouragement and eventually began to develop mild confusion along with seizure-like activity when his family insisted that he present to the ER. Upon presentation to the ER she was found to have weakness and electrolyte imbalances with hyponatremia, hypokalemia, hypocalcemia and hypomagnesemia. White blood cells normal slightly anemic with hemoglobin 9.1 and noted iron deficiency. Past Med Surg Social Fam HX - Past Medical History Medical history: cancer, COPD, hypertension Psychiatric history: no psych history - Past Surgical History Surgical History: no surgical history - Social History Smoking Status: Former smoker Alcohol use: none Drug use: none - Family History Mother Living Status: Hx Family Cardiac Disorders: No Hx Family Cancer: No Father Living Status: Hx Family Cardiac Disorders: No Hx Family Cancer: No Medications and Allergies Amlodipine Besylate 10 mg PO DAILY 06/24/17 [History] Aspirin Enteric Coated [Aspirin EC] 81 mg PO DAILY 06/24/17 [History] Folic Acid 1 mg PO DAILY 06/24/17 [History] Lactobacillus Acidophilus [Acidophilus] 1 cap PO DAILY 06/24/17 [History] Lisinopril [Zestril] 10 mg PO DAILY 06/24/17 [History] Loratadine [Allergy Relief] 10 mg PO DAILY 06/24/17 [History] Metoprolol Succinate 100 mg PO DAILY 06/24/17 [History] Potassium Chloride [Klor-Con 10] 10 meq PO DAILY 06/24/17 [History] Simvastatin [Zocor] 40 mg PO HS 06/24/17 [History] Thiamine (B-1) [Vitamin B-1] 100 mg PO DAILY 06/24/17 [History] Thiamine (B-1) [Vitamin B-1] 100 mg PO DAILY 06/24/17 [History] 3 Allergy/AdvReac Type Severity Reaction Status Date / Time losartan [From Cozaar] Allergy See Verified 06/23/17 23:14 Comments Review of systems: Review of systems obtained with help of patient and patient's daughter Constitutional: Present: anorexia, fever(s), lethargy, malaise, weight loss Cardiovascular: Absent: chest pain, edema Respiratory: Present: cough, dyspnea Gastrointestinal: Absent: abdominal pain, change in bowel habits Additional comments: Denies dysuria Musculoskeletal: Present: muscle weakness Neurological: Present: confusion, vertigo, weakness. Absent: frequent falls Endocrine: Present: fatigue Hematologic/Lymphatic: Absent: lymphadenopathy Oncology - Exam - Constitutional Vitals: Temp Pulse Resp BP Pulse Ox 99.3 F 98 17 141/68 95 06/24/17 10:56 06/24/17 10:56 06/24/17 10:56 06/24/17 10:56 06/24/17 10:56 - Head Head exam: Present: atraumatic - Eye Eye exam: Present: normal appearance - ENT ENT exam: Present: mucous membranes moist - Neck Neck exam: Absent: lymphadenopathy - Respiratory Additional comments: Rhonchi noted to right upper lobe, left lung clear to auscultation. - Cardiovascular Cardiovascular exam: Present: RRR. Absent: diastolic murmur, systolic murmur - GI/Abdominal GI/Abdominal exam: Present: normal bowel sounds, soft. Absent: tenderness - Extremities Exam Extremities exam: Absent: pedal edema - Neurological Exam Neurological exam: Present: alert Additional comments: Patient is drowsy but will arouse up when spoken to. - Skin Skin exam: Present: normal color Consult Discharge Plan - Plan Referrals: Andre Dodge MD [Partnered Physician] - <Bg Perales - Last Filed: 06/24/17 17:39> Date of Encounter: 06/24/17 - Data of Consult Requesting Physician: Betito Leone Primary Care Provider: PCP NONE - Consult Narrative History of present illness: Mr. Barfield is a 62 year old male Oncology - Exam - Constitutional Vitals: Temp Pulse Resp BP Pulse Ox 99.3 F 98 17 141/68 95 06/24/17 10:56 06/24/17 10:56 06/24/17 10:56 06/24/17 10:56 06/24/17 10:56 - Attending Attestation I have seen and examined this patient and agree with the assessment and plan set forth by Ms. Knight. This gentleman has a newly diagnosed squamous cell carcinoma of the lung. He is receiving neoadjuvant chemotherapy at the [facility]. The plan is for him to transition to concurrent chemoradiotherapy here at [facility]. Following his second treatment, he developed significant fatigue and generalized weakness. There is no localizing symptom. There is no sign or symptom of underlying infection. He was eating and drinking poorly prior to his hospital stay. Some of his symptomatology is likely related to therapy as well as dehydration. I recommend we continue with hydration and supportive measures. I expect him to recover as the days pass. Patient does have iron deficiency. I ordered one dose of injectafer while hospitalized to replete his iron stores. He has evidence of chronic hyponatremia. This is briefly been evaluated and determined to be secondary to SIADH. Sodium is stable He has significant malnutrition. Ensure 3 times a day has been ordered by the primary team. I will also place an order for nutrition consultation.
--- NOTE | 2017-06-24 20:13 | Electrocardiograph Report ---
[place] [id number] Test Date: 2017-06-23 Pat Name: Abelardo Barfield Department: 104 Room: 3B Gender: M Code Inspector: : [id number] Requested By: Max Luciano Order Number: [id number] Reading MD: Florian Junior MD Measurements Intervals [place] Rate: 107 P: 73 MS: 139 QRS: 63 QRSD: 80 T: 79 QT: 329 QTc: 392 Interpretive Statements SINUS TACHYCARDIA Electronically Signed On 06-24-2017 20:11:58 EST by Florian Junior MD
[2017-06-25 05:25] LABS: Basophils % 0.2 %; Eosinophils % 0.2 %; Immature Granulocytes % 0.6 % (0-4); Lymphocytes # 1.5 K/mcL (0.6-4.6); Lymphocytes % 15.3 %; Mean Corpuscular HGB Conc 34.6 g/dL (31.6-35.5); Mean Corpuscular Hemoglobin 30.6 pg (28.0-33.3); Mean Corpuscular Volume 88.4 fL (83.0-100.0); Mean Platelet Volume 8.1 fL (9.4-12.4); Monocytes # 2.1 K/mcL (0.0-1.3); Monocytes % 21.4 %; Platelet Count 368 K/mcL (140-400); Red Blood Count 2.94 M/mcL (4.19-5.50); Red Cell Distribution Width 13.9 % (11.5-14.5); Segmented Neutrophils % 62.3 %
[2017-06-25 05:43] LABS: BUN/Creatinine Ratio 8 (6-26); Calcium 8.5 mg/dL (8.6-10.8); Carbon Dioxide 29 mEq/L (19-29); Chloride 91 mEq/L (98-109); Glucose 123 mg/dL (70-99); Magnesium 1.5 mg/dL (1.6-2.6); Osmolality,Calculated 262 (280-300); Potassium 2.6 mEq/L (3.5-4.5); Sodium 127 mEq/L (136-145); eGFR For African Americans > 60 (> 60); eGFR For Non-African Americans > 60 (> 60)
[2017-06-25 05:44] LABS: Blood Urea Nitrogen 4 mg/dL (8-26)
[2017-06-25] MEDS: *HR* Heparin 5,000 UNIT/ML VIAL SQ SCH ×2 (05:50→18:42)
[2017-06-25 05:55] LABS: Platelet Estimate Normal (Normal)
[2017-06-25] MEDS: Loratadine 10 MG TABLET PO SCH (09:12)
[2017-06-25] MEDS: Metoprolol XL (24 HR) Succ 50 MG TAB.ER.24H PO SCH (09:12)
[2017-06-25] MEDS: Folic Acid 1 MG TABLET PO SCH (09:12)
[2017-06-25] MEDS: Lactobacillus 1 EACH CAP.SPRINK PO SCH (09:12)
[2017-06-25] MEDS: amLODIPine 5 MG TABLET PO SCH (09:12)
[2017-06-25] MEDS: Aspirin Enteric Coated 81 MG Tablet PO SCH (09:13)
[2017-06-25] MEDS: Thiamine (B-1) 100 MG TABLET PO SCH (09:13)
[2017-06-25] MEDS: 0.9 % Sodium Chloride 1,000 ML IVC SCH (09:14)
--- NOTE | 2017-06-25 19:23 | Internal Med Progress Note ---
Date of Encounter: 06/25/17 Time of Encounter: 13:00 - Assessment and plan (1) Weakness Current Visit: Yes Status: Acute Assessment and plan: -Suspect secondary to chemotherapy treatment for lung cancer. (2) Anemia Current Visit: Yes Status: Acute Assessment and plan: -Stable; continue to monitor. Qualifiers: Anemia type: unspecified type Qualified Code(s): D64.9 - Anemia, unspecified (3) Hyponatremia Current Visit: Yes Status: Acute Assessment and plan: -Hyponatremia is gradually improving; continue to monitor. (4) Hypokalemia Current Visit: Yes Status: Acute Assessment and plan: -Hypokalemia with a potassium of 3.2 today; replacements ordered (5) Lung cancer Current Visit: Yes Status: Acute Assessment and plan: -Management by accounting clerks supervisor oncologist as outpatient. Qualifiers: Laterality: right Lung location: upper lobe of lung Qualified Code(s): C34.11 - Malignant neoplasm of upper lobe, right bronchus or lung (6) DVT prophylaxis Current Visit: Yes Status: Acute Assessment and plan: Subcutaneous heparin - Subjective Interval history: No acute events overnight. - Constitutional Vitals: Temp Pulse Resp BP Pulse Ox 99.1 F 90 16 112/53 93 06/25/17 18:45 06/25/17 18:45 06/25/17 18:45 06/25/17 18:45 06/25/17 18:45 General appearance: Present: A&O X 3, pleasant, no acute distress - Cardiovascular Cardiovascular exam: Present: RRR, +S1, +S2. Absent: diastolic murmur, gallop, rubs, systolic murmur Internal Medicine: Result - Labs CBC & Chem 7: 06/25/17 04:19 06/25/17 16:50 Labs: Short CBC 06/25/17 Range/Units 04:19 WBC 9.6 (4.3-11.1) K/mcL Hgb 9.0 L (12.9-16.9) g/dL Hct 26.0 L (37.5-50.1) % Plt Count 368 (140-400) K/mcL Neutrophils # 6.0 (1.6-8.9) K/mcL BMP 06/25/17 06/25/17 04:19 16:50 Sodium 127 L Potassium 2.6 L 3.2 L Chloride 91 L Carbon Dioxide 29 BUN 4 L Creatinine 0.53 L Glucose 123 H Calcium 8.5 L - ABG Interpretation ABG results: PT/INR, D-dimer PT 14.8 Seconds (9.4-12.1) H 06/23/17 23:49 Consult Discharge Plan - Plan Referrals: Andre Dodge MD [Partnered Physician] -
[2017-06-26] MEDS: 0.9 % Sodium Chloride 1,000 ML IVC SCH ×2 (05:40→16:37)
[2017-06-26] MEDS: *HR* Heparin 5,000 UNIT/ML VIAL SQ SCH ×2 (05:40→16:37)
[2017-06-26] MEDS: Loratadine 10 MG TABLET PO SCH (09:19)
[2017-06-26] MEDS: Metoprolol XL (24 HR) Succ 50 MG TAB.ER.24H PO SCH (09:20)
[2017-06-26] MEDS: Lactobacillus 1 EACH CAP.SPRINK PO SCH (09:20)
[2017-06-26] MEDS: Aspirin Enteric Coated 81 MG Tablet PO SCH (09:20)
[2017-06-26] MEDS: Folic Acid 1 MG TABLET PO SCH (09:20)
[2017-06-26] MEDS: amLODIPine 5 MG TABLET PO SCH (09:20)
[2017-06-26] MEDS: Thiamine (B-1) 100 MG TABLET PO SCH (09:26)
--- NOTE | 2017-06-26 10:19 | Oncology Inp Progress Note ---
Date of Encounter: 06/26/17 Time of Encounter: 12:00 (1) Lung cancer Current Visit: Yes Status: Acute Assessment and plan: Squamous cell without distant mets, s/p carbotaxol x2 (at [facility]), last one last , admitted with wkness, AMS, hyponatremia electrolyte abnormalities that have improved. Overall poorly tolerated chemotherapy. Wt loss due to malignancy-taking supplements. PT/OT once patient is able to. Will follow at out pt clinic for further RX Qualifiers: Laterality: right Lung location: upper lobe of lung Qualified Code(s): C34.11 - Malignant neoplasm of upper lobe, right bronchus or lung Oncology: Subj Interval history: Feeling better, still weak - Constitutional Vitals: Vital Signs Temp Pulse Resp BP Pulse Ox 06/26/17 06:39 98.8 F 92 17 107/56 94 06/26/17 03:48 98.5 F 97 16 121/68 91 06/25/17 23:48 98.6 F 102 18 123/62 91 06/25/17 18:45 99.1 F 90 16 112/53 93 Intake and Output 06/25/17 06/26/17 06/26/17 23:59 07:59 15:59 Intake Total 300 / 300 1000 / 1000 Output Total 575 / 575 700 / 700 Balance -275 / -275 300 / 300 Intake: IV Fluids 300 / 300 1000 / 1000 0.9 % Sodium Chloride 1,000 ML 1000 / 1000 @ 80 mls/hr IVC .[id number] FARNAZ Rx #:[id number] Potassium Chloride 10 mEq/100mL 300 / 300 10 meq In 100 ml @ 100 mls/hr IVPB Q1H FARNAZ Rx#:[id number] Output: Urine 575 / 575 700 / 700 Other: Weight 46.494 kg Patient Weight 06/26/17 23:59 Weight 46.494 kg General appearance: thin - Head Head exam: Present: atraumatic, normal inspection - Eye Eye exam: Present: sclera anicteric - ENT ENT exam: Present: mucous membranes moist - Respiratory Respiratory exam: Present: CTAB - Cardiovascular Cardiovascular exam: Present: +S1, +S2 - GI/Abdominal GI/Abdominal exam: Present: normal bowel sounds, soft - Extremities Exam Extremities exam: Present: normal inspection Oncology: Obj Data - Labs CBC & Chem 7: 06/25/17 04:19 06/25/17 16:50 Labs: Laboratory Results - last 24 hr 06/25/17 16:50 Potassium 3.2 L - ABG Interpretation ABG results: PT/INR, D-dimer PT 14.8 Seconds (9.4-12.1) H 06/23/17 23:49 Consult Discharge Plan - Plan Referrals: Andre Dodge MD [Partnered Physician] -
[2017-06-26 10:52] LABS: Basophils % 0.3 %; Eosinophils % 0.3 %; Hematocrit 25.5 % (37.5-50.1); Hemoglobin 8.7 g/dL (12.9-16.9); Immature Granulocytes % 0.8 % (0-4); Lymphocytes # 1.6 K/mcL (0.6-4.6); Lymphocytes % 15.9 %; Mean Corpuscular HGB Conc 34.1 g/dL (31.6-35.5); Mean Corpuscular Hemoglobin 30.4 pg (28.0-33.3); Mean Corpuscular Volume 89.2 fL (83.0-100.0); Mean Platelet Volume 7.8 fL (9.4-12.4); Monocytes # 1.9 K/mcL (0.0-1.3); Monocytes % 19.2 %; Platelet Count 323 K/mcL (140-400); Red Blood Count 2.86 M/mcL (4.19-5.50); Red Cell Distribution Width 14.2 % (11.5-14.5); Segmented Neutrophils % 63.5 %
[2017-06-26 11:04] LABS: BUN/Creatinine Ratio 9 (6-26); Calcium 8.3 mg/dL (8.6-10.8); Carbon Dioxide 28 mEq/L (19-29); Chloride 90 mEq/L (98-109); Glucose 130 mg/dL (70-99); Osmolality,Calculated 259 (280-300); Potassium 2.7 mEq/L (3.5-4.5); Sodium 125 mEq/L (136-145); eGFR For African Americans > 60 (> 60); eGFR For Non-African Americans > 60 (> 60)
[2017-06-26 11:10] LABS: Blood Urea Nitrogen 5 mg/dL (8-26)
[2017-06-26 11:18] LABS: Neutrophils # 6.4 K/mcL (1.6-8.9)
[2017-06-26 13:02] LABS: Magnesium 1.2 mg/dL (1.6-2.6)
--- NOTE | 2017-06-26 19:07 | Internal Med Progress Note ---
Date of Encounter: 06/26/17 Time of Encounter: 11:00 - Assessment and plan (1) Weakness Current Visit: Yes Status: Acute Assessment and plan: -Suspect secondary to chemotherapy treatment for lung cancer. (2) Anemia Current Visit: Yes Status: Acute Assessment and plan: -Stable; continue to monitor. Qualifiers: Anemia type: unspecified type Qualified Code(s): D64.9 - Anemia, unspecified (3) Hyponatremia Current Visit: Yes Status: Acute Assessment and plan: -Hyponatremia is gradually improving; continue to monitor. (4) Hypokalemia Current Visit: Yes Status: Acute Assessment and plan: -replacements ordered (5) Lung cancer Current Visit: Yes Status: Acute Assessment and plan: -Management by pot fisher oncologist as outpatient. Qualifiers: Laterality: right Lung location: upper lobe of lung Qualified Code(s): C34.11 - Malignant neoplasm of upper lobe, right bronchus or lung (6) DVT prophylaxis Current Visit: Yes Status: Acute Assessment and plan: Subcutaneous heparin - Subjective Interval history: No acute events overnight. - Constitutional Vitals: Temp Pulse Resp BP Pulse Ox 98.6 F 97 18 106/55 93 06/26/17 18:58 06/26/17 18:58 06/26/17 18:58 06/26/17 18:58 06/26/17 18:58 General appearance: Present: A&O X 3, pleasant, no acute distress Internal Medicine: Result - Labs CBC & Chem 7: 06/26/17 10:38 06/26/17 10:38 Labs: Short CBC 06/26/17 Range/Units 10:38 WBC 10.0 (4.3-11.1) K/mcL Hgb 8.7 L (12.9-16.9) g/dL Hct 25.5 L (37.5-50.1) % Plt Count 323 (140-400) K/mcL Neutrophils # 6.4 (1.6-8.9) K/mcL BMP 06/26/17 10:38 Sodium 125 L Potassium 2.7 L Chloride 90 L Carbon Dioxide 28 BUN 5 L Creatinine 0.55 L Glucose 130 H Calcium 8.3 L - ABG Interpretation ABG results: PT/INR, D-dimer PT 14.8 Seconds (9.4-12.1) H 06/23/17 23:49 Consult Discharge Plan - Plan Referrals: Andre Dodge MD [Partnered Physician] -
[2017-06-27] MEDS: 0.9 % Sodium Chloride 1,000 ML IVC SCH (08:43)
[2017-06-27] MEDS: Aspirin Enteric Coated 81 MG Tablet PO SCH (08:44)
[2017-06-27] MEDS: Loratadine 10 MG TABLET PO SCH (08:44)
[2017-06-27] MEDS: Thiamine (B-1) 100 MG TABLET PO SCH (08:44)
[2017-06-27] MEDS: Metoprolol XL (24 HR) Succ 50 MG TAB.ER.24H PO SCH (08:44)
[2017-06-27] MEDS: Lactobacillus 1 EACH CAP.SPRINK PO SCH (08:44)
[2017-06-27] MEDS: amLODIPine 5 MG TABLET PO SCH (08:44)
[2017-06-27] MEDS: Folic Acid 1 MG TABLET PO SCH (08:44)
[2017-06-27] MEDS: *HR* Heparin 5,000 UNIT/ML VIAL SQ SCH (08:51)
[2017-06-27 09:18] LABS: Hematocrit 25.8 % (37.5-50.1); Hemoglobin 8.8 g/dL (12.9-16.9); Immature Granulocytes % 1.1 % (0-4); Immature Platelets 0.8 % (1.1-6.1); Lymphocytes % 18.8 %; Mean Corpuscular HGB Conc 34.1 g/dL (31.6-35.5); Mean Corpuscular Hemoglobin 30.3 pg (28.0-33.3); Mean Platelet Volume 7.6 fL (9.4-12.4); Platelet Count 418 K/mcL (140-400); Red Cell Distribution Width 14.5 % (11.5-14.5)
[2017-06-27 09:19] LABS: Basophils % 0.3 %; Eosinophils % 0.4 %; Lymphocytes # 1.9 K/mcL (0.6-4.6); Monocytes % 19.4 %; Neutrophils # 6.2 K/mcL (1.6-8.9)
[2017-06-27 09:58] LABS: BUN/Creatinine Ratio 11 (6-26); Blood Urea Nitrogen 6 mg/dL (8-26); Calcium 8.4 mg/dL (8.6-10.8); Carbon Dioxide 26 mEq/L (19-29); Chloride 93 mEq/L (98-109); Glucose 105 mg/dL (70-99); Magnesium 1.7 mg/dL (1.6-2.6); Osmolality,Calculated 260 (280-300); Potassium 3.1 mEq/L (3.5-4.5); Sodium 126 mEq/L (136-145); eGFR For African Americans > 60 (> 60); eGFR For Non-African Americans > 60 (> 60)
[2017-06-27 12:04] VITALS: BP 105/55
--- NOTE | 2017-06-27 13:21 | Discharge Summary ---
Date of Encounter: 06/27/17 Time of Encounter: 11:00 - Discharge Diagnosis (1) Weakness Priority: Primary Status: Acute (2) Anemia Priority: Secondary Status: Acute Qualifiers: Anemia type: unspecified type Qualified Code(s): D64.9 - Anemia, unspecified (3) Hyponatremia Priority: Primary Status: Acute (4) Hypokalemia Priority: Secondary Status: Acute (5) Lung cancer Priority: Secondary Status: Acute Qualifiers: Laterality: right Lung location: upper lobe of lung Qualified Code(s): C34.11 - Malignant neoplasm of upper lobe, right bronchus or lung - Discharge Medications Prescriptions: Potassium Chloride 40 meq PO DAILY #30 tab.er.prt Home Medications: Amlodipine Besylate 10 mg PO DAILY 06/24/17 [History] Aspirin Enteric Coated [Aspirin EC] 81 mg PO DAILY 06/24/17 [History] Folic Acid 1 mg PO DAILY 06/24/17 [History] Lactobacillus Acidophilus [Acidophilus] 1 cap PO DAILY 06/24/17 [History] Lisinopril [Zestril] 10 mg PO DAILY 06/24/17 [History] Loratadine [Allergy Relief] 10 mg PO DAILY 06/24/17 [History] Metoprolol Succinate 100 mg PO DAILY 06/24/17 [History] Simvastatin [Zocor] 40 mg PO HS 06/24/17 [History] Thiamine (B-1) [Vitamin B-1] 100 mg PO DAILY 06/24/17 [History] Thiamine (B-1) [Vitamin B-1] 100 mg PO DAILY 06/24/17 [History] Potassium Chloride 40 meq PO DAILY #30 tab.er.prt 06/27/17 [Rx] Allergies/Adverse Reactions: 3 Allergy/AdvReac Type Severity Reaction Status Date / Time losartan [From Cozaar] Allergy See Verified 06/23/17 23:14 Comments Date of admission: 06/24/17 10:36 Primary care physician: PCP NONE Consults: 06/24/17 13:12 Consult to Bruise Trimmer [CONS] Routine Reason for SW Consult: ecf placement 06/24/17 17:38 Consult to Nutrition [CONS] Routine Comment: Consulting Provider: NUTRITION Reason for Dietary Consult: PO Supplementation - Patient Status Disposition: Home Health Service Condition: Good - Discharge Instructions Follow Up With: Andre Dodge MD [Partnered Physician] - Additional Instructions: Labs: monitor potassium, sodium and magnesium Hospital course: Patient is a 62-year-old male with past medical history significant for 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 Patient has been complaining of weakness since June 11, 2017 following his second round of chemotherapy. He stated that since then he has not been able to get out of bed due to weakness and dizziness. He is a former smoker 1.5 ppd / 40yr. His reported that he was admitted a month ago for weakness and it was found that his sodium was low. Patient was admitted to the medical floor for further monitoring and evaluation. During patients hospital stay he was found to have acute on chronic hyponatremia which was gradually corrected. Patient also with hypokalemia and hypomagnesemia which improved with supplementation. Hematology/oncology was consulted and attributed weakness to decreased by mouth secondary to malignancy. Recommendations for placement at senior care facility but family elects to take patient home with home health. Patient will be discharged to follow up with primary care provider. - Time Spent with Patient Total time spent providing and/or coordinating discharge services: Less than 30 minutes - Constitutional Vitals: Temp Pulse Resp BP Pulse Ox 98.4 F 89 16 105/55 98 06/27/17 12:03 06/27/17 12:03 06/27/17 12:03 06/27/17 12:03 06/27/17 12:03 General appearance: Present: A&O X 3, pleasant, no acute distress - Cardiovascular Cardiovascular exam: Present: RRR, +S1, +S2. Absent: diastolic murmur, gallop, rubs, systolic murmur
--- NOTE | 2017-06-27 15:36 | Physician Discharge Referral ---
Home Health/Hosp Referral Info Transfer to: Home Health - Diagnosis (1) Weakness Priority: Primary Status: Acute (2) Anemia Status: Acute (3) Hyponatremia Status: Acute (4) Hypokalemia Status: Acute (5) Lung cancer Status: Acute - Respiratory Orders Smoking Cessation: Smoking cessation has been advised. For more information, call the [place] Tobacco Quit Line at 8-649-GAWN-NOW. - Services Needed Home Care Orders: Labs: monitor potassium, sodium and magnesium - Transfer Medications Prescriptions: Potassium Chloride 40 meq PO DAILY #30 tab.er.prt Home Medications: Amlodipine Besylate 10 mg PO DAILY 06/24/17 [History] Aspirin Enteric Coated [Aspirin EC] 81 mg PO DAILY 06/24/17 [History] Folic Acid 1 mg PO DAILY 06/24/17 [History] Lactobacillus Acidophilus [Acidophilus] 1 cap PO DAILY 06/24/17 [History] Lisinopril [Zestril] 10 mg PO DAILY 06/24/17 [History] Loratadine [Allergy Relief] 10 mg PO DAILY 06/24/17 [History] Metoprolol Succinate 100 mg PO DAILY 06/24/17 [History] Simvastatin [Zocor] 40 mg PO HS 06/24/17 [History] Thiamine (B-1) [Vitamin B-1] 100 mg PO DAILY 06/24/17 [History] Thiamine (B-1) [Vitamin B-1] 100 mg PO DAILY 06/24/17 [History] Potassium Chloride 40 meq PO DAILY #30 tab.er.prt 06/27/17 [Rx] Allergies/Adverse Reactions: 3 Allergy/AdvReac Type Severity Reaction Status Date / Time losartan [From Cozaar] Allergy See Verified 06/23/17 23:14 Comments Certification: Further, I certify that my clinical findings support that this patient is homebound (i.e. absences from home require considerable and taxing effort and are for medical reasons or taoist services or infrequently or short duration when for other reasons) because: Homebound Reason: Patient requires assistance of a person or device to safely leave home Attestation: My signature below is to certify that this patient is under my care and that I, or nurse practitioner, or a physician's assistant professor of nursing working with me, has a face-to -face encounter with this patient.
== END 2017-06-27 16:40 | disposition home health service (06) | DRG 181 ==
LOC: 3BNU 23:09 → EMEROO 23:09 → SUATTDRO 06-24 02:45 → 3BNU 06-24 03:00 → MERGE 06-24 10:36
PROVIDERS: ADMIT Internal Medicine; ATTEND Hospitalist

== ENCOUNTER 2017-09-11 10:40 | Inpatient (IN) ==
[~2017-09-11 10:40] MED LIST: *HR* EPINEPHrine 1 MG/10 ML SYRINGE IVP ONE; *HR* Etomidate 20 MG/10 ML AMPUL IVP ONE; *HR* Midazolam HCl 2 MG/2 ML VIAL IV ONE; *HR* Midazolam HCl 5 MG/5 ML VIAL IVP ONE
[2017-09-11] MEDS ORDERED: Ipratropium/Albuterol Neb 3 ML IH ONE ×2 (10:41→10:50)
[2017-09-11] MEDS ORDERED: methylPREDNISolone 125 MG/2 ML VIAL IVP ONE (10:41)
--- NOTE | 2017-09-11 10:46 | Emergency Department Note ---
Disposition Clinical Impression: Seizure Respiratory failure Qualifiers: Chronicity: acute Respiratory failure complication: hypoxia Qualified Code(s): J96.01 - Acute respiratory failure with hypoxia Lung cancer Qualifiers: Laterality: unspecified laterality Lung location: upper lobe of lung Qualified Code(s): C34.10 - Malignant neoplasm of upper lobe, unspecified bronchus or lung Pneumonia Qualifiers: Pneumonia type: due to unspecified organism Laterality: right Lung location: upper lobe of lung Qualified Code(s): J18.1 - Lobar pneumonia, unspecified organism Disposition: Admitted As Inpatient Condition: Critical Referrals: Andre Dodge MD [Primary Care Provider] - Forms: ED Satisfaction Letter Time of Disposition: 12:46 SOB HPI - General Chief Complaint: ED Shortness of Breath/Dyspnea Stated Complaint: JOSE LUIS Time Seen by Provider: 09/11/17 10:41 Source: patient, EMS Mode of arrival: EMS Limitations: no limitations Nursing Notes Reviewed: Yes Vital Signs Reviewed: Yes - History of Present Illness 62-year-old with history of lung cancer comes in complaining of increasing shortness of breath. Pt Subjective Complaint: shortness of breath Onset (ago): [employer] Context: other (Lung cancer) Severity: moderate Consistency/Duration: constant Improves with: nothing Worsens with: nothing Known history of: COPD, other (Lung cancer) Associated symptoms: Reports: cough, wheezing, sputum production Treatment prior to arrival: oxygen Cough Description: Involuntary Cough Frequency: Intermittent - Related Data Home Medications Medication Instructions Recorded Confirmed Aspirin Enteric Coated [Aspirin EC] 81 mg PO DAILY 06/24/17 09/11/17 Lactobacillus Acidophilus 1 cap PO DAILY 06/24/17 09/11/17 [Acidophilus] Loratadine [Allergy Relief] 10 mg PO DAILY 06/24/17 09/11/17 Simvastatin [Zocor] 40 mg PO HS 06/24/17 09/11/17 Thiamine (B-1) [Vitamin B-1] 100 mg PO DAILY 06/24/17 09/11/17 Magnesium 250 mg PO DAILY 07/06/17 09/11/17 Dexamethasone [Decadron] 4 mg PO DAILY 09/11/17 09/11/17 Mirtazapine [Remeron] 30 mg PO DAILY 09/11/17 09/11/17 Pantoprazole Sodium 40 mg PO DAILY 09/11/17 09/11/17 Paroxetine HCl [Paxil] 10 mg PO DAILY 09/11/17 09/11/17 Sulfamethoxazole/Trimeth DS 1 tab PO 3XW 09/11/17 09/11/17 [Bactrim DS] Previous Rx's Medication Instructions Recorded Folic Acid 1 mg PO DAILY #30 tablet 04/23/17 Megestrol Acetate [Megace] 20 ml PO DAILY #600 mls 07/06/17 Ondansetron HCl [Zofran] 4 mg PO Q8H #60 tablet 07/09/17 Potassium Chloride 20 meq PO BID #14 tab.er.prt 07/31/17 Albuterol Sulfate [Albuterol 2 puff IH Q4HR PRN #1 hfa.aer.ad 08/08/17 Inhaler] levoFLOXacin [Levaquin] 750 mg PO DAILY #4 tablet 08/08/17 Allergies Allergy/AdvReac Type Severity Reaction Status Date / Time losartan [From Cozaar] Allergy See Verified 07/29/17 10:06 Comments All systems ED: reviewed and negative except as stated. Constitutional: Denies: fever, chills, weakness, weight change Eyes: Denies: eye pain, eye discharge, vision change ENT ED: Denies: ear pain, throat pain, dental pain, hearing loss, epistaxis, congestion, dysphagia Cardiovascular: Denies: chest pain, palpitations, dyspnea on exertion, edema, syncope Respiratory: Reports: cough, dyspnea, wheezes. Denies: hemoptysis, stridor Gastrointestinal: Denies: abdominal pain, nausea, vomiting, diarrhea, constipation, hematemesis, melena, hematochezia Genitourinary: Denies: urgency, dysuria, frequency, hematuria Musculoskeletal: Denies: back pain, neck pain, arthralgia, myalgia Integumentary: Denies: rash, abrasion, lesions Neurological: Denies: headache, weakness, numbness, paresthesias, confusion, abnormal gait, vertigo Psychiatric: Denies: anxiety, depression, suicidal thoughts, homicidal thoughts , auditory hallucinations, visual hallucinations Endocrine: Denies: fatigue Hematological/Lymphatic: Denies: easy bleeding, easy bruising Allergic/Immunologic: Denies: facial swelling, urticaria Past Medical History - Past Medical History Medical history: Reports: hypertension, cancer, COPD Surgical history: Reports: no surgical history Psychiatric history: Reports: no psych history - Social History Smoking Status: Former smoker Smokeless Tobacco Status: No Alcohol use: Reports: none Drug use: Reports: none Physical Exam - General Limitations: no limitations General appearance: alert, in no apparent distress - Head Head exam: atraumatic, normocephalic, normal inspection - Eye Eye exam: Present: normal appearance, PERRL, EOMI - ENT ENT exam: normal exam, normal oropharynx, mucous membranes moist - Neck Neck exam: Present: normal inspection, full ROM, trachea midline - Chest Chest inspection: Present: normal inspection, symmetric chest wall rise - Respiratory Respiratory exam: Present: wheezes, accessory muscle use, prolonged expiratory phase - Cardiovascular Cardiovascular exam: Present: regular rate, normal rhythm, normal heart sounds - Abdominal Exam Abdominal exam: Present: soft, Non-Tender. Absent: tenderness, distention, guarding, rebound, rigidity - Extremities Exam Extremities exam: Present: normal inspection, full ROM. Absent: tenderness, pedal edema - Expanded Lower Extremity Exam Neurovascular/Tendon exam: Absent: motor deficit, sensory deficit, tendon deficit Gait: observed and normal - Back Exam Back exam: Present: normal inspection, full ROM. Absent: tenderness - Neurological Exam Neurological exam: Present: alert, oriented X3 - Psychiatric Psychiatric exam: Present: normal affect, normal mood - Skin Skin exam: Present: warm, dry, intact, normal color Course - Reevaluation(s) Reevaluation #1: Patient suffered a grand mal seizure pulse ox was down into the low 70s with respiratory distress. Patient was intubated with good breath sounds bilaterally , pulse ox 100%. Time: 11:13 Reevaluation #2: 52-year-old with a history of lung cancer has not been able to get treatment due to being ill with pneumonia with progression of the symptoms with increasing shortness of breath. CT shows an enlarging tumor with postobstructive changes. Patient was intubated patient will be admitted to the ICU. Time: 12:51 - Consultations Consultation #1: Discussed with Dr. Mi, admit. Time: 12:46 Vital Signs Temperature 97.1 F L 09/11/17 10:42 Pulse Rate 110 09/11/17 10:42 Respiratory Rate 22 09/11/17 10:42 Blood Pressure 143/128 09/11/17 10:42 O2 Sat by Pulse Oximetry 90 09/11/17 10:42 Temperature 97.1 F L 09/11/17 10:42 Pulse Rate 95 09/11/17 12:23 Respiratory Rate 14 09/11/17 12:23 Blood Pressure 169/99 09/11/17 12:23 O2 Sat by Pulse Oximetry 100 09/11/17 12:23 Oxygen Delivery Oxygen Delivery Ventilator Shortness of Breath/Dyspnea - Lab Data Lab results reviewed: Yes I reviewed the patient's lab results. Result diagrams: 09/11/17 11:03 09/11/17 11:03 Lab Results 09/11/17 09/11/17 09/11/17 Range/Units 11:03 11: 11:03 WBC 19.7 H (4.3-11.1) K/mcL RBC 3.89 L (4.19-5.50) M/mcL Hgb 11.9 L (12.9-16.9) g/dL Hct 37.2 L (37.5-50.1) % MCV 95.6 (83.0-100.0) fL MCH 30.6 (28.0-33.3) pg MCHC 32.0 (31.6-35.5) g/dL RDW 16.9 H (11.5-14.5) % Plt Count 370 (140-400) K/mcL MPV 8.0 L (9.4-12.4) fL Immature Gran % 1.6 (0-4) % Seg Neutrophils % 77.6 % Lymphocytes % 14.1 % Monocytes % 6.0 % Eosinophils % 0.3 % Basophils % 0.4 % Neutrophils # 15.3 H (1.6-8.9) K/mcL Lymphocytes # 2.8 (0.6-4.6) K/mcL Monocytes # 1.2 (0.0-1.3) K/mcL Eosinophils # 0.1 (0.0-0.6) K/mcL Basophils # 0.1 (0.0-0.2) K/mcL ABG pH (7.32-7.45) pH Units ABG pCO2 (35-45) mmHg ABG pO2 (85-104) mmHg ABG HCO3 (21-27) mEq/L ABG Total CO2 (20-26) mEq/L ABG O2 Saturation (95-98) % ABG Base Excess (-2 to 3) mEq/L Respiration Rate O2 Delivery Device Blood Gas Modality Inspired O2 (1-15=lpm [id number]=%) Tidal Volume cc PEEP cm H2O Sodium 131 L (136-145) mEq/L Potassium 3.7 (3.5-5.1) mEq/L Chloride 93 L (98-107) mEq/L Carbon Dioxide 25 (23-29) mEq/L BUN 15 (8-23) mg/dL Creatinine 0.61 L (0.70-1.30) mg/dL Est GFR ( Amer) > 60 (> 60) Est GFR (Non-Af Amer) > 60 (> 60) BUN/Creatinine Ratio 25 (6-26) Glucose 105 (70-105) mg/dL Calculated Osmolality 273 L (280-300) Lactic Acid 6.3 H* (0.5-2.2) mmol/L Calcium 8.4 L (8.6-10.3) mg/dL Troponin I (< 0.04) ng/mL B-Natriuretic Peptide (Less than 100) pg/mL Urine Color (Yellow) Urine Clarity (Clear) Urine pH (5.0-8.0) pH Units Ur Specific [place] (1.010-1.025) Urine Protein (Neg-Trace) mg/dL Urine Glucose (UA) (Normal) mg/dL Urine Ketones (Negative) mg/dL Urine Blood (Negative) Urine Nitrite (Negative) Urine Bilirubin (Negative) Urine Urobilinogen (Normal) mg/dL Ur Leukocyte Esterase (Negative) Urine Microscopic RBC (0-3) per hpf Urine Microscopic WBC (0-3) per hpf Ur Squamous Epith Cells (None-Few) per lpf Urine Bacteria (None-Few) per hpf Hyaline Casts (None-Few) per lpf Ur Culture Indicated? (NO) 09/11/17 09/11/17 09/11/17 Range/Units 11:03 11:03 11:42 WBC (4.3-11.1) K/mcL RBC (4.19-5.50) M/mcL Hgb (12.9-16.9) g/dL Hct (37.5-50.1) % MCV (83.0-100.0) fL MCH (28.0-33.3) pg MCHC (31.6-35.5) g/dL RDW (11.5-14.5) % Plt Count (140-400) K/mcL MPV (9.4-12.4) fL Immature Gran % (0-4) % Seg Neutrophils % % Lymphocytes % % Monocytes % % Eosinophils % % Basophils % % Neutrophils # (1.6-8.9) K/mcL Lymphocytes # (0.6-4.6) K/mcL Monocytes # (0.0-1.3) K/mcL Eosinophils # (0.0-0.6) K/mcL Basophils # (0.0-0.2) K/mcL ABG pH 7.49 H (7.32-7.45) pH Units ABG pCO2 37 (35-45) mmHg ABG pO2 489 H (85-104) mmHg ABG HCO3 28 H (21-27) mEq/L ABG Total CO2 29 H (20-26) mEq/L ABG O2 Saturation 100 H (95-98) % ABG Base Excess 5 H (-2 to 3) mEq/L Respiration Rate 14 O2 Delivery Device Adult Vent Blood Gas Modality ASSIST CONTROL Inspired O2 100.0 (1-15=lpm [id number]=%) Tidal Volume 450 cc PEEP 5 cm H2O Sodium (136-145) mEq/L Potassium (3.5-5.1) mEq/L Chloride (98-107) mEq/L Carbon Dioxide (23-29) mEq/L BUN (8-23) mg/dL Creatinine (0.70-1.30) mg/dL Est GFR ( Amer) (> 60) Est GFR (Non-Af Amer) (> 60) BUN/Creatinine Ratio (6-26) Glucose (70-105) mg/dL Calculated Osmolality (280-300) Lactic Acid (0.5-2.2) mmol/L Calcium (8.6-10.3) mg/dL Troponin I < 0.03 (< 0.04) ng/mL B-Natriuretic Peptide 167 H (Less than 100) pg/mL Urine Color (Yellow) Urine Clarity (Clear) Urine pH (5.0-8.0) pH Units Ur Specific [place] (1.010-1.025) Urine Protein (Neg-Trace) mg/dL Urine Glucose (UA) (Normal) mg/dL Urine Ketones (Negative) mg/dL Urine Blood (Negative) Urine Nitrite (Negative) Urine Bilirubin (Negative) Urine Urobilinogen (Normal) mg/dL Ur Leukocyte Esterase (Negative) Urine Microscopic RBC (0-3) per hpf Urine Microscopic WBC (0-3) per hpf Ur Squamous Epith Cells (None-Few) per lpf Urine Bacteria (None-Few) per hpf Hyaline Casts (None-Few) per lpf Ur Culture Indicated? (NO) 09/11/17 Range/Units 12:35 WBC (4.3-11.1) K/mcL RBC (4.19-5.50) M/mcL Hgb (12.9-16.9) g/dL Hct (37.5-50.1) % MCV (83.0-100.0) fL MCH (28.0-33.3) pg MCHC (31.6-35.5) g/dL RDW (11.5-14.5) % Plt Count (140-400) K/mcL MPV (9.4-12.4) fL Immature Gran % (0-4) % Seg Neutrophils % % Lymphocytes % % Monocytes % % Eosinophils % % Basophils % % Neutrophils # (1.6-8.9) K/mcL Lymphocytes # (0.6-4.6) K/mcL Monocytes # (0.0-1.3) K/mcL Eosinophils # (0.0-0.6) K/mcL Basophils # (0.0-0.2) K/mcL ABG pH (7.32-7.45) pH Units ABG pCO2 (35-45) mmHg ABG pO2 (85-104) mmHg ABG HCO3 (21-27) mEq/L ABG Total CO2 (20-26) mEq/L ABG O2 Saturation (95-98) % ABG Base Excess (-2 to 3) mEq/L Respiration Rate O2 Delivery Device Blood Gas Modality Inspired O2 (1-15=lpm [id number]=%) Tidal Volume cc PEEP cm H2O Sodium (136-145) mEq/L Potassium (3.5-5.1) mEq/L Chloride (98-107) mEq/L Carbon Dioxide (23-29) mEq/L BUN (8-23) mg/dL Creatinine (0.70-1.30) mg/dL Est GFR ( Amer) (> 60) Est GFR (Non-Af Amer) (> 60) BUN/Creatinine Ratio (6-26) Glucose (70-105) mg/dL Calculated Osmolality (280-300) Lactic Acid (0.5-2.2) mmol/L Calcium (8.6-10.3) mg/dL Troponin I (< 0.04) ng/mL B-Natriuretic Peptide (Less than 100) pg/mL Urine Color Yellow (Yellow) Urine Clarity Cloudy A (Clear) Urine pH 7.5 (5.0-8.0) pH Units Ur Specific [place] 1.025 (1.010-1.025) Urine Protein Negative (Neg-Trace) mg/dL Urine Glucose (UA) Normal (Normal) mg/dL Urine Ketones Negative (Negative) mg/dL Urine Blood Negative (Negative) Urine Nitrite Negative (Negative) Urine Bilirubin Negative (Negative) Urine Urobilinogen Normal (Normal) mg/dL Ur Leukocyte Esterase Negative (Negative) Urine Microscopic RBC 3-5 H (0-3) per hpf Urine Microscopic WBC 0-3 (0-3) per hpf Ur Squamous Epith Cells Many H (None-Few) per lpf Urine Bacteria None Seen (None-Few) per hpf Hyaline Casts None Seen (None-Few) per lpf Ur Culture Indicated? NO (NO) - Radiology Data Radiology results reviewed: Yes I reviewed the patient's radiology results. Chest X-Ray 09/11/17 10:41 IMPRESSION: 1. ET tube 2.7 cm above the pawan. 2. Improved aeration of the right lung base. 3. Right upper lobe mass, which was recently evaluated with CT. D/ / Tony Davis MD / Tony Davsi MD Interpreting Provider: Tony Davis MD Chest CTA 09/11/17 11:12 IMPRESSION: 1. No evidence of pulmonary embolism 2. Right hilar mass felt to have increased in size. There is been progressive right upper lobe atelectasis, with persistent postobstructive parenchymal disease in the right upper lobe 3. Interval improvement in appearance of right lower lobe pneumonia and resolution of right-sided pleural effusion. No new pulmonary abnormality 4. Advanced pulmonary emphysema D/ / Aubrey Shetty MD / Aubrey Shetty MD Interpreting Provider: Aubrey Shetty MD Head CT 09/11/17 11:12 IMPRESSION: 1. No acute intracranial abnormality. 2. No evidence of metastatic disease in the brain. 3. Stable remote infarcts and chronic small vessel ischemic changes. D/ / Tony Davis MD / Tony Davis MD Interpreting Provider: Tony Davis MD X-ray and CT scans were reviewed. - EKG Data EKG attestation: Yes I reviewed and interpreted this EKG. EKG shows normal: Reports: sinus rhythm Rate: Reports: normal Rhythm: Reports: NSR Interpretation: Reports: no acute changes Critical Care Time Critical Care Time: Yes Total Critical Care Time: 95 Attestation: The high probability of a clinically significant, sudden or life threatening deterioration of the [respiratory, neurological] system(s) required my full and direct attention, intervention and personal management. The aggregate critical care time was [95] minutes. This time is in addition to time spent performing reported procedures but includes the following: [x] Data Review and interpretation [x] Patient assessment and monitoring of vital signs [x] Documentation [x] Medication orders and management
[2017-09-11] MEDS ORDERED: *HR* LORazepam 2 MG/ML VIAL IVP ONE (10:55)
[2017-09-11] MEDS ORDERED: *HR* FentaNYL (PF) 100 MCG/2 ML VIAL ONE ×3 (10:58→13:11)
[2017-09-11] MEDS ORDERED: *HR* Etomidate 20 MG/10 ML AMPUL IVP ONE (11:11)
[2017-09-11 11:13] LABS: Basophils # 0.1 K/mcL (0.0-0.2); Basophils % 0.4 %; Eosinophils # 0.1 K/mcL (0.0-0.6); Eosinophils % 0.3 %; Hematocrit 37.2 % (37.5-50.1); Hemoglobin 11.9 g/dL (12.9-16.9); Immature Granulocytes % 1.6 % (0-4); Lymphocytes # 2.8 K/mcL (0.6-4.6); Lymphocytes % 14.1 %; Mean Corpuscular Hemoglobin 30.6 pg (28.0-33.3); Mean Corpuscular Volume 95.6 fL (83.0-100.0); Monocytes # 1.2 K/mcL (0.0-1.3); Neutrophils # 15.3 K/mcL (1.6-8.9); Platelet Count 370 K/mcL (140-400); Red Blood Count 3.89 M/mcL (4.19-5.50); Red Cell Distribution Width 16.9 % (11.5-14.5); Segmented Neutrophils % 77.6 %
--- NOTE | 2017-09-11 11:16 | Emergency Department Note ---
Disposition Clinical Impression: Seizure Respiratory failure Qualifiers: Chronicity: acute Respiratory failure complication: hypoxia Qualified Code(s): J96.01 - Acute respiratory failure with hypoxia Lung cancer Qualifiers: Laterality: unspecified laterality Lung location: unspecified part of lung Qualified Code(s): C34.90 - Malignant neoplasm of unspecified part of unspecified bronchus or lung Disposition: Still a Patient Condition: Critical Referrals: Andre Dodge MD [Primary Care Provider] - Forms: ED Satisfaction Letter Time of Disposition: 11:32 General Adult HPI - General Chief complaint: ED Shortness of Breath/Dyspnea Stated complaint: JOSE LUIS Time Seen by Provider: 09/11/17 10:41 Source: patient, EMS Mode of arrival: EMS Limitations: no limitations - History of Present Illness Pain Scale: 0 - Related Data Home Medications Medication Instructions Recorded Confirmed Aspirin Enteric Coated [Aspirin EC] 81 mg PO DAILY 06/24/17 09/11/17 Lactobacillus Acidophilus 1 cap PO DAILY 06/24/17 09/11/17 [Acidophilus] Loratadine [Allergy Relief] 10 mg PO DAILY 06/24/17 09/11/17 Simvastatin [Zocor] 40 mg PO HS 06/24/17 09/11/17 Thiamine (B-1) [Vitamin B-1] 100 mg PO DAILY 06/24/17 09/11/17 Magnesium 250 mg PO DAILY 07/06/17 09/11/17 Dexamethasone [Decadron] 4 mg PO DAILY 09/11/17 09/11/17 Mirtazapine [Remeron] 30 mg PO DAILY 09/11/17 09/11/17 Pantoprazole Sodium 40 mg PO DAILY 09/11/17 09/11/17 Paroxetine HCl [Paxil] 10 mg PO DAILY 09/11/17 09/11/17 Sulfamethoxazole/Trimeth DS 1 tab PO 3XW 09/11/17 09/11/17 [Bactrim DS] Previous Rx's Medication Instructions Recorded Folic Acid 1 mg PO DAILY #30 tablet 04/23/17 Megestrol Acetate [Megace] 20 ml PO DAILY #600 mls 07/06/17 Ondansetron HCl [Zofran] 4 mg PO Q8H #60 tablet 07/09/17 Potassium Chloride 20 meq PO BID #14 tab.er.prt 07/31/17 Albuterol Sulfate [Albuterol 2 puff IH Q4HR PRN #1 hfa.aer.ad 08/08/17 Inhaler] levoFLOXacin [Levaquin] 750 mg PO DAILY #4 tablet 08/08/17 Allergies Allergy/AdvReac Type Severity Reaction Status Date / Time losartan [From Cozaar] Allergy See Verified 07/29/17 10:06 Comments Constitutional: Denies: fever, chills, weakness, weight change Eyes: Denies: eye pain, eye discharge, vision change ENT ED: Denies: ear pain, throat pain, dental pain, hearing loss, epistaxis, congestion, dysphagia Cardiovascular: Denies: chest pain, palpitations, dyspnea on exertion, edema, syncope Respiratory: Reports: cough, dyspnea, wheezes. Denies: hemoptysis, stridor Gastrointestinal: Denies: abdominal pain, nausea, vomiting, diarrhea, constipation, hematemesis, melena, hematochezia Genitourinary: Denies: urgency, dysuria, frequency, hematuria Musculoskeletal: Denies: back pain, neck pain, arthralgia, myalgia Integumentary: Denies: rash, abrasion, lesions Neurological: Denies: headache, weakness, numbness, paresthesias, confusion, abnormal gait, vertigo Psychiatric: Denies: anxiety, depression, suicidal thoughts, homicidal thoughts , auditory hallucinations, visual hallucinations Endocrine: Denies: fatigue Hematological/Lymphatic: Denies: easy bleeding, easy bruising Allergic/Immunologic: Denies: facial swelling, urticaria Past Medical History - Past Medical History Medical history: Reports: hypertension, cancer, COPD Surgical history: Reports: no surgical history Psychiatric history: Reports: no psych history - Social History Smoking Status: Former smoker Smokeless Tobacco Status: No Alcohol use: Reports: none Drug use: Reports: none Physical Exam - General Limitations: no limitations General appearance: alert, in no apparent distress Course Vital Signs Temperature 97.1 F L 09/11/17 10:42 Pulse Rate 110 09/11/17 10:42 Respiratory Rate 22 09/11/17 10:42 Blood Pressure 143/128 09/11/17 10:42 O2 Sat by Pulse Oximetry 90 09/11/17 10:42 Temperature 97.1 F L 09/11/17 10:42 Pulse Rate 101 09/11/17 11:06 Respiratory Rate 22 09/11/17 10:42 Blood Pressure 148/104 09/11/17 11:06 O2 Sat by Pulse Oximetry 100 09/11/17 11:06 Oxygen Delivery Oxygen Delivery Ventilator Procedures - Intubation sedative: Etomidate Mg Given: 20 Laryngoscope: Hieu ET Tube Size: 7.5 ET Tube Uncuffed: No Tube Secured Depth (cm): 22 Tube Secured Location: lips Tube Placement Confirmation: visualized tube passing through cords, equal breath sounds bilaterally, no breath sounds over epigastrium, confirmation by capnometry Patient Tolerated Procedure: well Intubation Complications: none Medical Decision Making - Lab Data Result diagrams: 09/11/17 11:03 Attestation Statement - Attestation Attestation: I, Floyd Melton DO, examined this patient [id number] and my medical decision-making was reviewed with Dr. Sergey Anton), Resident Physician. I agree with the documented findings, disposition and treatment plan as described except to the extent set forth below. Please see my progress notes for details. Clinical history a 62-year-old male presented to the emergency room. My only involvement in the care of this patient was an assistance to Dr. Erwin Mora. Assisted with destabilization of the airway. The resident physician completed intubation by direct laryngoscopy with one attempt and no complications. The ET tube is seen passing through the cords on a consultation. Endotracheal tube was placed at 22 cm at the lip. Bilateral ventilation was noted. Patient maintained pulse ox is in pressure throughout the entire event. Patient is still critically ill. Postprocedural chest x-ray confirms approximately 3 cm above the pawan with normal aeration and distribution. The remainder of the course of care will be completed by Dr. Mora. Again only direct involvement was in the intubation. See procedure note present physician's documentation. No other concerns or issues.
[2017-09-11] MEDS ORDERED: *HR* Midazolam HCl 2 MG/2 ML VIAL IVP ONE (11:25)
[2017-09-11] MEDS ORDERED: 0.9 % Sodium Chloride 1,000 ML ONE (11:42)
[2017-09-11] MEDS ORDERED: 0.9 % Sodium Chloride 1,000 ML IVC ONE ×3 (11:42→21:13)
[2017-09-11 11:44] LABS: BUN/Creatinine Ratio 25 (6-26); Blood Urea Nitrogen 15 mg/dL (8-23); Calcium 8.4 mg/dL (8.6-10.3); Carbon Dioxide 25 mEq/L (23-29); Chloride 93 mEq/L (98-107); Glucose 105 mg/dL (70-105); Osmolality,Calculated 273 (280-300); Potassium 3.7 mEq/L (3.5-5.1); Sodium 131 mEq/L (136-145); eGFR For African Americans > 60 (> 60); eGFR For Non-African Americans > 60 (> 60)
[2017-09-11 11:48] LABS: ABG Base Excess 5 mEq/L (-2 to 3); ABG HCO3 28 mEq/L (21-27); ABG Oxygen Saturation 100 % (95-98); ABG PCO2 37 mmHg (35-45); ABG PH 7.49 pH Units (7.32-7.45); ABG PO2 489 mmHg (85-104); ABG TCO2 29 mEq/L (20-26); Blood Gas Modality ASSIST CONTROL; Blood Gas PEEP 5 cm H2O; Blood Gas Respiration Rate 14; Blood Gas VT 450 cc
[2017-09-11] MEDS ORDERED: Vancomycin 1,000 MG in D5% in Water 250 ML IVPB ONE (11:50)
[2017-09-11] MEDS ORDERED: Piperacillin/Tazobactam 3.375 GM in Water for inj. (sterile) 20 ML IVP ONE (12:01)
[2017-09-11] MEDS ORDERED: Propofol 500 MG/50 ML INFUS..BTL ONE (12:13)
[2017-09-11 12:48] LABS: Bilirubin,Urine Negative (Negative); Blood,Urine Negative (Negative); Clarity,Urine Cloudy (Clear); Color,Urine Yellow (Yellow); Glucose,Urine (UA) Normal (Normal); Ketones,Urine Negative (Negative); Leukocyte Esterase,Urine Negative (Negative); Nitrite,Urine Negative (Negative); PH,Urine 7.5 pH Units (5.0-8.0); Protein,Urine Negative (Neg-Trace); Specific Gravity,Urine 1.025 (1.010-1.025); Urobilinogen,Urine Normal (Normal)
[2017-09-11 12:50] LABS: Bacteria,Urine None Seen per hpf (None-Few); Hyaline Casts,Urine None Seen per lpf (None-Few); Squamous Epithelial Cell,Urine Many per lpf (None-Few); WBC,Urine 0-3 per hpf (0-3)
[2017-09-11] MEDS ORDERED: *HR* FentaNYL (PF) 100 MCG/2 ML VIAL IVP ONE (13:11)
[2017-09-11] MEDS ORDERED: Lacri-Lube 3.5 GM TUBE BOTH EYES PRN (13:12)
--- NOTE | 2017-09-11 13:18 | Pulmonology History & Physical ---
<aGurav Perez - Last Filed: 09/11/17 16:37> Date of Encounter: 09/11/17 Time of Encounter: 13:15 Assessment and Plan (1) Acute respiratory failure with hypoxia Current visit: Yes Status: Acute The patient was noted to be in the emergency department and have seizure-like activity. At that time the patient had an O2 saturation in the 70s. He was subsequently intubated. The patient is doing well on the ventilator. He has poor breath sounds bilaterally. The patient's chest x-ray demonstrates increasing size of mass. The patient's does state that the patient previously had a bronchoscopy where they had to physically debrided the patient' s airway to prevent air entrapment and worsening dyspnea. Given the patient's acute change in respiratory status, we will perform sputum culture, blood culture, lab work to determine if there is any infectious etiology of his symptoms given the previous admissions for healthcare associated pneumonia. The patient was started on broad-spectrum metabolic studies include Zosyn and vancomycin. (2) Sepsis Current visit: No Status: Acute With patient's leukocytosis combined with his acute respiratory failure and recent ill feeling with his associated previous diagnosis of hospital-acquired pneumonia, the patient was empirically started on broad-spectrum antibiotic which we will continue. Qualifiers: Sepsis type: sepsis due to unspecified organism Qualified Code(s): A41.9 - Sepsis, unspecified organism (3) Seizure Current visit: Yes Status: Suspected Witnessed seizure by emergency department staff. We will continue to monitor and likely consult neurology. (4) Non-small cell carcinoma of right lung Current visit: No Status: Chronic (5) COPD (chronic obstructive pulmonary disease) Current visit: No Status: Chronic Qualifiers: COPD type: emphysema Emphysema type: panlobular Qualified Code(s): J43.1 - Panlobular emphysema History of Present Illness Chief complaint: Respiratory failure, Lung ca HPI: Mr. Barfield is a 62 year old male with history of non-small cell carcinoma of the long arrives to [facility] emergency department via EMS after the patient states he has not been feeling well at home. The patient recently had an admission for a pneumonia and was admitted to the [facility]. There he received IV antibiotics. Upon discharge home after receiving antibiotics for pneumonia, likely hospital-acquired, the patient was discharged on 10 days of levofloxacin. The patient's states that on day 6 of his home therapy of the levofloxacin the patient began feeling well. He was continued on levofloxacin. He continued however to experience worsening difficulty breathing, cough, dyspnea over the course in the past few days. Patient wears 2 L NC O2 all the time. The patient has required 4L O2 over the past 24 hours due to worsening dyspnea. This morning the patient's states she called EMS to bring the patient to the ED because she was worried that the patient was severely dehydrated as the patient has not eaten or drank in the past couple days. Upon arrival to [facility] emergency department the patient was began to be resuscitated but then had a what appears to be grand mal seizure according to ED report. His pulse oximetry dropped down into the low 70s with respiratory distress. The patient was subsequently intubated. The patient is currently being sedated at this time with propofol. The patient's last chemotherapy treatment was on July 28 and 2016. The patient has not received any treatment since then due to being ill with pneumonia. The patient does continue to experience worsening shortness of breath over the past month since the last treatment. The patient did receive a CT scan of his chest which demonstrated enlarging tumor with postobstructive changes. In addition there was interval improvement in the appearance of a right lower lobe pneumonia and resolution of her right pleural effusion. There was no new pulmonary abnormality noted on CT scan. Patient's CT of the head demonstrates no acute abnormality. Patient's lab work demonstrates an elevated lactic acid at 6.3, a leukocytosis, a BNP of 167, and a negative troponin. The patient is currently on the ventilator and is sedated. He is received IV fluid bolus. In addition he was started on vancomycin and Zosyn with concern for possible infection associated with health care associated pneumonia. After discussion with the patient's family they are currently making the patient a DNR CC arrest. Past Med Surg Social Fam HX - Past Medical History Source: old records reviewed Medical history: hypertension, cancer, COPD Psychiatric history: no psych history - Past Surgical History Surgical History: no surgical history - Social History Smoking Status: Former smoker Smokeless Tobacco Status: No Alcohol use: none Drug use: none Current living situation: Home, With Family - Family History Father Family Member Ethnicity: Non- Living Status: Hx Family Cardiac Disorders: Yes Hx Family Endocrine Disorder: Yes (DM) Mother Family Member Ethnicity: Non- Living Status: Still Living Hx Family Respiratory Disorders: Yes Hx Family Endocrine Disorder: Yes (DM) Brother Family Member Ethnicity: Non- Living Status: Still Living Hx Family Cardiac Disorders: Yes (HTN) Sister Family Member Ethnicity: Non- Living Status: Still Living Hx Family Endocrine Disorder: Yes (DM) Medications and Allergies Folic Acid 1 mg PO DAILY #30 tablet 04/23/17 [Rx] Aspirin Enteric Coated [Aspirin EC] 81 mg PO DAILY 06/24/17 [History] Lactobacillus Acidophilus [Acidophilus] 1 cap PO DAILY 06/24/17 [History] Loratadine [Allergy Relief] 10 mg PO DAILY 06/24/17 [History] Simvastatin [Zocor] 40 mg PO HS 06/24/17 [History] Thiamine (B-1) [Vitamin B-1] 100 mg PO DAILY 06/24/17 [History] Magnesium 250 mg PO DAILY 07/06/17 [History] Megestrol Acetate [Megace] 20 ml PO DAILY #600 mls 07/06/17 [Rx] Ondansetron HCl [Zofran] 4 mg PO Q8H #60 tablet 07/09/17 [Rx] Potassium Chloride 20 meq PO BID #14 tab.er.prt 07/31/17 [Rx] Albuterol Sulfate [Albuterol Inhaler] 2 puff IH Q4HR PRN #1 hfa.aer.ad 08/08/17 [Rx] levoFLOXacin [Levaquin] 750 mg PO DAILY #4 tablet 08/08/17 [Rx] Dexamethasone [Decadron] 4 mg PO DAILY 09/11/17 [History] Mirtazapine [Remeron] 30 mg PO DAILY 09/11/17 [History] Pantoprazole Sodium 40 mg PO DAILY 09/11/17 [History] Paroxetine HCl [Paxil] 10 mg PO DAILY 09/11/17 [History] Sulfamethoxazole/Trimeth DS [Bactrim DS] 1 tab PO 3XW 09/11/17 [History] 3 Allergy/AdvReac Type Severity Reaction Status Date / Time losartan [From Cozaar] Allergy See Verified 07/29/17 10:06 Comments ROS unobtainable: due to endotracheal tube All Systems: A 10-system review of systems was performed and is negative for pertinent findings except as documented above in the HPI. Physical Examination General appearance: other (Patient intubated and sedated. Patient is cachectic appearing) Eyes: nonicteric ENT: oropharynx moist Effort: other (On ventilator) Auscultation: right: rales, bilateral: diminished breath sounds Cardiovascular: regular rate and rhythm Gastrointestinal: soft, non-distended Integumentary: normal Extremities: no edema, pulses normal Musculoskeletal: no deformities other (Patient currently sedated.) Results - Laboratory Findings CBC and BMP: 09/11/17 11:03 09/11/17 11:03 ABG ABG pH 7.49 pH Units (7.32-7.45) H 09/11/17 11:42 ABG pCO2 37 mmHg (35-45) 09/11/17 11:42 ABG pO2 489 mmHg (85-104) H 09/11/17 11:42 ABG O2 Saturation 100 % (95-98) H 09/11/17 11:42 Abnormal lab findings: Abnormal lab results WBC 19.7 K/mcL (4.3-11.1) H 09/11/17 11:03 RBC 3.89 M/mcL (4.19-5.50) L 09/11/17 11:03 Hgb 11.9 g/dL (12.9-16.9) L 09/11/17 11:03 Hct 37.2 % (37.5-50.1) L 09/11/17 11:03 RDW 16.9 % (11.5-14.5) H 09/11/17 11:03 MPV 8.0 fL (9.4-12.4) L 09/11/17 11:03 Neutrophils # 15.3 K/mcL (1.6-8.9) H 09/11/17 11:03 ABG pH 7.49 pH Units (7.32-7.45) H 09/11/17 11:42 ABG pO2 489 mmHg (85-104) H 09/11/17 11:42 ABG HCO3 28 mEq/L (21-27) H 09/11/17 11:42 ABG Total CO2 29 mEq/L (20-26) H 09/11/17 11:42 ABG O2 Saturation 100 % (95-98) H 09/11/17 11:42 ABG Base Excess 5 mEq/L (-2 to 3) H 09/11/17 11:42 Sodium 131 mEq/L (136-145) L 09/11/17 11:03 Chloride 93 mEq/L (98-107) L 09/11/17 11:03 Creatinine 0.61 mg/dL (0.70-1.30) L 09/11/17 11:03 Calculated Osmolality 273 (280-300) L 09/11/17 11:03 Lactic Acid 6.3 mmol/L (0.5-2.2) H* 09/11/17 11:03 Calcium 8.4 mg/dL (8.6-10.3) L 09/11/17 11:03 B-Natriuretic Peptide 167 pg/mL (Less than 100) H 09/11/17 11:03 Urine Clarity Cloudy (Clear) A 09/11/17 12:35 Urine Microscopic RBC 3-5 per hpf (0-3) H 09/11/17 12:35 Ur Squamous Epith Cells Many per lpf (None-Few) H 09/11/17 12:35 - Attending Attestation I examined this patient and my medical decision-making was reviewed with the Resident Physician. I agree with the documented findings, disposition and treatment plan as described except to the extent set forth below. <Morales Mi W - Last Filed: 09/11/17 16:56> Date of Encounter: 09/11/17 History of Present Illness HPI: Mr. Barfield is a 62 year old male All Systems: A 10-system review of systems was performed and is negative for pertinent findings except as documented above in the HPI. Physical Examination Vital Signs: Vital Signs, Last 4 Hours Temp Pulse Resp BP Pulse Ox 09/11/17 16:00 100 14 123/75 96 09/11/17 15:52 18 113/69 95 09/11/17 15:09 106 14 144/90 97 09/11/17 14:22 99 09/11/17 14:15 98.1 F 116 14 138/107 100 09/11/17 14:06 16 158/100 98 09/11/17 14:00 113 Results - Laboratory Findings CBC and BMP: 09/11/17 11:03 09/11/17 11:03 ABG ABG pH 7.42 pH Units (7.32-7.45) 09/11/17 14:16 ABG pCO2 36 mmHg (35-45) 09/11/17 14:16 ABG pO2 73 mmHg (85-104) L D 09/11/17 14:16 ABG O2 Saturation 95 % (95-98) 09/11/17 14:16 Abnormal lab findings: Abnormal lab results WBC 19.7 K/mcL (4.3-11.1) H 09/11/17 11:03 RBC 3.89 M/mcL (4.19-5.50) L 09/11/17 11:03 Hgb 11.9 g/dL (12.9-16.9) L 09/11/17 11:03 Hct 37.2 % (37.5-50.1) L 09/11/17 11:03 RDW 16.9 % (11.5-14.5) H 09/11/17 11:03 MPV 8.0 fL (9.4-12.4) L 09/11/17 11:03 Neutrophils # 15.3 K/mcL (1.6-8.9) H 09/11/17 11:03 ABG pO2 73 mmHg (85-104) L D 09/11/17 14:16 Sodium 131 mEq/L (136-145) L 09/11/17 11:03 Chloride 93 mEq/L (98-107) L 09/11/17 11:03 Creatinine 0.61 mg/dL (0.70-1.30) L 09/11/17 11:03 POC Glucose 137 (58-89) H 09/11/17 14:12 Calculated Osmolality 273 (280-300) L 09/11/17 11:03 Lactic Acid 6.3 mmol/L (0.5-2.2) H* 09/11/17 11:03 Calcium 8.4 mg/dL (8.6-10.3) L 09/11/17 11:03 AST 9 Units/L (13-39) L 09/11/17 16:15 B-Natriuretic Peptide 167 pg/mL (Less than 100) H 09/11/17 11:03 Serum Total Protein 4.6 g/dL (6.4-8.9) L 09/11/17 16:15 Albumin 2.2 g/dL (3.5-5.7) L 09/11/17 16:15 Albumin/Globulin Ratio 0.9 (1.1-2.2) L 09/11/17 16:15 Urine Clarity Cloudy (Clear) A 09/11/17 12:35 Urine Microscopic RBC 3-5 per hpf (0-3) H 09/11/17 12:35 Ur Squamous Epith Cells Many per lpf (None-Few) H 09/11/17 12:35 - Attending Attestation I examined this patient and my medical decision-making was reviewed with the Resident Physician. I agree with the documented findings, disposition and treatment plan as described except to the extent set forth below. We independently had [id number]-[id number] contact with the patient I spent 33min of Critical Care time with this patient. It involved decision making of high complexity to assess, manipulate, and support vital organ system failure and/or to prevent further life threatening deterioration of the patient' s condition. The time involved in the performance of separately reportable procedures was not counted toward critical care time. Patient seen and examined at bedside Labs, radiology, chart personally reviewed. Management was reviewed during multidisciplinary critical care rounds. 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 FEN-GI: Nothing by mouth for now GI prophylaxis given Renal: Urine output monitored trend serum creatinine and electrolytes ID: Treating for suspected pneumonia he is at risk for resistant organisms Cards: Distributive shock likely secondary to pneumonia post fluid resuscitation trend lactate start vasopressor goal map around 65; PICC line placed at family's request preferentially over CVC Heme/Onc: DVT prophylaxis given; history of non-small cell lung cancer with poor performance status which has interrupted lumbee based chemotherapy Endo: Glucose Monitored Integ/MSK: Skin Care per routine ICU Nursing Protocol to prevent ulcers. Lines: All lines examined without evidence of infection : Dispo: Remain in ICU for ongoing care CODE: Full next of kin the patient's and daughter were updated at bedside overall prognosis poor
[2017-09-11] MEDS: Propofol 500 MG/50 ML INFUS..BTL IVC SCH (13:23)
[2017-09-11] MEDS ORDERED: Vancomycin 500 MG in D5% in Water 250 ML IVPB SCH (14:00)
[2017-09-11] MEDS: FentaNYL (PF) 1,000 MCG in 0.9 % Sodium Chloride 80 ML IVC SCH (14:00)
[2017-09-11 14:19] LABS: ABG Base Excess -1 mEq/L (-2 to 3); ABG HCO3 24 mEq/L (21-27); ABG Oxygen Saturation 95 % (95-98); ABG PCO2 36 mmHg (35-45); ABG PH 7.42 pH Units (7.32-7.45); ABG PO2 73 mmHg (85-104); ABG TCO2 25 mEq/L (20-26); Blood Gas Modality ASSIST CONTROL; Blood Gas PEEP 5 cm H2O; Blood Gas Respiration Rate 14; Blood Gas VT 450 cc
[2017-09-11 14:53] LABS: Adenovirus Not Detected (Not Detect); Bordetella Pertussis Not Detected (Not Detect); Chlamydophila pneumoniae Not Detected (Not Detect); Coronavirus 229E Not Detected (Not Detect); Coronavirus HKU1 Not Detected (Not Detect); Coronavirus NL63 Not Detected (Not Detect); Coronavirus OC43 Not Detected (Not Detect); Human Metapneumovirus Not Detected (Not Detect); Human Rhinovirus/Enterovirus Not Detected (Not Detect); Influenza A Subtype 2009 H1 Not Detected (Not Detect); Influenza A Untypeable Not Detected (Not Detect); Influenza B Not Detected (Not Detect); Mycoplasma pneumoniae Not Detected (Not Detect); Parainfluenza Virus 1 Not Detected (Not Detect); Parainfluenza Virus 2 Not Detected (Not Detect); Parainfluenza Virus 3 Not Detected (Not Detect); Parainfluenza Virus 4 Not Detected (Not Detect); Respiratory Syncytial Virus Not Detected (Not Detect)
[2017-09-11] MEDS ORDERED: Lidocaine -MPF 1% 2 ML VIAL INFILT ONE (15:26)
[2017-09-11] MEDS: Ipratropium/Albuterol Neb 3 ML IH SCH ×3 (15:52→23:14)
[2017-09-11] MEDS: Dexmedetomidine HCl 200 MCG/50 ML MLS IVC SCH (16:37)
[2017-09-11 16:41] LABS: Albumin 2.2 g/dL (3.5-5.7); Albumin/Globulin Ratio 0.9 (1.1-2.2); Bilirubin,Direct 0.1 mg/dL (0.0-0.2); Bilirubin,Indirect 0.3 mg/dL (0.0-1.2); Bilirubin,Total 0.4 mg/dL (0.3-1.0); Globulin 2.4 g/dL (2.4-3.5); Total Protein 4.6 g/dL (6.4-8.9)
[2017-09-11] MEDS ORDERED: predniSONE 20 MG TABLET PO SCH (17:00)
--- NOTE | 2017-09-11 17:30 | Electrocardiograph Report ---
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
[2017-09-11] MEDS: Pantoprazole 40 MG VIAL IVP SCH (18:46)
[2017-09-11] MEDS: Lacri-Lube 3.5 GM TUBE BOTH EYES SCH ×2 (18:46→20:37)
[2017-09-11] MEDS: MethylPREDNISolone 40 MG/ML VIAL IVP SCH (18:46)
[2017-09-11] MEDS: Norepinephrine 4 MG in D5% in Water 250 ML IVC SCH (20:34)
[2017-09-11] MEDS: Chlorhexidine Rinse 15 ML MOUTHWASH MM SCH (20:36)
[2017-09-12] MEDS: Lacri-Lube 3.5 GM TUBE BOTH EYES SCH ×6 (00:27→19:36)
[2017-09-12] MEDS: FentaNYL (PF) 1,000 MCG in 0.9 % Sodium Chloride 80 ML IVC SCH (02:48)
[2017-09-12] MEDS: Ipratropium/Albuterol Neb 3 ML IH SCH ×6 (03:18→23:23)
[2017-09-12 03:34] LABS: Basophils % 0.1 %; Hematocrit 26.3 % (37.5-50.1); Immature Granulocytes % 1.7 % (0-4); Lymphocytes # 0.9 K/mcL (0.6-4.6); Lymphocytes % 5.7 %; Mean Corpuscular HGB Conc 32.7 g/dL (31.6-35.5); Mean Corpuscular Hemoglobin 31.3 pg (28.0-33.3); Mean Corpuscular Volume 95.6 fL (83.0-100.0); Mean Platelet Volume 8.3 fL (9.4-12.4); Monocytes # 0.6 K/mcL (0.0-1.3); Monocytes % 3.9 %; Neutrophils # 13.9 K/mcL (1.6-8.9); Platelet Count 303 K/mcL (140-400); Red Blood Count 2.75 M/mcL (4.19-5.50); Red Cell Distribution Width 17.2 % (11.5-14.5); Segmented Neutrophils % 88.6 %
[2017-09-12 03:35] LABS: Hemoglobin 8.6 g/dL (12.9-16.9)
[2017-09-12 03:52] LABS: BUN/Creatinine Ratio 35 (6-26); Blood Urea Nitrogen 16 mg/dL (8-23); Calcium 7.7 mg/dL (8.6-10.3); Carbon Dioxide 22 mEq/L (23-29); Chloride 104 mEq/L (98-107); Glucose 201 mg/dL (70-105); Magnesium 1.8 mg/dL (1.6-2.6); Osmolality,Calculated 287 (280-300); Potassium 3.2 mEq/L (3.5-5.1); Sodium 135 mEq/L (136-145); eGFR For African Americans > 60 (> 60); eGFR For Non-African Americans > 60 (> 60)
[2017-09-12 04:03] LABS: ABG Base Excess -1 mEq/L (-2 to 3); ABG HCO3 23 mEq/L (21-27); ABG Oxygen Saturation 96 % (95-98); ABG PCO2 35 mmHg (35-45); ABG PH 7.42 pH Units (7.32-7.45); ABG PO2 79 mmHg (85-104); ABG TCO2 24 mEq/L (20-26); Blood Gas Modality ASSIST CONTROL; Blood Gas PEEP 5 cm H2O; Blood Gas Respiration Rate 14; Blood Gas VT 450 cc
[2017-09-12] MEDS: Dexmedetomidine HCl 200 MCG/50 ML MLS IVC SCH (04:07)
[2017-09-12] MEDS: MethylPREDNISolone 40 MG/ML VIAL IVP SCH ×2 (06:10→20:12)
[2017-09-12] MEDS ORDERED: Aminoglycoside Consult 1 EACH MC ONE (08:14)
[2017-09-12] MEDS: Chlorhexidine Rinse 15 ML MOUTHWASH MM SCH ×2 (08:40→19:37)
[2017-09-12] MEDS: Pantoprazole 40 MG VIAL IVP SCH (08:40)
[2017-09-12] MEDS ORDERED: predniSONE 20 MG TABLET PO SCH (09:00)
[2017-09-12] MEDS ORDERED: Magnesium Sulfate 2 GM in D5% in Water 100 ML IVPB ONE (09:52)
[2017-09-12] MEDS ORDERED: D5% in Water 1,000 ML IVC PRN (10:49)
[2017-09-12] MEDS ORDERED: *HR* Dextrose 50 % in Water (Syg) 50 ML SYRINGE IVP PRN (10:49)
[2017-09-12] MEDS ORDERED: Dextrose Gel 15 GM/37.5 ML TUBE PO PRN ×2 (10:49)
[2017-09-12 10:56] LABS: VBG HCO3 23 mEq/L (21-27); VBG Ionized Calcium 1.13 mmol/L (1.15-1.35); VBG PCO2 38 mmHg (41-51); VBG PH 7.39 pH Units (7.32-7.42); VBG PO2 201 mmHg (25-50)
--- NOTE | 2017-09-12 12:33 | Pulmonology Progress Note ---
Date of Encounter: 09/12/17 Time of Encounter: 12:31 Assessment and Plan (1) Acute respiratory failure with hypoxia Current Visit: Yes Status: Acute Patient seen and examined at bedside Labs, radiology, chart personally reviewed. Management was reviewed during multidisciplinary critical care rounds. Patient was intubated yesterday for acute hypoxic respiratory failure that seemed to be associated with a seizure-like event. He is done remarkably well in the event overnight and is undergoing spontaneous breathing trial with liberation planned later this morning per protocol. (2) Squamous cell carcinoma of right lung Current Visit: No Status: Acute Patient has advanced lung malignancy and performance status along with recurrent infections has interrupted his ability to continue chemotherapy and radiation. (3) COPD exacerbation Current Visit: No Status: Acute Continue bronchodilators and IV steroids today with plan to transition to enteral formulation within the next 24 hours (4) Failure to thrive Current Visit: No Status: Acute I had a long conversation with the daughter and mother and explained that overall prognosis of the patient is very poor they have changed his CODE STATUS at the [facility] which is appropriate this could be rescinded based upon what the patient's requests are once he is extubated no longer on any sedation we can continue this conversation but it appears that per family report patient had been declining rapidly over the last few weeks and had expressed desire to stop aggressive measures may need palliative care consultation with the next 24-48 hours to continue addressing goals of care for which hospice would be very appropriate Qualifiers: Failure to thrive age range: in adult Qualified Code(s): R62.7 - Adult failure to thrive (5) Protein-calorie malnutrition, severe Current Visit: No Status: Acute He is currently nothing by mouth postextubation we will perform a swallow eval at bedside per nursing protocol with plan to advance diet based upon results (6) Seizure Current Visit: Yes Status: Suspected Or more correctly identified as seizure-like activity patient has had seizure- like spells over the last few weeks this may be related to hypoxic events or electrolyte abnormalities his had no such activity since he has been in the ICU we will monitor this closely he had an MR of the brain to evaluate for metastatic disease within the last month or so this may need to be repeated on an outpatient basis head CT on admission was unremarkable (7) DVT prophylaxis Current Visit: No Status: Acute Per routine (8) Pneumonia Current Visit: Yes Status: Acute Patient has risk factors for resistant organisms and he is on broad-spectrum antimicrobials with planned to de-escalate based upon cultures sensitivity Qualifiers: Lung location: unspecified part of lung Qualified Code(s): J18.9 - Pneumonia, unspecified organism Subjective Principal diagnosis: Respiratory failure Interval history: Mr. Barfield has done remarkably well overnight. He has been weaned off vasopressors and is currently hemodynamically stable with only minimal requirement from the vent when I examined him he was in the middle of his spontaneous breathing trial with distress. Objective PUL Vital signs: Last Vital Signs Temp 98.3 F 09/12/17 08:45 Pulse 112 09/12/17 11:35 Resp 16 09/12/17 11:35 BP 139/83 09/12/17 11:35 Pulse Ox 99 09/12/17 11:35 General appearance: no acute distress, other (He is cachectic and chronically ill-appearing) ENT: oropharynx dry Auscultation: bilateral: diminished breath sounds Cardiovascular: regular rate and rhythm Gastrointestinal: normoactive bowel sounds, soft Integumentary: normal Extremities: no edema normal mental status, non-focal exam, pupils equal and round mood appropriate Ventilator Settings Ventilator Settings: Ventilator Settings, Last 8 Hours Ventilator Mode CPAP Ventilator Mode CPAP Ventilator Mode CPAP Ventilator Mode A/C Ventilator Mode A/C Ventilator Mode A/C Ventilator Mode A/C Ventilator Tidal Volume 450 Setting Ventilator Tidal Volume 450 Setting Ventilator Tidal Volume 450 Setting Ventilator Tidal Volume 450 Setting Ventilator Respiratory Rate 14 Setting Ventilator Respiratory Rate 14 Setting Ventilator Respiratory Rate 14 Setting Ventilator Respiratory Rate 14 Setting Actual Respiratory Rate 22 Actual Respiratory Rate 22 Actual Respiratory Rate 18 Actual Respiratory Rate 19 Actual Respiratory Rate 15 Actual Respiratory Rate 15 Actual Respiratory Rate 14 Positive End Expiratory 5 Pressure Positive End Expiratory 5 Pressure Positive End Expiratory 5 Pressure Positive End Expiratory 5 Pressure Positive End Expiratory 5 Pressure Positive End Expiratory 5 Pressure Positive End Expiratory 5 Pressure Peak Inspiratory Airway 15 Pressure Peak Inspiratory Airway 15 Pressure Peak Inspiratory Airway 15 Pressure Peak Inspiratory Airway 15 Pressure Peak Inspiratory Airway 23 Pressure Peak Inspiratory Airway 21 Pressure Peak Inspiratory Airway 22 Pressure Results - Laboratory Findings CBC and BMP: 09/12/17 03:18 09/12/17 03:18 ABG ABG pH 7.42 pH Units (7.32-7.45) 09/12/17 04:00 ABG pCO2 35 mmHg (35-45) 09/12/17 04:00 ABG pO2 79 mmHg (85-104) L 09/12/17 04:00 ABG O2 Saturation 96 % (95-98) 09/12/17 04:00 Abnormal lab findings: Abnormal lab results WBC 15.6 K/mcL (4.3-11.1) H 09/12/17 03:18 RBC 2.75 M/mcL (4.19-5.50) L 09/12/17 03:18 Hgb 8.6 g/dL (12.9-16.9) L D 09/12/17 03:18 Hct 26.3 % (37.5-50.1) L 09/12/17 03:18 RDW 17.2 % (11.5-14.5) H 09/12/17 03:18 MPV 8.3 fL (9.4-12.4) L 09/12/17 03:18 Neutrophils # 13.9 K/mcL (1.6-8.9) H 09/12/17 03:18 ABG pO2 79 mmHg (85-104) L 09/12/17 04:00 VBG pCO2 38 mmHg (41-51) L 09/12/17 10:49 VBG pO2 201 mmHg (25-50) H 09/12/17 10:49 Sodium 135 mEq/L (136-145) L 09/12/17 03:18 Potassium 3.2 mEq/L (3.5-5.1) L 09/12/17 03:18 Carbon Dioxide 22 mEq/L (23-29) L 09/12/17 03:18 Creatinine 0.46 mg/dL (0.70-1.30) L 09/12/17 03:18 BUN/Creatinine Ratio 35 (6-26) H 09/12/17 03:18 Glucose 201 mg/dL (70-105) H 09/12/17 03:18 POC Glucose 201 (58-89) H 09/12/17 00:35 Calcium 7.7 mg/dL (8.6-10.3) L 09/12/17 03:18 Venous Ioniz Calcium 1.13 mmol/L (1.15-1.35) L 09/12/17 10:49 AST 9 Units/L (13-39) L 09/11/17 16:15 B-Natriuretic Peptide 167 pg/mL (Less than 100) H 09/11/17 11:03 Serum Total Protein 4.6 g/dL (6.4-8.9) L 09/11/17 16:15 Albumin 2.2 g/dL (3.5-5.7) L 09/11/17 16:15 Albumin/Globulin Ratio 0.9 (1.1-2.2) L 09/11/17 16:15 Urine Clarity Cloudy (Clear) A 09/11/17 12:35 Urine Microscopic RBC 3-5 per hpf (0-3) H 09/11/17 12:35 Ur Squamous Epith Cells Many per lpf (None-Few) H 09/11/17 12:35 - Microbiology Findings Microbiology Findings: Microbiology, Last 48 Hours 09/11/17 18:00 Sputum Culture - Preliminary Sputum - Clinical Findings Intake & Output: Intake & Output 09/11/17 09/12/17 09/12/17 23:59 07:59 15:59 Intake Total 1000 / 1000 399.3 / 399.3 Output Total 1000 / 1000 250 / 250 100 / 100 Balance 0 / 0 149.3 / 149.3 -100 / -100 Weight 40.7 kg Consult Discharge Plan - Plan Referrals: Andre Dodge MD [Primary Care Provider] -
[2017-09-12] MEDS ORDERED: Vancomycin 500 MG in 0.9 % Sodium Chloride Mini Bag 100 ML IVPB SCH (13:00)
[2017-09-12] MEDS: Norepinephrine 4 MG in D5% in Water 250 ML IVC SCH (13:49)
[2017-09-12] MEDS: Propofol 500 MG/50 ML INFUS..BTL IVC SCH (13:49)
[2017-09-12] MEDS: Insulin LISPRO 300 UNITS/3 ML VIAL SQ SCH ×2 (14:23→19:37)
[2017-09-13] MEDS: Lacri-Lube 3.5 GM TUBE BOTH EYES SCH ×2 (00:27→03:20)
[2017-09-13] MEDS: Insulin LISPRO 300 UNITS/3 ML VIAL SQ SCH ×4 (00:27→20:22)
[2017-09-13 03:56] LABS: Basophils % 0.1 %; Hematocrit 25.9 % (37.5-50.1); Hemoglobin 8.6 g/dL (12.9-16.9); Immature Granulocytes % 1.1 % (0-4); Lymphocytes % 7.1 %; Mean Corpuscular HGB Conc 33.2 g/dL (31.6-35.5); Mean Corpuscular Hemoglobin 31.5 pg (28.0-33.3); Mean Corpuscular Volume 94.9 fL (83.0-100.0); Mean Platelet Volume 8.1 fL (9.4-12.4); Monocytes # 0.9 K/mcL (0.0-1.3); Monocytes % 6.2 %; Neutrophils # 12.2 K/mcL (1.6-8.9); Platelet Count 285 K/mcL (140-400); Red Blood Count 2.73 M/mcL (4.19-5.50); Red Cell Distribution Width 17.4 % (11.5-14.5); Segmented Neutrophils % 85.5 %
[2017-09-13] MEDS: Ipratropium/Albuterol Neb 3 ML IH SCH ×6 (04:09→23:50)
[2017-09-13 04:40] LABS: BUN/Creatinine Ratio 31 (6-26); Blood Urea Nitrogen 14 mg/dL (8-23); Calcium 7.8 mg/dL (8.6-10.3); Carbon Dioxide 25 mEq/L (23-29); Chloride 101 mEq/L (98-107); Glucose 93 mg/dL (70-105); Osmolality,Calculated 278 (280-300); Potassium 2.6 mEq/L (3.5-5.1); Sodium 134 mEq/L (136-145); eGFR For African Americans > 60 (> 60); eGFR For Non-African Americans > 60 (> 60)
[2017-09-13] MEDS ORDERED: Potassium Chloride 40 MEQ/200 ML BAG IVPB PRN (04:45)
[2017-09-13] MEDS: MethylPREDNISolone 40 MG/ML VIAL IVP SCH (05:28)
[2017-09-13] MEDS ORDERED: *HR* Metoprolol 5 MG/5 ML VIAL IVP ONE ×2 (08:43→09:09)
--- NOTE | 2017-09-13 08:48 | Pulmonology Progress Note ---
<Gaurav Perez - Last Filed: 09/13/17 09:45> Date of Encounter: 09/13/17 Time of Encounter: 08:46 Assessment and Plan (1) Acute respiratory failure with hypoxia Current Visit: Yes Status: Acute Patient has done well on nasal cannula and BiPAP intermittently. He is resting comfortably in bed side. He is answering questions appropriately with some intermittent episodes of confusion which is apparently baseline. The patient is continued on Zosyn with likely de-escalation. Sputum culture reveals no gram-positive cocci. The patient's vancomycin was discontinued. Speech evaluation must be completed due to patient's inability to even swallow ice chips. (2) Sepsis Current Visit: No Status: Acute Patient's respiratory status has continued to improve. The patient was de- escalate and off vancomycin and continued on Zosyn at this time. We will continue to monitor patient's respiratory status. Patient's leukocytosis continue to improve. Qualifiers: Sepsis type: sepsis due to unspecified organism Qualified Code(s): A41.9 - Sepsis, unspecified organism (3) Seizure Current Visit: Yes Status: Suspected Likely not true epileptic seizures given patient's past history of seizure like activity. (4) Non-small cell carcinoma of right lung Current Visit: No Status: Chronic (5) COPD (chronic obstructive pulmonary disease) Current Visit: No Status: Chronic Qualifiers: COPD type: emphysema Emphysema type: panlobular Qualified Code(s): J43.1 - Panlobular emphysema Subjective Principal diagnosis: Respiratory failure Interval history: Patient has done well overnight without difficulty. The patient has had some issues with swallowing I ships. He is currently nothing by mouth at this time. Speech consult was officially been made. The patient is resting comfortably in the room. He is currently receiving IV Zosyn. Vancomycin was discontinued at this time. We will likely transfer the patient out of the ICU today. He is resting comfortably at bedside only on BiPAP when sleeping. He has had some intermittent episodes of confusion which is apparently baseline for the patient. Objective PUL Vital signs: Last Vital Signs Temp 99.0 F 09/13/17 08:25 Pulse 112 09/13/17 06:00 Resp 17 09/13/17 07:28 BP 140/91 09/13/17 07:28 Pulse Ox 100 09/13/17 07:28 General appearance: no acute distress Eyes: nonicteric ENT: oropharynx moist Auscultation: bilateral: diminished breath sounds Cardiovascular: other (Tachycardic and regular rhythm.) Gastrointestinal: soft, non-tender, non-distended Integumentary: normal Extremities: no cyanosis, no edema, no clubbing Musculoskeletal: no deformities non-focal exam mood appropriate, affect normal Results - Laboratory Findings CBC and BMP: 09/13/17 03:47 09/13/17 03:47 ABG ABG pH 7.42 pH Units (7.32-7.45) 09/12/17 04:00 ABG pCO2 35 mmHg (35-45) 09/12/17 04:00 ABG pO2 79 mmHg (85-104) L 09/12/17 04:00 ABG O2 Saturation 96 % (95-98) 09/12/17 04:00 Abnormal lab findings: Abnormal lab results WBC 14.3 K/mcL (4.3-11.1) H 09/13/17 03:47 RBC 2.73 M/mcL (4.19-5.50) L 09/13/17 03:47 Hgb 8.6 g/dL (12.9-16.9) L 09/13/17 03:47 Hct 25.9 % (37.5-50.1) L 09/13/17 03:47 RDW 17.4 % (11.5-14.5) H 09/13/17 03:47 MPV 8.1 fL (9.4-12.4) L 09/13/17 03:47 Neutrophils # 12.2 K/mcL (1.6-8.9) H 09/13/17 03:47 ABG pO2 79 mmHg (85-104) L 09/12/17 04:00 VBG pCO2 38 mmHg (41-51) L 09/12/17 10:49 VBG pO2 201 mmHg (25-50) H 09/12/17 10:49 Sodium 134 mEq/L (136-145) L 09/13/17 03:47 Potassium 2.6 mEq/L (3.5-5.1) L 09/13/17 03:47 Creatinine 0.45 mg/dL (0.70-1.30) L 09/13/17 03:47 BUN/Creatinine Ratio 31 (6-26) H 09/13/17 03:47 POC Glucose 102 (58-89) H 09/12/17 23:58 Calculated Osmolality 278 (280-300) L 09/13/17 03:47 Calcium 7.8 mg/dL (8.6-10.3) L 09/13/17 03:47 Venous Ioniz Calcium 1.13 mmol/L (1.15-1.35) L 09/12/17 10:49 AST 9 Units/L (13-39) L 09/11/17 16:15 B-Natriuretic Peptide 167 pg/mL (Less than 100) H 09/11/17 11:03 Serum Total Protein 4.6 g/dL (6.4-8.9) L 09/11/17 16:15 Albumin 2.2 g/dL (3.5-5.7) L 09/11/17 16:15 Albumin/Globulin Ratio 0.9 (1.1-2.2) L 09/11/17 16:15 Urine Clarity Cloudy (Clear) A 09/11/17 12:35 Urine Microscopic RBC 3-5 per hpf (0-3) H 09/11/17 12:35 Ur Squamous Epith Cells Many per lpf (None-Few) H 09/11/17 12:35 - Microbiology Findings Microbiology Findings: Microbiology, Last 48 Hours 09/11/17 18:00 Sputum Culture - Preliminary Sputum - Clinical Findings Intake & Output: Intake & Output 09/12/17 09/13/17 09/13/17 23:59 07:59 15:59 Intake Total 100 / 100 Output Total 100 / 100 775 / 775 500 / 500 Balance -100 / -100 -675 / -675 -500 / -500 Weight 42.7 kg Consult Discharge Plan - Plan Referrals: Andre Dodge MD [Primary Care Provider] - - Attending Attestation I examined this patient and my medical decision-making was reviewed with the Resident Physician. I agree with the documented findings, disposition and treatment plan as described except to the extent set forth below. <Morales Mi - Last Filed: 09/13/17 10:27> Date of Encounter: 09/13/17 Assessment and Plan (1) Acute respiratory failure with hypoxia Current Visit: Yes Status: Acute (2) Squamous cell carcinoma of right lung Current Visit: No Status: Acute (3) COPD exacerbation Current Visit: No Status: Acute (4) Failure to thrive Current Visit: No Status: Acute Qualifiers: Failure to thrive age range: in adult Qualified Code(s): R62.7 - Adult failure to thrive (5) Protein-calorie malnutrition, severe Current Visit: No Status: Acute (6) Seizure Current Visit: Yes Status: Suspected (7) DVT prophylaxis Current Visit: No Status: Acute (8) Pneumonia Current Visit: Yes Status: Acute Qualifiers: Lung location: unspecified part of lung Qualified Code(s): J18.9 - Pneumonia, unspecified organism Objective PUL Vital signs: Last Vital Signs Temp 99.0 F 09/13/17 08:25 Pulse 124 09/13/17 08:53 Resp 17 09/13/17 07:28 BP 140/91 09/13/17 07:28 Pulse Ox 100 09/13/17 07:28 Results - Laboratory Findings CBC and BMP: 09/13/17 03:47 09/13/17 03:47 ABG ABG pH 7.42 pH Units (7.32-7.45) 09/12/17 04:00 ABG pCO2 35 mmHg (35-45) 09/12/17 04:00 ABG pO2 79 mmHg (85-104) L 09/12/17 04:00 ABG O2 Saturation 96 % (95-98) 09/12/17 04:00 Abnormal lab findings: Abnormal lab results WBC 14.3 K/mcL (4.3-11.1) H 09/13/17 03:47 RBC 2.73 M/mcL (4.19-5.50) L 09/13/17 03:47 Hgb 8.6 g/dL (12.9-16.9) L 09/13/17 03:47 Hct 25.9 % (37.5-50.1) L 09/13/17 03:47 RDW 17.4 % (11.5-14.5) H 09/13/17 03:47 MPV 8.1 fL (9.4-12.4) L 09/13/17 03:47 Neutrophils # 12.2 K/mcL (1.6-8.9) H 09/13/17 03:47 ABG pO2 79 mmHg (85-104) L 09/12/17 04:00 VBG pCO2 38 mmHg (41-51) L 09/12/17 10:49 VBG pO2 201 mmHg (25-50) H 09/12/17 10:49 Sodium 134 mEq/L (136-145) L 09/13/17 03:47 Potassium 2.6 mEq/L (3.5-5.1) L 09/13/17 03:47 Creatinine 0.45 mg/dL (0.70-1.30) L 09/13/17 03:47 BUN/Creatinine Ratio 31 (6-26) H 09/13/17 03:47 POC Glucose 102 (58-89) H 09/12/17 23:58 Calculated Osmolality 278 (280-300) L 09/13/17 03:47 Calcium 7.8 mg/dL (8.6-10.3) L 09/13/17 03:47 Venous Ioniz Calcium 1.13 mmol/L (1.15-1.35) L 09/12/17 10:49 AST 9 Units/L (13-39) L 09/11/17 16:15 B-Natriuretic Peptide 167 pg/mL (Less than 100) H 09/11/17 11:03 Serum Total Protein 4.6 g/dL (6.4-8.9) L 09/11/17 16:15 Albumin 2.2 g/dL (3.5-5.7) L 09/11/17 16:15 Albumin/Globulin Ratio 0.9 (1.1-2.2) L 09/11/17 16:15 Urine Clarity Cloudy (Clear) A 09/11/17 12:35 Urine Microscopic RBC 3-5 per hpf (0-3) H 09/11/17 12:35 Ur Squamous Epith Cells Many per lpf (None-Few) H 09/11/17 12:35 - Microbiology Findings Microbiology Findings: Microbiology, Last 48 Hours 09/11/17 13:02 Blood Culture - Preliminary Peripheral Venipuncture No growth. 09/11/17 18:00 Sputum Culture - Preliminary Sputum - Clinical Findings Intake & Output: Intake & Output 09/12/17 09/13/17 09/13/17 23:59 07:59 15:59 Intake Total 100 / 100 Output Total 100 / 100 775 / 775 500 / 500 Balance -100 / -100 -675 / -675 -500 / -500 Weight 42.7 kg - Attending Attestation I examined this patient and my medical decision-making was reviewed with the Resident Physician. I agree with the documented findings, disposition and treatment plan as described except to the extent set forth below. We independently had [id number] contact with the patient Patient seen and examined at bedside Labs, radiology, chart personally reviewed. Management was reviewed during multidisciplinary critical care rounds. PLAYGROUND MONITOR: No focal deficit but patient clearly delirious continue to give frequent reorientation by hospital staff voices recuperation focus on sleep wake cycle latter-day avoid PLAYGROUND MONITOR depressants Pulm: Acute on chronic respiratory failure liberated ventilator yesterday acceptable oxygenation on nasal cannula treating for pneumonia having COPD exacerbation treatment with bronchodilators and steroids Cards: Blood pressure stable is tachycardic which is likely secondary to anxiety FEN-GI: Failed bedside swallow eval we will get formal speech and swallowing evaluation Renal: Urine output monitored ID: He is on antibiotics with planned to de-escalate today cultures pending unremarkable as far Heme/Onc: History of lung cancer which is advanced poor performance status overall poor prognosis; DVT prophylaxis given Endo: Glucose Monitored Integ/MSK: Skin Care per routine ICU Nursing Protocol to prevent ulcers. Lines: All lines examined without evidence of infection : Dispo: Stable for transfer to med telemetry to 2NE or 2a for ongoing care CODE: SARAH
[2017-09-13] MEDS ORDERED: predniSONE 20 MG TABLET PO SCH (09:00)
[2017-09-13] MEDS ORDERED: D5% in Water 1,000 ML IVC PRN (09:09)
[2017-09-13] MEDS ORDERED: Dextrose Gel 15 GM/37.5 ML TUBE PO PRN ×2 (09:09)
[2017-09-14] MEDS: Insulin LISPRO 300 UNITS/3 ML VIAL SQ SCH ×3 (00:10→17:27)
[2017-09-14] MEDS: *HR* Dextrose 50 % in Water (Syg) 50 ML SYRINGE IVP PRN ×2 (00:11→04:43)
[2017-09-14 03:39] LABS: Basophils % 0.1 %; Hematocrit 30.2 % (37.5-50.1); Immature Granulocytes % 1.5 % (0-4); Immature Platelets 1.1 % (1.1-6.1); Lymphocytes # 1.1 K/mcL (0.6-4.6); Lymphocytes % 5.1 %; Mean Corpuscular HGB Conc 33.8 g/dL (31.6-35.5); Mean Corpuscular Hemoglobin 31.1 pg (28.0-33.3); Mean Corpuscular Volume 92.1 fL (83.0-100.0); Mean Platelet Volume 8.1 fL (9.4-12.4); Monocytes # 1.2 K/mcL (0.0-1.3); Monocytes % 5.9 %; Neutrophils # 18.3 K/mcL (1.6-8.9); Nucleated Red Blood Cells 0.1 /100 WBC (0); Platelet Count 369 K/mcL (140-400); Red Blood Count 3.28 M/mcL (4.19-5.50); Red Cell Distribution Width 16.7 % (11.5-14.5); Segmented Neutrophils % 87.4 %
[2017-09-14 03:41] LABS: Hemoglobin 10.2 g/dL (12.9-16.9)
[2017-09-14 04:08] LABS: BUN/Creatinine Ratio 30 (6-26); Blood Urea Nitrogen 11 mg/dL (8-23); Calcium 8.2 mg/dL (8.6-10.3); Carbon Dioxide 27 mEq/L (23-29); Chloride 93 mEq/L (98-107); Glucose 55 mg/dL (70-105); Magnesium 1.6 mg/dL (1.6-2.6); Osmolality,Calculated 271 (280-300); Potassium 2.4 mEq/L (3.5-5.1); Sodium 132 mEq/L (136-145); eGFR For African Americans > 60 (> 60); eGFR For Non-African Americans > 60 (> 60)
[2017-09-14] MEDS: Ipratropium/Albuterol Neb 3 ML IH SCH ×5 (04:09→20:07)
[2017-09-14] MEDS ORDERED: Magnesium Sulfate 2 GM in D5% in Water 100 ML IVPB ONE (04:17)
[2017-09-14] MEDS ORDERED: POTASSIUM CHLORIDE IVPB ONE (04:30)
[2017-09-14] MEDS ORDERED: D5% in 0.45% NACL 1,000 ML IVC ONE (04:30)
[2017-09-14] MEDS ORDERED: Potassium Chloride 40 MEQ/200 ML BAG IVPB SCH (04:30)
[2017-09-14] MEDS ORDERED: D5% in 0.45% NACL 1,000 ML IVC SCH (04:30)
[2017-09-14] MEDS: Potassium Chloride 40 MEQ/200 ML BAG IVPB ONE ×2 (04:42→06:42)
[2017-09-14] MEDS ORDERED: predniSONE 20 MG TABLET PO SCH (09:00)
[2017-09-14] MEDS ORDERED: *HR* Dextrose 50 % in Water (Syg) 50 ML SYRINGE IVP PRN (10:12)
[2017-09-14] MEDS ORDERED: D5% in Water 1,000 ML IVC PRN (10:12)
[2017-09-14] MEDS ORDERED: Dextrose Gel 15 GM/37.5 ML TUBE PO PRN ×2 (10:12)
[2017-09-14] MEDS: Potassium Chloride 40 MEQ/200 ML BAG IVPB SCH ×3 (11:18→16:42)
[2017-09-14] MEDS: D5% in 0.45% NACL 1,000 ML IVC SCH (11:19)
[2017-09-14] MEDS ORDERED: Insulin LISPRO 300 UNITS/3 ML VIAL SQ SCH (12:00)
--- NOTE | 2017-09-14 13:31 | Internal Med Progress Note ---
Date of Encounter: 09/14/17 Time of Encounter: 12:15 - Assessment and plan (1) Sepsis Current Visit: Yes Status: Acute Assessment and plan: Cultures remain negative. WBC count elevated today at 20. Likely due to steroid use. Patient is clinically getting better. On Zosyn. Qualifiers: Sepsis type: sepsis due to unspecified organism Qualified Code(s): A41.9 - Sepsis, unspecified organism (2) COPD (chronic obstructive pulmonary disease) Current Visit: Yes Status: Acute Assessment and plan: Continue bronchodilators. Taper steroids. Qualifiers: COPD type: emphysema Emphysema type: panlobular Qualified Code(s): J43.1 - Panlobular emphysema (3) Acute respiratory failure with hypoxia Current Visit: Yes Status: Acute Assessment and plan: Improving. Patient is currently on room air. We will transfer out of ICU when bed available. (4) Non-small cell carcinoma of right lung Current Visit: Yes Status: Chronic Assessment and plan: follow-up outpatient with oncology. CTA done initially did show increase in right hilar mass. Patient also has right upper lobe with left axis with persistent postobstructive parenchymal disease and right upper lobe. These findings do contribute to the patient's symptoms of respiratory failure. (5) Seizure Current Visit: Yes Status: Suspected Assessment and plan: No new episodes of seizures. (6) Dysphagia Current Visit: Yes Status: Acute Assessment and plan: Evaluated with videofluoroscopic barium swallow study today. Speech therapy following. Placed on a soft diet with nectar thickened liquids. Qualifiers: Dysphagia type: oropharyngeal phase Qualified Code(s): R13.12 - Dysphagia, oropharyngeal phase (7) DVT prophylaxis Current Visit: Yes Status: Acute Assessment and plan: subcutaneous heparin - Subjective Interval history: Patient is sitting up in bed. Appears comfortable. is present at bedside and reports that patient has been anxious especially at night and was unable to sleep. He denies any chest pain at this time. No body aches. No fever or chills. No shortness of breath at this time. - Constitutional Vitals: Temp Pulse Resp BP Pulse Ox 97.5 F L 107 16 94/57 97 09/14/17 12:00 09/14/17 12:00 09/14/17 12:00 09/14/17 12:00 09/14/17 12:00 General appearance: Present: cooperative, mild distress, A&O X 3, answers questions appropriately - Neck Neck exam general surgery: Present: supple, trachea midline. Absent: lymphadenopathy - Respiratory Respiratory exam: Present: prolonged expiratory phase. Absent: accessory muscle use, rales, rhonchi, wheezes - Cardiovascular Cardiovascular exam: Present: RRR, +S1, +S2. Absent: diastolic murmur, gallop, rubs, systolic murmur - GI/Abdominal GI/Abdominal exam: Present: normal bowel sounds, soft, no peritoneal signs. Absent: distended, tenderness - Extremities Exam Extremities exam: Present: warm, radial pulses palpable and symmetrical. Absent : calf tenderness, cyanotic, pedal edema - Neurological Exam Neurological exam: Present: alert, oriented X3, no focal deficits. Absent: facial droop, speech deficit Internal Medicine: Result - Labs CBC & Chem 7: 09/14/17 03:29 09/14/17 03:29 Labs: Short CBC 09/14/17 Range/Units 03:29 WBC 21.0 H (4.3-11.1) K/mcL Hgb 10.2 L D (12.9-16.9) g/dL Hct 30.2 L (37.5-50.1) % Plt Count 369 (140-400) K/mcL Neutrophils # 18.3 H (1.6-8.9) K/mcL BMP 09/14/17 03:29 Sodium 132 L Potassium 2.4 L* Chloride 93 L Carbon Dioxide 27 BUN 11 Creatinine 0.37 L Glucose 55 L Calcium 8.2 L - ABG Interpretation ABG results: ABG ABG pH 7.42 pH Units (7.32-7.45) 09/12/17 04:00 ABG pCO2 35 mmHg (35-45) 09/12/17 04:00 ABG pO2 79 mmHg (85-104) L 09/12/17 04:00 ABG O2 Saturation 96 % (95-98) 09/12/17 04:00 - Impressions Impressions Videofluoroscopic Swallow 09/14/17 09:30 IMPRESSION: Aspiration with thin liquids. Please see separate speech pathology report for full discussion of findings and recommendations. D/ / Javon Marshall MD / Javon Marshall MD Interpreting Provider: Javon Marshall MD Consult Discharge Plan - Plan Referrals: Andre Dodge MD [Primary Care Provider] -
[2017-09-14] MEDS: clonazePAM 0.5 MG TABLET PO PRN (16:23)
[2017-09-14 17:21] LABS: Magnesium 2.1 mg/dL (1.6-2.6)
[2017-09-14] MEDS: *HR* Heparin 5,000 UNIT/ML VIAL SQ SCH (18:30)
[2017-09-14] MEDS: Mirtazapine 15 MG TABLET PO SCH (20:54)
[2017-09-14] MEDS: Potassium Chloride Elixir 20 MEQ/15 ML UDC PO SCH (20:55)
[2017-09-15] MEDS: Ipratropium/Albuterol Neb 3 ML IH SCH ×6 (00:01→21:21)
[2017-09-15] MEDS: D5% in 0.45% NACL 1,000 ML IVC SCH (02:54)
[2017-09-15] MEDS: *HR* Heparin 5,000 UNIT/ML VIAL SQ SCH ×2 (05:12→17:23)
[2017-09-15] MEDS: Aspirin Enteric Coated 81 MG Tablet PO SCH (08:51)
[2017-09-15] MEDS: Potassium Chloride Elixir 20 MEQ/15 ML UDC PO SCH (08:51)
[2017-09-15] MEDS: Insulin LISPRO 300 UNITS/3 ML VIAL SQ SCH ×3 (08:52→17:28)
[2017-09-15] MEDS: predniSONE 20 MG TABLET PO SCH (08:55)
[2017-09-15] MEDS ORDERED: Mirtazapine 15 MG TABLET PO SCH (09:00)
[2017-09-15 09:02] LABS: Basophils % 0.1 %; Eosinophils % 0.2 %; Hematocrit 31.3 % (37.5-50.1); Hemoglobin 10.2 g/dL (12.9-16.9); Immature Granulocytes % 0.8 % (0-4); Lymphocytes # 1.5 K/mcL (0.6-4.6); Lymphocytes % 11.5 %; Mean Corpuscular HGB Conc 32.6 g/dL (31.6-35.5); Mean Corpuscular Hemoglobin 30.1 pg (28.0-33.3); Mean Corpuscular Volume 92.3 fL (83.0-100.0); Mean Platelet Volume 8.3 fL (9.4-12.4); Monocytes # 0.7 K/mcL (0.0-1.3); Monocytes % 5.6 %; Neutrophils # 10.8 K/mcL (1.6-8.9); Platelet Count 292 K/mcL (140-400); Red Blood Count 3.39 M/mcL (4.19-5.50); Red Cell Distribution Width 16.8 % (11.5-14.5); Segmented Neutrophils % 81.8 %
[2017-09-15 09:58] LABS: BUN/Creatinine Ratio 14 (6-26); Blood Urea Nitrogen 5 mg/dL (8-23); Calcium 7.9 mg/dL (8.6-10.3); Carbon Dioxide 28 mEq/L (23-29); Chloride 93 mEq/L (98-107); Glucose 115 mg/dL (70-105); Magnesium 1.7 mg/dL (1.6-2.6); Osmolality,Calculated 266 (280-300); Potassium 2.5 mEq/L (3.5-5.1); Sodium 129 mEq/L (136-145); eGFR For African Americans > 60 (> 60); eGFR For Non-African Americans > 60 (> 60)
[2017-09-15] MEDS ORDERED: Potassium Chloride Elixir 20 MEQ/15 ML UDC PO SCH (11:45)
--- NOTE | 2017-09-15 13:06 | Internal Med Progress Note ---
Date of Encounter: 09/15/17 Time of Encounter: 13:04 - Assessment and plan (1) Acute respiratory failure with hypoxia Current Visit: Yes Status: Acute Assessment and plan: Acute hypoxic respiratory failure secondary to acute COPD exacerbation due to sepsis from healthcare associated pneumonia present upon admission Continue Zosyn day #5 Continue aspiration precautions as the patient has dysphagia Was intubated in the ICU (2) Sepsis Current Visit: Yes Status: Acute Assessment and plan: Cultures remain negative. Slightly hypotensive Start IV fluids with potassium Qualifiers: Sepsis type: sepsis due to unspecified organism Qualified Code(s): A41.9 - Sepsis, unspecified organism (3) Healthcare-associated pneumonia Current Visit: Yes Status: Acute (4) Non-small cell carcinoma of right lung Current Visit: Yes Status: Chronic Assessment and plan: follow-up outpatient with oncology. CTA done initially did show increase in right hilar mass. Patient also has right upper lobe with left axis with persistent postobstructive parenchymal disease and right upper lobe. (5) Seizure Current Visit: Yes Status: Suspected Assessment and plan: No new episodes of seizures. (6) COPD exacerbation Current Visit: No Status: Acute (7) Hypokalemia Current Visit: No Status: Acute Assessment and plan: Replete (8) Tobacco abuse Current Visit: No Status: Chronic (9) Tachycardia Current Visit: Yes Status: Acute Assessment and plan: The patient used to be on metoprolol up until a few months ago Start metoprolol 12.5 g twice a day Holding parameters - Subjective Interval history: Feels weak, mildly short of breath, denies any abdominal pain or dysuria, bringing up grayish phlegm, no fevers, no diarrhea - Constitutional Vitals: Temp Pulse Resp BP Pulse Ox 98 F 114 20 100/72 97 09/15/17 10:52 09/15/17 10:52 09/15/17 11:01 09/15/17 10:52 09/15/17 11:01 General appearance: Present: cachectic, cooperative, mild distress, A&O X 3, answers questions appropriately - Head Head exam: Present: atraumatic, normocephalic - Eye Eye exam: Present: PERRL, conjuntiva pink, sclera anicteric Pupils: Present: PERRL - Neck Neck exam general surgery: Present: supple, trachea midline. Absent: lymphadenopathy - Respiratory Respiratory exam: Present: decreased breath sounds (Very diminished breath sounds), CTAB. Absent: accessory muscle use, rales, rhonchi, wheezes - Cardiovascular Cardiovascular exam: Present: RRR, +S1, +S2, tachycardia. Absent: diastolic murmur, gallop, rubs, systolic murmur - GI/Abdominal GI/Abdominal exam: Present: normal bowel sounds, soft, no peritoneal signs. Absent: distended, tenderness - Extremities Exam Extremities exam: Present: warm, radial pulses palpable and symmetrical. Absent : calf tenderness, cyanotic, pedal edema - Neurological Exam Neurological exam: Present: CN II-XII intact, oriented X3, no focal deficits. Absent: pronater drift, facial droop, speech deficit - Skin Skin exam: Present: dry, intact Internal Medicine: Result - Labs CBC & Chem 7: 09/15/17 08:57 09/15/17 08:57 Labs: Short CBC 09/15/17 Range/Units 08:57 WBC 13.2 H (4.3-11.1) K/mcL Hgb 10.2 L (12.9-16.9) g/dL Hct 31.3 L (37.5-50.1) % Plt Count 292 (140-400) K/mcL Neutrophils # 10.8 H (1.6-8.9) K/mcL BMP 09/14/17 09/15/17 16:35 08:57 Sodium 129 L Potassium 3.0 L 2.5 L* Chloride 93 L Carbon Dioxide 28 BUN 5 L Creatinine 0.37 L Glucose 115 H Calcium 7.9 L - ABG Interpretation ABG results: ABG ABG pH 7.42 pH Units (7.32-7.45) 09/12/17 04:00 ABG pCO2 35 mmHg (35-45) 09/12/17 04:00 ABG pO2 79 mmHg (85-104) L 09/12/17 04:00 ABG O2 Saturation 96 % (95-98) 09/12/17 04:00 Consult Discharge Plan - Plan Referrals: Andre Dodge MD [Primary Care Provider] -
[2017-09-15] MEDS: 0.9 % Sodium Chloride w KCl 20 MEQ/1,000 ML MLS IVC SCH (15:07)
[2017-09-15] MEDS: Mirtazapine 15 MG TABLET PO SCH (20:42)
[2017-09-16] MEDS: Ipratropium/Albuterol Neb 3 ML IH SCH ×7 (00:54→23:44)
[2017-09-16 02:23] LABS: Hematocrit 27.4 % (37.5-50.1); Hemoglobin 9.1 g/dL (12.9-16.9); Immature Granulocytes % 1.1 % (0-4); Lymphocytes # 1.3 K/mcL (0.6-4.6); Lymphocytes % 10.6 %; Mean Corpuscular HGB Conc 33.2 g/dL (31.6-35.5); Mean Corpuscular Hemoglobin 31.2 pg (28.0-33.3); Mean Corpuscular Volume 93.8 fL (83.0-100.0); Mean Platelet Volume 8.3 fL (9.4-12.4); Monocytes # 0.7 K/mcL (0.0-1.3); Monocytes % 5.7 %; Neutrophils # 10.3 K/mcL (1.6-8.9); Platelet Count 252 K/mcL (140-400); Red Blood Count 2.92 M/mcL (4.19-5.50); Red Cell Distribution Width 16.8 % (11.5-14.5); Segmented Neutrophils % 82.6 %
[2017-09-16 03:23] LABS: BUN/Creatinine Ratio 22 (6-26); Blood Urea Nitrogen 9 mg/dL (8-23); Calcium 7.7 mg/dL (8.6-10.3); Carbon Dioxide 26 mEq/L (23-29); Chloride 101 mEq/L (98-107); Glucose 160 mg/dL (70-105); Magnesium 1.9 mg/dL (1.6-2.6); Osmolality,Calculated 276 (280-300); Potassium 3.7 mEq/L (3.5-5.1); Sodium 132 mEq/L (136-145); eGFR For African Americans > 60 (> 60); eGFR For Non-African Americans > 60 (> 60)
[2017-09-16] MEDS: *HR* Heparin 5,000 UNIT/ML VIAL SQ SCH ×2 (06:33→17:43)
--- NOTE | 2017-09-16 08:47 | Internal Med Progress Note ---
Date of Encounter: 09/16/17 Time of Encounter: 08:46 - Assessment and plan (1) Acute respiratory failure with hypoxia Current Visit: Yes Status: Acute Assessment and plan: Acute hypoxic respiratory failure secondary to acute COPD exacerbation due to sepsis from healthcare associated pneumonia present upon admission Continue Zosyn day #6 Continue aspiration precautions as the patient has dysphagia Was intubated in the ICU (2) Sepsis Current Visit: Yes Status: Acute Assessment and plan: Cultures remain negative. Was Slightly hypotensive continue IV fluids with potassium Qualifiers: Sepsis type: sepsis due to unspecified organism Qualified Code(s): A41.9 - Sepsis, unspecified organism (3) Healthcare-associated pneumonia Current Visit: Yes Status: Acute Assessment and plan: CT scan of the chest showed:1. No evidence of pulmonary embolism 2. Right hilar mass felt to have increased in size. There is been progressive right upper lobe atelectasis, with persistent postobstructive parenchymal disease in the right upper lobe 3. Interval improvement in appearance of right lower lobe pneumonia and resolution of right-sided pleural effusion. No new pulmonary abnormality 4. Advanced pulmonary emphysema (4) Non-small cell carcinoma of right lung Current Visit: Yes Status: Chronic Assessment and plan: follow-up outpatient with oncology. CTA done initially did show increase in right hilar mass. Patient also has right upper lobe with left axis with persistent postobstructive parenchymal disease and right upper lobe. (5) Seizure Current Visit: Yes Status: Suspected Assessment and plan: No new episodes of seizures. (6) COPD exacerbation Current Visit: No Status: Acute (7) Hypokalemia Current Visit: No Status: Acute Assessment and plan: Repleted (8) Tobacco abuse Current Visit: No Status: Chronic (9) Tachycardia Current Visit: Yes Status: Acute Assessment and plan: The patient used to be on metoprolol up until a few months ago Started metoprolol 12.5 g twice a day, may increase the dose if needed Holding parameters - Subjective Interval history: Coughing constantly, tachycardic. Feels very weak, mildly short of breath, denies any abdominal pain or dysuria, bringing up grayish phlegm, no fevers, no diarrhea - Constitutional Vitals: Temp Pulse Resp BP Pulse Ox 98 F 107 16 143/82 95 09/16/17 06:53 09/16/17 06:53 09/16/17 07:49 09/16/17 06:53 09/16/17 07:49 General appearance: Present: cachectic, cooperative, mild distress, A&O X 3, answers questions appropriately Exam: - Head Head exam: Present: atraumatic, normocephalic - Eye Eye exam: Present: PERRL, conjuntiva pink, sclera anicteric Pupils: Present: PERRL - Neck Neck exam general surgery: Present: supple, trachea midline. Absent: lymphadenopathy - Respiratory Respiratory exam: Present: decreased breath sounds (Very diminished breath sounds), CTAB. Absent: accessory muscle use, rales, rhonchi, wheezes - Cardiovascular Cardiovascular exam: Present: RRR, +S1, +S2, tachycardia. Absent: diastolic murmur, gallop, rubs, systolic murmur - GI/Abdominal GI/Abdominal exam: Present: normal bowel sounds, soft, no peritoneal signs. Absent: distended, tenderness - Extremities Exam Extremities exam: Present: warm, radial pulses palpable and symmetrical. Absent : calf tenderness, cyanotic, pedal edema - Neurological Exam Neurological exam: Present: CN II-XII intact, oriented X3, no focal deficits. Absent: pronater drift, facial droop, speech deficit - Skin Skin exam: Present: dry, intact Internal Medicine: Result - Labs CBC & Chem 7: 09/16/17 02:10 09/16/17 02:10 Labs: Short CBC 09/15/17 09/16/17 Range/Units 08:57 02:10 WBC 13.2 H 12.5 H (4.3-11.1) K/mcL Hgb 10.2 L 9.1 L (12.9-16.9) g/dL Hct 31.3 L 27.4 L (37.5-50.1) % Plt Count 292 252 (140-400) K/mcL Neutrophils # 10.8 H 10.3 H (1.6-8.9) K/mcL BMP 09/15/17 09/16/17 08:57 02:10 Sodium 129 L 132 L Potassium 2.5 L* 3.7 D Chloride 93 L 101 Carbon Dioxide 28 26 BUN 5 L 9 Creatinine 0.37 L 0.41 L Glucose 115 H 160 H Calcium 7.9 L 7.7 L - ABG Interpretation ABG results: ABG ABG pH 7.42 pH Units (7.32-7.45) 09/12/17 04:00 ABG pCO2 35 mmHg (35-45) 09/12/17 04:00 ABG pO2 79 mmHg (85-104) L 09/12/17 04:00 ABG O2 Saturation 96 % (95-98) 09/12/17 04:00 Consult Discharge Plan - Plan Referrals: Andre Dodge MD [Primary Care Provider] -
[2017-09-16] MEDS: 0.9 % Sodium Chloride w KCl 20 MEQ/1,000 ML MLS IVC SCH (09:53)
[2017-09-16] MEDS: predniSONE 20 MG TABLET PO SCH (09:54)
[2017-09-16] MEDS: Aspirin Enteric Coated 81 MG Tablet PO SCH (09:54)
[2017-09-16] MEDS: Insulin LISPRO 300 UNITS/3 ML VIAL SQ SCH ×3 (09:54→17:50)
[2017-09-16] MEDS: Mirtazapine 15 MG TABLET PO SCH (22:37)
[2017-09-17] MEDS: 0.9 % Sodium Chloride w KCl 20 MEQ/1,000 ML MLS IVC SCH (03:30)
[2017-09-17] MEDS: Ipratropium/Albuterol Neb 3 ML IH SCH ×4 (03:39→15:23)
[2017-09-17] MEDS: *HR* Heparin 5,000 UNIT/ML VIAL SQ SCH (06:44)
[2017-09-17 07:46] LABS: BUN/Creatinine Ratio 19 (6-26); Blood Urea Nitrogen 7 mg/dL (8-23); Calcium 7.9 mg/dL (8.6-10.3); Carbon Dioxide 26 mEq/L (23-29); Chloride 98 mEq/L (98-107); Glucose 123 mg/dL (70-105); Magnesium 1.4 mg/dL (1.6-2.6); Osmolality,Calculated 273 (280-300); Potassium 3.2 mEq/L (3.5-5.1); Sodium 132 mEq/L (136-145); eGFR For African Americans > 60 (> 60); eGFR For Non-African Americans > 60 (> 60)
[2017-09-17 08:01] LABS: Basophils % 0.2 %; Eosinophils % 0.1 %; Hematocrit 28.2 % (37.5-50.1); Hemoglobin 9.1 g/dL (12.9-16.9); Immature Granulocytes % 1.1 % (0-4); Lymphocytes # 1.5 K/mcL (0.6-4.6); Lymphocytes % 12.2 %; Mean Corpuscular HGB Conc 32.3 g/dL (31.6-35.5); Mean Corpuscular Hemoglobin 30.8 pg (28.0-33.3); Mean Corpuscular Volume 95.6 fL (83.0-100.0); Mean Platelet Volume 8.9 fL (9.4-12.4); Monocytes % 7.6 %; Platelet Count 278 K/mcL (140-400); Red Blood Count 2.95 M/mcL (4.19-5.50); Red Cell Distribution Width 17.1 % (11.5-14.5); Segmented Neutrophils % 78.8 %
[2017-09-17] MEDS: Aspirin Enteric Coated 81 MG Tablet PO SCH (08:51)
[2017-09-17] MEDS: predniSONE 20 MG TABLET PO SCH (08:51)
[2017-09-17] MEDS: Insulin LISPRO 300 UNITS/3 ML VIAL SQ SCH ×2 (08:52→12:28)
--- NOTE | 2017-09-17 09:58 | Discharge Summary ---
Date of Encounter: 09/17/17 Time of Encounter: 09:53 - Discharge Diagnosis (1) Acute respiratory failure with hypoxia Priority: Primary Status: Acute Comments: Acute hypoxic respiratory failure secondary to acute COPD exacerbation due to sepsis from healthcare associated pneumonia present upon admission (2) Sepsis Priority: Primary Status: Acute Qualifiers: Sepsis type: sepsis due to unspecified organism Qualified Code(s): A41.9 - Sepsis, unspecified organism (3) Healthcare-associated pneumonia Priority: Primary Status: Acute (4) Non-small cell carcinoma of right lung Priority: Secondary Status: Chronic (5) Seizure Priority: Secondary Status: Suspected Comments: Unlikely seizures. No new episodes of seizures. (6) COPD exacerbation Priority: Primary Status: Acute (7) Hypokalemia Priority: Secondary Status: Acute (8) Tobacco abuse Priority: Secondary Status: Chronic (9) Tachycardia Priority: Secondary Status: Acute Comments: Sinus tachycardia likely related to pneumonia - Discharge Medications Prescriptions: Amoxicillin/Clavulanate [Augmentin] 875 mg PO BIDWM #8 tablet Metoprolol [Lopressor] 25 mg PO BID #60 tablet Potassium Chloride 20 meq PO DAILY #30 tab.er.prt predniSONE [PredniSONE] 40 mg PO DAILY 20 Days tablet Home Medications: Folic Acid 1 mg PO DAILY #30 tablet 04/23/17 [Rx] Aspirin Enteric Coated [Aspirin EC] 81 mg PO DAILY 06/24/17 [History] Lactobacillus Acidophilus [Acidophilus] 1 cap PO DAILY 06/24/17 [History] Loratadine [Allergy Relief] 10 mg PO DAILY 06/24/17 [History] Simvastatin [Zocor] 40 mg PO HS 06/24/17 [History] Thiamine (B-1) [Vitamin B-1] 100 mg PO DAILY 06/24/17 [History] Magnesium 250 mg PO DAILY 07/06/17 [History] Megestrol Acetate [Megace] 20 ml PO DAILY #600 mls 07/06/17 [Rx] Ondansetron HCl [Zofran] 4 mg PO Q8H #60 tablet 07/09/17 [Rx] Albuterol Sulfate [Albuterol Inhaler] 2 puff IH Q4HR PRN #1 hfa.aer.ad 08/08/17 [Rx] Mirtazapine [Remeron] 30 mg PO DAILY 09/11/17 [History] Pantoprazole Sodium 40 mg PO DAILY 09/11/17 [History] Paroxetine HCl [Paxil] 10 mg PO DAILY 09/11/17 [History] Amoxicillin/Clavulanate [Augmentin] 875 mg PO BIDWM #8 tablet 09/17/17 [Rx] Metoprolol [Lopressor] 25 mg PO BID #60 tablet 09/17/17 [Rx] Potassium Chloride 20 meq PO DAILY #30 tab.er.prt 09/17/17 [Rx] predniSONE [PredniSONE] 40 mg PO DAILY 20 Days tablet 09/17/17 [Rx] Allergies/Adverse Reactions: 3 Allergy/AdvReac Type Severity Reaction Status Date / Time losartan [From Cozaar] Allergy See Verified 07/29/17 10:06 Comments Date of admission: 09/11/17 12:58 Primary care physician: Andre Dodge MD Consults: 09/11/17 13:56 PICC Consult [Consult to Invasive Line Access Team] [CONS] Stat Reason for Consult: Access Line Type: PICC 09/11/17 15:18 Consult to Nutrition [CONS] Routine Comment: Consulting Provider: NUTRITION Reason for Dietary Consult: Tube Feed Start & Manage Consult to Pastoral Services [CONS] Routine Comment: 09/11/17 15:26 Consult to Invasive Line Access Team [CONS] Routine Reason for Consult: Picc Line Insertion Line Type: PICC 09/12/17 21:54 Consult to Speech Therapy [CONS] Routine Comment: Evaluate, develop and implement POC Reason for Consult: patient will need barium swallow Call Completed: No 09/16/17 08:50 Consult to Occupational Therapy [CONS] Routine Comment: Evaluate, develop and implement POC Reason for Consult: eval Consult to Physical Therapy [CONS] Routine Comment: Evaluate, develop and implement POC Reason for Consult: eval - Patient Status Disposition: Home Health Service Condition: Fair Overall status at discharge: patient is back to baseline - Discharge Instructions Follow Up With: Andre Dodge MD [Primary Care Provider] - Additional Instructions: Follow-up with primary care physician and oncologist within the next week or 2. Follow prednisone taper. Complete 4 more days of Augmentin. Continue Lopressor 25 g twice a day but dose can be reduced to 12.5 mg twice a day if heart rate drops below 55 or blood pressure drops below 90. - Diet and Activity Activity: wear oxygen at all times Diet: low fat, low cholesterol Hospital course: Mr. Barfield is a 62 year old male with history of non-small cell carcinoma of the lung, hypertension, COPD oxygen dependent arrived to [facility] emergency department via EMS after the patient stated he was not been feeling well at home. The patient recently had an admission for a pneumonia and was admitted to the [facility]. There he received IV antibiotics. Upon discharge home after receiving antibiotics for pneumonia, likely hospital-acquired, the patient was discharged on 10 days of levofloxacin. The patient's stated that on day 6 of his home therapy of the levofloxacin the patient began feeling well. He was continued on levofloxacin. He continued however to experience worsening difficulty breathing , cough, dyspnea over the course in the past few days. Patient wears 2 L NC O2 all the time. The patient has required 4L O2 over the past 24 hours due to worsening dyspnea prior to admission. The patient's called EMS to bring the patient to the ED because she was worried that the patient was severely dehydrated as the patient has not eaten or drank in the past couple days. Upon arrival to the emergency department the patient was began to be resuscitated but then had a what appears to be grand mal seizure according to ED report. His pulse oximetry dropped down into the low 70s with respiratory distress. The patient was subsequently intubated, sedated with propofol. The patient's last chemotherapy treatment was on July 28 and 2016. The patient has not received any treatment since then due to being ill with pneumonia. The patient had a CT scan of his chest which demonstrated enlarging tumor with postobstructive changes. Lab work demonstrated an elevated lactic acid at 6.3, a leukocytosis, a BNP of 167, and a negative troponin. Started metoprolol 12.5 g twice a day, dose was increased to [address] scan of the chest showed:1. No evidence of pulmonary embolism 2. Right hilar mass felt to have increased in size. There is been progressive right upper lobe atelectasis, with persistent postobstructive parenchymal disease in the right upper lobe 3. Interval improvement in appearance of right lower lobe pneumonia and resolution of right-sided pleural effusion. No new pulmonary abnormality 4. Advanced pulmonary emphysema He has completed 7 days of Zosyn, family prefers him to go home with home health services and have declined physical therapy evaluation. Risks were explained. Patient will be discharged on the redness and taper as he has responded properly to IV steroids. - Time Spent with Patient Total time spent providing and/or coordinating discharge services: Greater than 30 minutes (40 min) - Constitutional Vitals: Temp Pulse Resp BP Pulse Ox 98.5 F 110 16 146/90 95 09/17/17 06:57 09/17/17 06:57 09/17/17 08:14 09/17/17 06:57 09/17/17 08:14 General appearance: Present: cachectic, cooperative, mild distress, A&O X 3, answers questions appropriately Exam: Cachectic - Head Head exam: Present: atraumatic, normocephalic - Eye Eye exam: Present: PERRL, conjuntiva pink, sclera anicteric Pupils: Present: PERRL - Neck Neck exam general surgery: Present: supple, trachea midline. Absent: lymphadenopathy - Respiratory Respiratory exam: Present: decreased breath sounds (diminished breath sounds), CTAB. Absent: accessory muscle use, rales, rhonchi, wheezes - Cardiovascular Cardiovascular exam: Present: RRR, +S1, +S2, tachycardia. Absent: diastolic murmur, gallop, rubs, systolic murmur - GI/Abdominal GI/Abdominal exam: Present: normal bowel sounds, soft, no peritoneal signs. Absent: distended, tenderness - Extremities Exam Extremities exam: Present: warm, radial pulses palpable and symmetrical. Absent : calf tenderness, cyanotic, pedal edema - Neurological Exam Neurological exam: Present: CN II-XII intact, oriented X3, no focal deficits. Absent: pronater drift, facial droop, speech deficit - Skin Skin exam: Present: dry, intact
--- NOTE | 2017-09-17 10:15 | Physician Discharge Referral ---
Home Health/Hosp Referral Info Transfer to: Home Health Provider in Charge Post Discharge: PCP - Diagnosis (1) Acute respiratory failure with hypoxia Status: Acute (2) Sepsis Status: Acute (3) Healthcare-associated pneumonia Status: Acute (4) Non-small cell carcinoma of right lung Status: Chronic (5) Seizure Status: Suspected (6) COPD exacerbation Status: Acute (7) Hypokalemia Status: Acute (8) Tobacco abuse Status: Chronic (9) Tachycardia Status: Acute - Respiratory Orders Oxygen / L per min (2 L) Smoking Cessation: Smoking cessation has been advised. For more information, call the [place] Tobacco Quit Line at 7-043-LLNM-NOW. - Diet/Nutrition Diet/Nutrition Orders: Mechanical Soft (Solen thick liquids) - Services Needed Following services are medically necessary services: Nursing, Home Health Aide, Physical Therapy, Occupational Therapy Home Care Orders: Follow-up with primary care physician and oncologist within the next week or 2. Follow prednisone taper. Complete 4 more days of Augmentin. Continue Lopressor 25 g twice a day but dose can be reduced to 12.5 mg twice a day if heart rate drops below 55 or blood pressure drops below 90. - Transfer Medications Prescriptions: Amoxicillin/Clavulanate [Augmentin] 875 mg PO BIDWM #8 tablet Metoprolol [Lopressor] 25 mg PO BID #60 tablet Potassium Chloride 20 meq PO DAILY #30 tab.er.prt predniSONE [PredniSONE] 40 mg PO DAILY 20 Days tablet Home Medications: Folic Acid 1 mg PO DAILY #30 tablet 04/23/17 [Rx] Aspirin Enteric Coated [Aspirin EC] 81 mg PO DAILY 06/24/17 [History] Lactobacillus Acidophilus [Acidophilus] 1 cap PO DAILY 06/24/17 [History] Loratadine [Allergy Relief] 10 mg PO DAILY 06/24/17 [History] Simvastatin [Zocor] 40 mg PO HS 06/24/17 [History] Thiamine (B-1) [Vitamin B-1] 100 mg PO DAILY 06/24/17 [History] Magnesium 250 mg PO DAILY 07/06/17 [History] Megestrol Acetate [Megace] 20 ml PO DAILY #600 mls 07/06/17 [Rx] Ondansetron HCl [Zofran] 4 mg PO Q8H #60 tablet 07/09/17 [Rx] Albuterol Sulfate [Albuterol Inhaler] 2 puff IH Q4HR PRN #1 hfa.aer.ad 08/08/17 [Rx] Mirtazapine [Remeron] 30 mg PO DAILY 09/11/17 [History] Pantoprazole Sodium 40 mg PO DAILY 09/11/17 [History] Paroxetine HCl [Paxil] 10 mg PO DAILY 09/11/17 [History] Amoxicillin/Clavulanate [Augmentin] 875 mg PO BIDWM #8 tablet 09/17/17 [Rx] Metoprolol [Lopressor] 25 mg PO BID #60 tablet 09/17/17 [Rx] Potassium Chloride 20 meq PO DAILY #30 tab.er.prt 09/17/17 [Rx] predniSONE [PredniSONE] 40 mg PO DAILY 20 Days tablet 09/17/17 [Rx] Allergies/Adverse Reactions: 3 Allergy/AdvReac Type Severity Reaction Status Date / Time losartan [From Cozaar] Allergy See Verified 07/29/17 10:06 Comments Certification: Further, I certify that my clinical findings support that this patient is homebound (i.e. absences from home require considerable and taxing effort and are for medical reasons or mormon services or infrequently or short duration when for other reasons) because: Homebound Reason: Patient requires assistance of a person or device to safely leave home Attestation: My signature below is to certify that this patient is under my care and that I, or nurse practitioner, or a physician's information assistant working with me, has a face-to -face encounter with this patient.
[2017-09-17] MEDS: clonazePAM 0.5 MG TABLET PO PRN (12:27)
[2017-09-17 15:27] VITALS: BP 126/74
== END 2017-09-17 18:04 | disposition home health service (06) | DRG 871 ==
LOC: EMEROO 10:40 → ICNU 12:58 → SUATTDRO 12:58 → ICNU 14:05 → 2NENU 09-14 19:23
PROVIDERS: ADMIT Internal Medicine Hospice and Palliative Medicine; ATTEND Internal Medicine